=== PATIENT | male | born 1945 | race African-American/Black ===

== ENCOUNTER 2016-11-07 16:21 | Inpatient (IN) | payer MEDICARE ==
[~2016-11-07] VITALS: Ht 193 cm; Wt 112.0 kg
--- NOTE | ~2016-11-07 | OP ---
PATIENT NAME: CARLOS ALEMAN MEDICAL RECORD: [id number] :43 LOCATION:D.M2 D.2132 ADMISSION DATE:11/07/16 SURGEON: GHAZAL FONSECA MD DATE OF OPERATION: 11/10/2016 PROCEDURE: Colonoscopy. REFERRING PHYSICIAN: Yimi Knowles MD. INDICATIONS: Mr. Aleman is a very pleasant 71-year-old gentleman with a history of end-stage renal disease and resolving pancreatitis. He was admitted secondary to abdominal pain, but he has had no abdominal pain since admission. He had a CT scan of the abdomen and pelvis without contrast, 11/07/2016 that showed some mild stranding around the pancreatic head, large amount of fecal material in the colon, atrophic appearing kidneys. His amylase and lipase have been normal during his hospitalization. He has had some problems with constipation and he may have had a colonoscopy in the remote past. He presents for inpatient colonoscopy to rule out any GI source of abdominal pain. PREMEDICATIONS: Total IV anesthesia (end-stage renal disease), ASA 4, propofol 400 mg. INSTRUMENT: Olympus video colonoscope. PROCEDURE AND FINDINGS: After receiving informed consent, Mr. Aleman was placed in left lateral decubitus position and sedated as per anesthesia. After achieving an adequate level of sedation, digital rectal exam was performed that showed no external hemorrhoidal tags, fissures or fistulas, normal sphincter tone, no palpable rectal masses. The colonoscope was introduced per rectally and advanced to the cecum with a little difficulty. He had a long and redundant colon. The cecum, IC valve, and appendiceal orifice were identified and appeared normal. As the colonoscope was withdrawn, careful inspection was made of the brooks of the colon. Overall mucosa had a normal vascular and fold pattern. No masses, ulcers or diverticula were noted. Retroflexion in rectum showed no significant internal hemorrhoids. A fair prep was present. Mr. Aleman tolerated the procedure well, no immediate complications. ASSESSMENT: 1. Long and redundant colon, otherwise normal colonoscopy. 2. Chronic constipation. RECOMMENDATIONS: 1. MiraLax daily to twice a day as needed. 2. High fiber diet. 3. Stable for discharge from GI standpoint. TRANSINT:[id number] Voice Confirmation ID: [id number] DOCUMENT ID: [id number] OPERATIVE REPORT [id number] CARLOS ALEMAN GHAZAL FONSECA MD CC: YIMI KNOWLES MD [id number] DICTATION DATE: 11/10/16 1410 COATING MIXER TENDER: 11/10/16 4446 DIS IN 11/10/16 [facility] [address] [id number]
[~2016-11-07 16:21] MED LIST: AMITRIPTYLINE H50 MG PO; ARICEPT10 MG PO; BAYER CHEWABLE81 MG PO; BUMEX2 MG PO; CATAPRES0.1 MG PO; COLACE100 MG PO; FLOMAX0.4 MG PO; GLYCOLAX527 GM PO; HUMULIN N100 U/ML SC; LEVOTHYROXINE50 MCG PO; MECLIZINE HCL25 MG PO; METOLAZONE5 MG PO; NAMENDA5 MG PO; NITROQUICK0.4 MG SL; NORVASC10 MG PO; PLAVIX75 MG PO; RENVELA800 MG; RENVELA800 MG PO; SENSIPAR60 MG PO; TOPROL XL25 MG PO; TYLENOL W/CODEI1 TAB PO; ULTRAM50 MG PO; ZETIA10 MG PO
[2016-11-07 16:59] LABS: BASOPHILS 0.3 % (0-2); EOSINOPHILS 3.3 % (0-7); HEMATOCRIT 31.7 % (42.0-54.0); HEMOGLOBIN 10.6 g/dL (13.5-17.5); IMMATURE GRANULOCYTES 0.6 % (0-5); LYMPHOCYTES 7.9 % (15-50); MCH 29.6 pg (26.0-34.0); MCHC 33.4 g/dL (31.0-37.0); MCV 88.5 fL (80.0-100.0); MEAN PLATELET VOLUME 10.2 fL (7.4-10.4); NEUTROPHILS 73.9 % (40-80); RBC 3.58 10x6/uL (4.20-6.10); RDW 13.2 % (11.5-14.5); WBC 7.2 10x3/uL (4.8-10.8)
--- NOTE | 2016-11-07 17:00 | NUR ---
ARRIVE TO ROOM VIA WHEELCHAIR FROM [facility] ACCOMPANIED BY . ALERT AND ORIENTED X4. REPORTS VOICE CHANGE, ABDOMINAL PAIN, AND WEAKNESS. 4L TAKEN OFF DURING DIALYSIS TODAY. REPORTS 3L OVER DRY WEIGHT STILL. RESERVE LT ARM. LT AV FISTULA. BRUIT AND THRILL PRESENT. UNSUCCESSFUL IV SITE X2 ATTEMPTS. COMPLAINS OF SOB. IN ROOM ASSESSING PATIENT. CONTINUE ADMISSION PROCESS. SCDs IN ROOM. REFUSE SCDs ON AT THIS TIME. BED LOCKED AND LOW. CALL LIGHT IN REACH. TWO SIDERAILS UP.
[2016-11-07 17:22] LABS: PLATELET COUNT 224 10x3/uL (130-400)
[2016-11-07] MEDS ORDERED: REMERON15 MG PO (17:25)
[2016-11-07 17:34] LABS: ALBUMIN 3.1 g/dL (3.4-5.0); BILIRUBIN - TOTAL 0.31 mg/dL (0.2-1.3); CALCIUM 8.6 mg/dL (8.5-10.1); CARBON DIOXIDE 34.4 mmol/L (21.0-32.0); CREATININE - SERUM 4.4 mg/dL (0.6-1.3); POTASSIUM - SERUM 4.4 mmol/L (3.5-5.1); PROTEIN - SERUM 6.4 g/dL (6.4-8.2)
[2016-11-07 17:56] VITALS: BP 147/75; BMI 24.5
--- NOTE | 2016-11-07 19:25 | NUR ---
RECEIVED REPORT, PT DENIES ANY NEEDS, FAMILY AT BEDSIDE, CALL LIGHT IN REACH, BED IS LOW, SRX2, WILL CONTINUE CARE OF PLAN
[2016-11-07 20:00] VITALS: BP 132/68
--- NOTE | 2016-11-08 00:05 | NUR ---
EXPLAIN TO PT WE NEED A 24HR URINE, ASK HIM TO CALL AFTER HE VOIDS, SO WE CAN START
[2016-11-08 01:32] VITALS: BP 129/64
--- NOTE | 2016-11-08 01:46 | NUR ---
IV RESTARTED IN R AC WITH 20 1 IN ON 1ST ATTEMPT. CO LEGS ACHING. AT BEDSIDE.
[2016-11-08 04:16] VITALS: BP 116/61
--- NOTE | 2016-11-08 04:28 | NUR ---
ASSESSMENT COMPLETE, PT SLEEPING, STILL HASNT VOIDED, CALL LIGHT IN REACH, WILL CONTINUE PLAN OF CARE
[2016-11-08 06:27] LABS: BASOPHILS 0.8 % (0-2); HEMATOCRIT 31.1 % (42.0-54.0); HEMOGLOBIN 10.3 g/dL (13.5-17.5); IMMATURE GRANULOCYTES 0.3 % (0-5); MCH 29.2 pg (26.0-34.0); MCHC 33.1 g/dL (31.0-37.0); MCV 88.1 fL (80.0-100.0); MEAN PLATELET VOLUME 10.1 fL (7.4-10.4); MONOCYTES 11.9 % (2-11); PLATELET COUNT 219 10x3/uL (130-400); RBC 3.53 10x6/uL (4.20-6.10); RDW 13.4 % (11.5-14.5); WBC 6.5 10x3/uL (4.8-10.8)
[2016-11-08 06:55] LABS: ANION GAP 9.7 mmol/L (8-16); CALCIUM 8.9 mg/dL (8.5-10.1); CARBON DIOXIDE 32.8 mmol/L (21.0-32.0); CREATININE - SERUM 5.2 mg/dL (0.6-1.3); POTASSIUM - SERUM 4.5 mmol/L (3.5-5.1); THYROID STIMULATING HORMONE 0.75 uIU/mL (0.36-3.74)
--- NOTE | 2016-11-08 07:25 | NUR ---
PATIENT IS RESTING QUIETLY WITH EYES CLOSED I ENTER. AWOKE EASILY TO MY ENTRY. DENIES PAIN/NEEDS AT THIS TIME. SPOUSE IS ASLEEP WITH EYES CLOSED IN THE BEDSIDE CHAIR.
[2016-11-08 08:33] VITALS: BP 156/71
--- NOTE | 2016-11-08 10:30 | NUR ---
SELDOM URINATES PER STATEMENT. ASKED THAT HE NOTIFY STAFF WHEN HE DOES DUE TO NEED TO COLLECT ANY URINE.
[2016-11-08 12:31] VITALS: BP 141/65
--- NOTE | 2016-11-08 12:45 | NUR ---
INSULIN HELD THIS MEAL AGAIN DUE TO HIM ONLY DRINKING THE JUICE ON HIS CL DIET. WILL MONITOR CLOSELY. AT [facility] BEDSIDE IS ATTENTIVE TO HIS NEEDS. HE STATES THAT HE IS VERY HUNGRY AND WANTS TO EAT. HE VOICED UNDERSTANDING THAT HE IS TO REST THE BELLY TO ENCOURAGE HEALING.
[2016-11-08 13:58] VITALS: Ht 193 cm; Wt 112.0 kg
[2016-11-08 16:55] VITALS: BP 135/66
[2016-11-08 19:00] VITALS: BP 146/67
--- NOTE | 2016-11-08 19:25 | NUR ---
RECEIVED REPORT, PT ASKING ABOUT GI CONSULT, DR. IRAHETA WALK IN, HAS L. AVF-WNL, DIALYSIS- T, TH, SAT, BED IS LOW, SRX2, CALL LIGHT IN REACH, WILL CONTINUE PLAN OF CARE
--- NOTE | 2016-11-08 21:10 | NUR ---
BLOODSUGAR-271- 6 UNITS IF HUMALOG PER ORDER
--- NOTE | 2016-11-08 23:36 | NUR ---
CALLED SAID BS WAS DOWN- CHECK-42
--- NOTE | 2016-11-08 23:38 | NUR ---
YOJANA GAVE 25 AMP-D50
--- NOTE | 2016-11-08 23:43 | NUR ---
[facility].
--- NOTE | 2016-11-08 23:51 | NUR ---
BLOODSUGAR-154, PT ATE SOME JELLO
[2016-11-09 00:20] VITALS: BP 141/72
--- NOTE | 2016-11-09 00:37 | NUR ---
LUMBER BUYER AT BEDSIDE TO OBTAIN VITALS, CALL LIGHT IN REACH. WILL CONTINUE WITH PLAN OF CARE.
--- NOTE | 2016-11-09 00:57 | NUR ---
GLUCOSE PER LAB-91
--- NOTE | 2016-11-09 01:23 | NUR ---
PT WAS WALKING OUT IN [place], UN AWARE OF WHAT HE WAS DOING, RECHECK BLOODSUGAR-81, GAVE APPLE JUICE, PLACE PT BACK IN BED, PLACE NON SKID SOCK ON AND PLACED BED ALARM ON, WILL CONTINUE TO MONITOR
--- NOTE | 2016-11-09 04:15 | NUR ---
ASSESSMENT COMPLETE, SEE FLOWSHEET, SLEEPING, BED ALARM ON, AT BEDSIDE, CALL LIGHT IN REACH
[2016-11-09 04:37] VITALS: BP 157/78
[2016-11-09 06:54] LABS: BASOPHILS 0.3 % (0-2); EOSINOPHILS 4.1 % (0-7); IMMATURE GRANULOCYTES 0.2 % (0-5); MCH 29.2 pg (26.0-34.0); MCHC 33.3 g/dL (31.0-37.0); MCV 87.7 fL (80.0-100.0); MEAN PLATELET VOLUME 9.6 fL (7.4-10.4); MONOCYTES 9.8 % (2-11); NEUTROPHILS 74.6 % (40-80); PLATELET COUNT 222 10x3/uL (130-400); RBC 3.42 10x6/uL (4.20-6.10); WBC 6.1 10x3/uL (4.8-10.8)
[2016-11-09 07:14] LABS: ANION GAP 11.2 mmol/L (8-16); CALCIUM 8.2 mg/dL (8.5-10.1); CARBON DIOXIDE 31.4 mmol/L (21.0-32.0); POTASSIUM - SERUM 4.6 mmol/L (3.5-5.1)
[2016-11-09 08:20] VITALS: BP 145/67
--- NOTE | 2016-11-09 08:27 | NUR ---
PATIENT IS AWAKE ALERT AND ORIENTED X3, SPOUSE IS IN ROOM, SHE MOSTLY ANSWERS QUESTIONS BOUT HIS MEDS. SHE SAYS HE NEVER TAKES HUMALOG JUST HUMILIN N IN PM AND REGULAR INSULIN SLIDING SCALE.
--- NOTE | 2016-11-09 09:50 | NUR ---
DIALYASIS NURSE CALLED AND STATES SHE IS READY FOR PATIENT ASKED HER IF SPOUSE CAN COME WITH SHE NORMALLY DOES. NURSE STATES SHE CAN, BUT SHE WILL HAVE TO SIT AWAY D/T HIPPA. EXPLAINED THIS TO SPOUSE.
--- NOTE | 2016-11-09 10:05 | NUR ---
PATIENT GONE DOWN FOR DIALYSIS.
--- NOTE | 2016-11-09 12:00 | NUR ---
NO FSBS TAKEN PATIENT IS STILL IN DIALYSIS.
--- NOTE | 2016-11-09 14:36 | NUR ---
PATIENT IS BACK FROM DIALYSIS. HE IS UPSET THAT HE HAS NOT BEEN DISCHARGED. PATIENT JUST HAD A BOWEL MOVEMENT A SMALL ONE. HE IS SUPPOSED TO SEE THE Jeffery ALEXANDER
[2016-11-09 16:54] VITALS: BP 143/64
--- NOTE | 2016-11-09 19:30 | NUR ---
RESUMED CARE OF PT, PT DENIES ANY NEEDS, BED IS LOW, SRX2, AT BEDSIDE, CALL LIGHT IN REACH, WILL CONTINUE PLAN OF CARE
[2016-11-09 22:47] VITALS: BP 158/73
--- NOTE | 2016-11-10 00:34 | NUR ---
DIALYSIS COORDINATOR: PATHWAYS: [facility] TUES/THURS/SAT @ 6:30. RECORDS SENT TO HOME UNIT. BMM DC
--- NOTE | 2016-11-10 00:37 | NUR ---
TABLE FILLER AT BEDSIDE TO OBTAIN VITALS, CALL LIGHT IN REACH. WILL CONTINUE WITH PLAN OF CARE.
[2016-11-10 01:51] VITALS: BP 141/68
--- NOTE | 2016-11-10 03:53 | NUR ---
ASSESSMENT COMPLETE, SEE FLOWSHEET, BED IS LOW, SRX2, PT BEEN NPO SINCE MIDNIGHT, AT BEDSIDE, CALL LIGHT IN REACH, WILL CONTINUE PLAN OF CARE
[2016-11-10 05:08] LABS: BASOPHILS 0.6 % (0-2); HEMATOCRIT 28.5 % (42.0-54.0); HEMOGLOBIN 9.6 g/dL (13.5-17.5); IMMATURE GRANULOCYTES 0.4 % (0-5); LYMPHOCYTES 13.9 % (15-50); MCH 29.4 pg (26.0-34.0); MCHC 33.7 g/dL (31.0-37.0); MCV 87.4 fL (80.0-100.0); MEAN PLATELET VOLUME 9.8 fL (7.4-10.4); MONOCYTES 7.1 % (2-11); PLATELET COUNT 224 10x3/uL (130-400); RBC 3.26 10x6/uL (4.20-6.10); RDW 12.8 % (11.5-14.5); WBC 5.4 10x3/uL (4.8-10.8)
[2016-11-10 05:13] VITALS: BP 141/72
[2016-11-10 05:15] LABS: ANION GAP 11.5 mmol/L (8-16); CALCIUM 7.6 mg/dL (8.5-10.1); CARBON DIOXIDE 31.7 mmol/L (21.0-32.0); INR 1.07 (0.85-1.17); POTASSIUM - SERUM 4.2 mmol/L (3.5-5.1); PROTIME 13.7 SECONDS (11.6-15.0)
[2016-11-10 05:16] LABS: CREATININE - SERUM 4.4 mg/dL (0.6-1.3)
[2016-11-10 08:00] VITALS: BP 162/69
[2016-11-10 08:22] LABS: HEPATITIS C ANTIBODY <0.1 (0.0-0.9)
--- NOTE | 2016-11-10 08:47 | NUR ---
INTRODUCED MYSELF TO PT PRIMARY RN FOR TODAYS SHIFT. PT IS ALERT AND ORIENTED RESTING QUIETLY IN BED WITH AT BEDSIDE. PASSED MORNING MEDS WITH SIPS OF WATER. PT IS NPO FOR A COLONOSCOPY LATER TODAY. PT VERBALIZED UNDERSTANDING AND CONSENTS ARE SIGNED AND PRE-OP ORDERS COMPLETED. CL IN REACH, WILL CTM.
--- NOTE | 2016-11-10 10:45 | NUR ---
EKG COMPLETED PER PRE-OP ORDER. FILED IN CHART. PT RESTING AND DENIES ANY CURRENT PAIN OR NEEDS. WILL CTM.
[2016-11-10 12:00] VITALS: BP 156/75
--- NOTE | 2016-11-10 14:31 | NUR ---
PT RETURNED FROM COLONOSCOPY IN GI LAB. VSS AND WILL BE MONITERED PER POLICY. PT AWAKE BUT DROWSY. WILL CTM.
--- NOTE | 2016-11-10 16:30 | NUR ---
Patient Name: CARLOS JOY Admission Status: Urgent Accout number: [id number] Admission Date: 11-07-2016 : 1945 Admission Diagnosis: Attending: STEWART Current LOS: 3 Anticipated DC Date: 11-10-2016 Planned Disposition: Home Primary Insurance: MEDICARE A & B Discharge Planning Comments: * Is the patient Alert and Oriented? Yes 0 * How many steps to enter\exit or inside your home? 5 0 * PCP DR. NUNEZ IN [place] OR DR. SADI FOOTE - AUTO BODY REPAIR ESTIMATOR 0 * Pharmacy [facility] IN [place] OR [facility] 0 * Preadmission Environment Home with Family 0 * ADLs Independent 0 * Equipment Cane 0 * Other Equipment NO MEDICAL EQUIPMENT PROVIDER PREFERENCE 0 * List name and contact numbers for known caregivers / representatives who currently or will assist patient after discharge: WAYNE JOY, SPOUSE, 0 * Community resources currently utilized Other 0 * Please name any agencies selected above. OUTPATIENT DIALYSIS, [facility] IN [place], T/T/S, 0730AM, SP[employer]SE TRANSP[employer]TS 0 * Additional services required to return to the preadmission environment? No 0 * Can the patient safely return to the preadmission environment? Yes 0 * Has this patient been hospitalized within the prior 30 days at any hospital? No 0 CM MET WITH PT AND SPOUSE IN ROOM TO DISCUSS DISCHARGE PLANNING AND NEEDS. PT REPORTS LIVING AT HOME INDEPENDENTLY WITH SPOUSE. PT HAS A CANE WITH NO MEDICAL EQUIPMENT PROVIDER PREFERENCE. PT HAS NO OUTSIDE SERVICES ASSISTING IN THE HOME. CM DISCUSSED AVAILABILITY OF HOME HEALTH, REHAB SERVICES AND MEDICAL EQUIPMENT. PT DENIES DISCHARGE NEEDS, REPORTS A FRIEND IS ON THE WAY TO PICK HE AND HIS SPOUSE UP FOR TRANSPORT HOME. IMPORTANT MESSAGE FROM MEDICARE PROVIDED AND EXPLAINED. [employer] Delivery Driver: Monster Ramirez
--- NOTE | 2016-11-10 16:44 | NUR ---
DISCHARGE TEACHING PROVIDED AND PAPERS SIGNED. PT AND BOTH VERBALIZED UNDERSTANDING AND DENY ANY QUESTIONS OR CONCERNS. D/C PTS R.AC PIV WITH CATHETER TIP FULLY INTACT. PT COLLECTING HIS BELONGINGS AND AWAITING HIS RIDE. NO FURTHER NEEDS.
[2016-11-10 16:45] VITALS: BP 146/72
--- NOTE | 2016-11-10 17:20 | NUR ---
PT READY TO LEAVE FLOOR. ASSISTED INTO WHEELCHAIR AND TRANSPORTED DOWN TO LOBBY WITH .
== END 2016-11-10 17:23 | disposition home or self-care (01) | DRG 438 ==
LOC: D.M2 16:21
PROVIDERS: Internal Medicine; Internal Medicine Gastroenterology; Internal Medicine Nephrology; ADMIT Internal Medicine Nephrology
PROC: 0DJD8ZZ Inspection of Lower Intestinal Tract, Via Natural or Artificial Opening Endoscopic (ICD-10-PCS; principal; 2016-11-10 12:00)
DX: K85.90 Acute pancreatitis without necrosis or infection, unspecified (principal); N18.6 End stage renal disease; I12.0 Hypertensive chronic kidney disease with stage 5 chronic kidney disease or end stage renal disease; K59.09 Other constipation; E11.22 Type 2 diabetes mellitus with diabetic chronic kidney disease; Z99.2 Dependence on renal dialysis; F03.90 Unspecified dementia, unspecified severity, without behavioral disturbance, psychotic disturbance, mood disturbance, and anxiety; E03.9 Hypothyroidism, unspecified; Z86.73 Personal history of transient ischemic attack (TIA), and cerebral infarction without residual deficits

== ENCOUNTER 2016-11-23 12:24 | Inpatient (IN) | payer MEDICARE ==
[2016-11-23] VITALS (16 sets, daily range): BP systolic 82–148; BP diastolic 31–119; BMI 20.3
[~2016-11-23] VITALS: Ht 193 cm; Wt 87.0 kg
[~2016-11-23 12:24] MED LIST changes: +REMERON15 MG PO
[2016-11-23 14:32] LABS: BASOPHILS 0.4 % (0-2); EOSINOPHILS 0.2 % (0-7); IMMATURE GRANULOCYTES 0.6 % (0-5); LYMPHOCYTES 7.9 % (15-50); MCH 26.8 pg (26.0-34.0); MCHC 32.8 g/dL (31.0-37.0); MCV 81.7 fL (80.0-100.0); MEAN PLATELET VOLUME 10.1 fL (7.4-10.4); MONOCYTES 3.2 % (2-11); NEUTROPHILS 87.7 % (40-80); PLATELET COUNT 194 10x3/uL (130-400); RBC 2.24 10x6/uL (4.20-6.10); RDW 18.1 % (11.5-14.5); WBC 11.1 10x3/uL (4.8-10.8)
[2016-11-23 14:43] LABS: ALBUMIN 2.5 g/dL (3.4-5.0); ANION GAP 15.2 mmol/L (8-16); BILIRUBIN - TOTAL 0.19 mg/dL (0.2-1.3); CARBON DIOXIDE 26.2 mmol/L (21.0-32.0); CREATININE - SERUM 8.4 mg/dL (0.6-1.3); PROTEIN - SERUM 5.2 g/dL (6.4-8.2)
[2016-11-23 14:48] LABS: POTASSIUM - SERUM 7.4 mmol/L (3.5-5.1)
[2016-11-23 14:59] LABS: HEMATOCRIT 18.3 % (42.0-54.0)
[2016-11-23 17:24] LABS: BASOPHILS 0.3 % (0-2); EOSINOPHILS 0.3 % (0-7); IMMATURE GRANULOCYTES 0.3 % (0-5); LYMPHOCYTES 8.7 % (15-50); MCH 26.7 pg (26.0-34.0); MCHC 33.1 g/dL (31.0-37.0); MCV 80.5 fL (80.0-100.0); MONOCYTES 6.1 % (2-11); NEUTROPHILS 84.3 % (40-80); PLATELET COUNT 214 10x3/uL (130-400); RBC 2.21 10x6/uL (4.20-6.10); RDW 18.8 % (11.5-14.5); WBC 11.7 10x3/uL (4.8-10.8)
[2016-11-23 17:38] LABS: HEMATOCRIT 17.8 % (42.0-54.0); HEMOGLOBIN 5.9 g/dL (13.5-17.5)
[2016-11-23 20:22] LABS: BASOPHILS 0.2 % (0-2); EOSINOPHILS 0.5 % (0-7); IMMATURE GRANULOCYTES 0.5 % (0-5); LYMPHOCYTES 8.4 % (15-50); MCH 28.9 pg (26.0-34.0); MCHC 34.2 g/dL (31.0-37.0); MEAN PLATELET VOLUME 10.1 fL (7.4-10.4); MONOCYTES 4.1 % (2-11); NEUTROPHILS 86.3 % (40-80); PLATELET COUNT 227 10x3/uL (130-400); RDW 18.5 % (11.5-14.5)
[2016-11-23 20:32] LABS: HEMATOCRIT 29.2 % (42.0-54.0); MCV 84.4 fL (80.0-100.0); POTASSIUM - SERUM 2.9 mmol/L (3.5-5.1); RBC 3.46 10x6/uL (4.20-6.10); WBC 17.2 10x3/uL (4.8-10.8)
[2016-11-23 21:43] LABS: ANION GAP 13.6 mmol/L (8-16); CALCIUM 9.8 mg/dL (8.5-10.1); CARBON DIOXIDE 28.4 mmol/L (21.0-32.0); CREATININE - SERUM 3.2 mg/dL (0.6-1.3)
[2016-11-24] VITALS (23 sets, daily range): BP systolic 115–187; BP diastolic 47–125; Ht 193 cm; Wt 87.0 kg
[2016-11-24 04:13] LABS: BASOPHILS 0.3 % (0-2); EOSINOPHILS 1.4 % (0-7); IMMATURE GRANULOCYTES 0.7 % (0-5); LYMPHOCYTES 10.2 % (15-50); MCH 28.5 pg (26.0-34.0); MCHC 34.3 g/dL (31.0-37.0); MONOCYTES 8.4 % (2-11); RBC 2.77 10x6/uL (4.20-6.10); RDW 17.2 % (11.5-14.5)
[2016-11-24 04:14] LABS: HEMOGLOBIN 7.9 g/dL (13.5-17.5); PLATELET COUNT 180 10x3/uL (130-400); WBC 10.8 10x3/uL (4.8-10.8)
[2016-11-24 04:29] LABS: INR 1.11 (0.85-1.17); PROTIME 14.1 SECONDS (11.6-15.0)
[2016-11-24 04:34] LABS: ALBUMIN 2.5 g/dL (3.4-5.0); ANION GAP 10.2 mmol/L (8-16); BILIRUBIN - TOTAL 0.53 mg/dL (0.2-1.3); CALCIUM 8.5 mg/dL (8.5-10.1); CARBON DIOXIDE 30.1 mmol/L (21.0-32.0); POTASSIUM - SERUM 4.3 mmol/L (3.5-5.1)
[2016-11-24 04:38] LABS: CREATININE - SERUM 5.8 mg/dL (0.6-1.3)
[2016-11-24 10:29] LABS: BASOPHILS 0.6 % (0-2); EOSINOPHILS 1.9 % (0-7); HEMATOCRIT 22.5 % (42.0-54.0); HEMOGLOBIN 7.7 g/dL (13.5-17.5); LYMPHOCYTES 9.8 % (15-50); MCH 28.7 pg (26.0-34.0); MCHC 34.2 g/dL (31.0-37.0); MEAN PLATELET VOLUME 9.5 fL (7.4-10.4); MONOCYTES 9.3 % (2-11); NEUTROPHILS 77.4 % (40-80); PLATELET COUNT 171 10x3/uL (130-400); RBC 2.68 10x6/uL (4.20-6.10); RDW 17.5 % (11.5-14.5)
--- NOTE | 2016-11-24 14:34 | OP ---
PATIENT NAME: CARLOS JOY MEDICAL RECORD: [id number] :43 LOCATION:.[facility] D.2303 ADMISSION DATE:11/23/16 SURGEON: ROHIT ISAACS MD DATE OF OPERATION: 11/23/2016 PREOPERATIVE DIAGNOSES: 1. End-stage renal disease. 2. Anemia of chronic disease. 3. Hypotension. 4. Clotted arteriovenous fistula. POSTOPERATIVE DIAGNOSES: 1. End-stage renal disease. 2. Anemia of chronic disease. 3. Hypotension. 4. Clotted arteriovenous fistula. PROCEDURE: Right IJ Trialysis placement. SURGEON: Rohit Isaacs MD REPORT OF PROCEDURE: The patient's right neck was prepped and draped in sterile fashion, 5 mL of 1% lidocaine was infused into the subcutaneous tissues. Under ultrasound guidance, a needle was then used to cannulate the right internal jugular vein. The guidewire was advanced with ease. Over this wire, the dilators were placed followed by the Trialysis catheter. The catheter aspirated nonpulsatile dark blood and flushed easily in all 3 ports. This was sutured into place with 4-0 nylons and dressed appropriately. COMPLICATIONS: None. CONDITION: Stable. ANESTHESIA: Local. BLOOD LOSS: Minimal. Procedure done at the bedside. TRANSINT:[id number] Voice Confirmation ID: [id number] DOCUMENT ID: [id number] ROHIT ISAACS MD at 1434 CC: [id number] DICTATION DATE: 11/23/16 1642 VETERINARY SURGERY TECHNICIAN: 11/24/16 0624 ADM IN [id number] [place] [address]
[2016-11-24 17:19] LABS: BASOPHILS 0.5 % (0-2); EOSINOPHILS 2.5 % (0-7); IMMATURE GRANULOCYTES 0.7 % (0-5); LYMPHOCYTES 8.3 % (15-50); MCH 29.4 pg (26.0-34.0); MCHC 34.4 g/dL (31.0-37.0); MCV 85.6 fL (80.0-100.0); MEAN PLATELET VOLUME 9.9 fL (7.4-10.4); MONOCYTES 8.5 % (2-11); NEUTROPHILS 79.5 % (40-80); PLATELET COUNT 166 10x3/uL (130-400); RDW 16.2 % (11.5-14.5); WBC 9.7 10x3/uL (4.8-10.8)
[2016-11-24 17:32] LABS: HEMATOCRIT 30.8 % (42.0-54.0); HEMOGLOBIN 10.6 g/dL (13.5-17.5)
[2016-11-24 23:04] LABS: BASOPHILS 0.3 % (0-2); EOSINOPHILS 0.9 % (0-7); HEMATOCRIT 31.1 % (42.0-54.0); HEMOGLOBIN 10.7 g/dL (13.5-17.5); IMMATURE GRANULOCYTES 0.4 % (0-5); LYMPHOCYTES 8.4 % (15-50); MCH 29.3 pg (26.0-34.0); MCHC 34.4 g/dL (31.0-37.0); MCV 85.2 fL (80.0-100.0); MEAN PLATELET VOLUME 10.3 fL (7.4-10.4); MONOCYTES 4.3 % (2-11); NEUTROPHILS 85.7 % (40-80); PLATELET COUNT 176 10x3/uL (130-400); RBC 3.65 10x6/uL (4.20-6.10); RDW 16.2 % (11.5-14.5); WBC 11.7 10x3/uL (4.8-10.8)
[2016-11-25] VITALS (35 sets, daily range): BP systolic 95–195; BP diastolic 52–113
[2016-11-25 01:46] LABS: BASOPHILS 0.3 % (0-2); HEMATOCRIT 31.7 % (42.0-54.0); IMMATURE GRANULOCYTES 0.6 % (0-5); LYMPHOCYTES 7.5 % (15-50); MCH 29.6 pg (26.0-34.0); MCHC 34.7 g/dL (31.0-37.0); MCV 85.4 fL (80.0-100.0); MEAN PLATELET VOLUME 9.7 fL (7.4-10.4); NEUTROPHILS 86.6 % (40-80); PLATELET COUNT 177 10x3/uL (130-400); RBC 3.71 10x6/uL (4.20-6.10); RDW 16.4 % (11.5-14.5); WBC 11.6 10x3/uL (4.8-10.8)
[2016-11-25 01:53] LABS: ANION GAP 16.5 mmol/L (8-16); CALCIUM 8.5 mg/dL (8.5-10.1); CARBON DIOXIDE 25.7 mmol/L (21.0-32.0); CREATININE - SERUM 6.4 mg/dL (0.6-1.3); POTASSIUM - SERUM 4.2 mmol/L (3.5-5.1)
[2016-11-25 06:30] LABS: BASOPHILS 0.3 % (0-2); EOSINOPHILS 1.4 % (0-7); HEMATOCRIT 32.6 % (42.0-54.0); HEMOGLOBIN 11.2 g/dL (13.5-17.5); IMMATURE GRANULOCYTES 0.4 % (0-5); LYMPHOCYTES 6.6 % (15-50); MCH 29.2 pg (26.0-34.0); MCHC 34.4 g/dL (31.0-37.0); MCV 84.9 fL (80.0-100.0); MONOCYTES 9.1 % (2-11); NEUTROPHILS 82.2 % (40-80); PLATELET COUNT 201 10x3/uL (130-400); RBC 3.84 10x6/uL (4.20-6.10); RDW 16.3 % (11.5-14.5); WBC 11.5 10x3/uL (4.8-10.8)
[2016-11-25 06:38] LABS: ANION GAP 14.5 mmol/L (8-16); CALCIUM 8.7 mg/dL (8.5-10.1); CARBON DIOXIDE 25.5 mmol/L (21.0-32.0); CREATININE - SERUM 6.5 mg/dL (0.6-1.3)
[2016-11-25 10:31] LABS: BASOPHILS 0.3 % (0-2); EOSINOPHILS 2.4 % (0-7); HEMOGLOBIN 11.4 g/dL (13.5-17.5); IMMATURE GRANULOCYTES 0.4 % (0-5); LYMPHOCYTES 6.1 % (15-50); MCH 29.6 pg (26.0-34.0); MCHC 34.5 g/dL (31.0-37.0); MCV 85.7 fL (80.0-100.0); MEAN PLATELET VOLUME 10.1 fL (7.4-10.4); MONOCYTES 12.4 % (2-11); NEUTROPHILS 78.4 % (40-80); PLATELET COUNT 204 10x3/uL (130-400); RBC 3.85 10x6/uL (4.20-6.10); RDW 16.5 % (11.5-14.5); WBC 11.5 10x3/uL (4.8-10.8)
[2016-11-25 16:19] LABS: BASOPHILS 0.2 % (0-2); EOSINOPHILS 3.1 % (0-7); HEMATOCRIT 34.1 % (42.0-54.0); HEMOGLOBIN 11.9 g/dL (13.5-17.5); IMMATURE GRANULOCYTES 0.2 % (0-5); LYMPHOCYTES 8.3 % (15-50); MCH 29.7 pg (26.0-34.0); MCHC 34.9 g/dL (31.0-37.0); NEUTROPHILS 82.2 % (40-80); PLATELET COUNT 209 10x3/uL (130-400); RBC 4.01 10x6/uL (4.20-6.10); RDW 16.3 % (11.5-14.5)
[2016-11-25 22:11] LABS: BASOPHILS 0.3 % (0-2); EOSINOPHILS 4.8 % (0-7); HEMATOCRIT 31.5 % (42.0-54.0); HEMOGLOBIN 10.8 g/dL (13.5-17.5); IMMATURE GRANULOCYTES 0.2 % (0-5); LYMPHOCYTES 5.9 % (15-50); MCH 29.5 pg (26.0-34.0); MCHC 34.3 g/dL (31.0-37.0); MCV 86.1 fL (80.0-100.0); MEAN PLATELET VOLUME 9.8 fL (7.4-10.4); MONOCYTES 11.5 % (2-11); NEUTROPHILS 77.3 % (40-80); PLATELET COUNT 182 10x3/uL (130-400); RBC 3.66 10x6/uL (4.20-6.10); RDW 16.3 % (11.5-14.5); WBC 8.8 10x3/uL (4.8-10.8)
[2016-11-26] VITALS (23 sets, daily range): BP systolic 93–150; BP diastolic 56–99
[2016-11-26 03:25] LABS: ANION GAP 11.6 mmol/L (8-16); CALCIUM 8.4 mg/dL (8.5-10.1); CARBON DIOXIDE 29.1 mmol/L (21.0-32.0); POTASSIUM - SERUM 3.7 mmol/L (3.5-5.1)
[2016-11-26 07:41] LABS: BASOPHILS 0.3 % (0-2); EOSINOPHILS 4.9 % (0-7); IMMATURE GRANULOCYTES 0.2 % (0-5); LYMPHOCYTES 7.5 % (15-50); MCH 29.6 pg (26.0-34.0); MCHC 34.4 g/dL (31.0-37.0); MCV 86.3 fL (80.0-100.0); MEAN PLATELET VOLUME 10.3 fL (7.4-10.4); MONOCYTES 10.5 % (2-11); NEUTROPHILS 76.6 % (40-80); RBC 3.71 10x6/uL (4.20-6.10); RDW 16.8 % (11.5-14.5); WBC 9.1 10x3/uL (4.8-10.8)
[2016-11-26 07:42] LABS: PLATELET COUNT 221 10x3/uL (130-400)
[2016-11-27] VITALS (17 sets, daily range): BP systolic 101–142; BP diastolic 45–108
[2016-11-27 04:34] LABS: BASOPHILS 0.5 % (0-2); EOSINOPHILS 8.5 % (0-7); HEMATOCRIT 32.8 % (42.0-54.0); HEMOGLOBIN 11.1 g/dL (13.5-17.5); IMMATURE GRANULOCYTES 0.2 % (0-5); LYMPHOCYTES 6.9 % (15-50); MCH 29.8 pg (26.0-34.0); MCHC 33.8 g/dL (31.0-37.0); MCV 88.2 fL (80.0-100.0); MEAN PLATELET VOLUME 10.1 fL (7.4-10.4); MONOCYTES 9.8 % (2-11); NEUTROPHILS 74.1 % (40-80); PLATELET COUNT 224 10x3/uL (130-400); RBC 3.72 10x6/uL (4.20-6.10); RDW 16.4 % (11.5-14.5); WBC 8.8 10x3/uL (4.8-10.8)
[2016-11-27 05:00] LABS: ANION GAP 13.3 mmol/L (8-16); CALCIUM 8.2 mg/dL (8.5-10.1); CARBON DIOXIDE 28.7 mmol/L (21.0-32.0); CREATININE - SERUM 7.2 mg/dL (0.6-1.3); PHOSPHOROUS 4.2 mg/dL (2.5-4.9)
[2016-11-27] MEDS ORDERED: CHRONULAC30 ML PO (17:14)
[2016-11-28 03:48] VITALS: BP 118/53
[2016-11-28 05:26] LABS: BASOPHILS 0.3 % (0-2); EOSINOPHILS 11.8 % (0-7); HEMATOCRIT 29.3 % (42.0-54.0); HEMOGLOBIN 9.8 g/dL (13.5-17.5); IMMATURE GRANULOCYTES 0.3 % (0-5); LYMPHOCYTES 10.1 % (15-50); MCH 29.5 pg (26.0-34.0); MCHC 33.4 g/dL (31.0-37.0); MCV 88.3 fL (80.0-100.0); MEAN PLATELET VOLUME 9.4 fL (7.4-10.4); MONOCYTES 10.1 % (2-11); NEUTROPHILS 67.4 % (40-80); PLATELET COUNT 219 10x3/uL (130-400); RBC 3.32 10x6/uL (4.20-6.10); RDW 16.2 % (11.5-14.5)
[2016-11-28 05:27] LABS: WBC 6.5 10x3/uL (4.8-10.8)
[2016-11-28 05:48] LABS: ANION GAP 13.6 mmol/L (8-16); CALCIUM 7.8 mg/dL (8.5-10.1); CARBON DIOXIDE 27.1 mmol/L (21.0-32.0); CREATININE - SERUM 8.3 mg/dL (0.6-1.3); POTASSIUM - SERUM 3.7 mmol/L (3.5-5.1)
[2016-11-28 07:42] VITALS: BP 119/57
[2016-11-28] MEDS ORDERED: CARAFATE1 G/10 ML PO (11:25)
[2016-11-28] MEDS ORDERED: PROTONIX40 MG PO (11:25)
--- NOTE | 2016-11-28 17:19 | OP ---
PATIENT NAME: CARLOS ALEMAN MEDICAL RECORD: [id number] :43 LOCATION:D.M2 D.2135 ADMISSION DATE:11/23/16 SURGEON: GHAZAL FONSECA MD DATE OF OPERATION: 11/24/2016 PROCEDURE: EGD with biopsy and epinephrine injection. REFERRING PHYSICIAN: Dr. Michel. INDICATIONS: Mr. Aleman is a delightful 71-year-old gentleman with a history of end-stage renal disease, coronary artery disease and CVA, who presented with melenic stools, coffee-ground emesis and anemia due to acute blood loss. He had had a recent hospitalization for pancreatitis, had had a colonoscopy earlier this month, which was unremarkable. He has received 2 of 4 units of packed red blood cells. He presents for bedside EGD. PREMEDICATIONS: Total IV anesthesia (ASA 4, end-stage renal disease, coronary artery disease, history of CVA) propofol 100 mg. INSTRUMENT: Olympus video gastroscope and a gold probe with injectable needle. PROCEDURE AND FINDINGS: After receiving informed consent, Mr. Aleman's posterior pharynx was anesthetized with Cetacaine spray, placed in left lateral decubitus position and sedated as per anesthesia. After achieving an adequate level of sedation, gastroscope was introduced per orally and advanced to the duodenum without difficulty. The esophageal mucosa was without erythema, ulcers, strictures, masses, appeared normal down the GE junction. A small sliding type hiatal hernia is present. Gastric mucosa was notable for small ulcer in the fundus, superficial, nonhemorrhagic. There was also a small, but very punctate ulcer in the antrum with surrounding erythema and edema, but no active bleeding, no visible vessel. Antral biopsies were obtained to rule out Helicobacter pylori. There were no lesions seen in the body of the stomach. The pylorus was patent and competent. Within the duodenal bulb towards the apex was a very large, deeply cratered ulcer. No visible vessel. There were several smaller ulcers just proximal to the very large cratered ulcer. The edge of the larger ulcer had minimal oozing of blood and the edge was injected with 1 cc of 1:10,000 epinephrine with good results. Second portion of duodenum appeared normal. The large cratered ulcer was nonobstructive. The gastroscope was then withdrawn. Mr. Aleman tolerated the procedure well, no immediate complications. ASSESSMENT: 1. Small hiatal hernia. 2. Small ulcer in the fundus and in the antrum, status post antral biopsy. No active bleeding. 3. Very large cratered ulcer with several smaller ulcers in the duodenal bulb. No visible vessel, but the edge of the larger ulcer was oozing a little bit, status post epinephrine injection with good hemostasis. 4. Anemia, acute, secondary to gastrointestinal blood loss (gastric and duodenal ulcers). RECOMMENDATIONS: 1. For rebleeding, recommend consulting IR for arteriogram, possible gastroduodenal artery embolization as the duodenal ulcer is very large and deeply cratered ____. 2. Continue Protonix drip. OPERATIVE REPORT [id number] CARLOS ALEMAN 3. Sucralfate liquid 1 gram q.4 hours for 24 hours and 4 times a day. 4. Hemoglobin and hematocrit q.6 hours. 5. Ice chips. 6. Continue ICU monitoring. TRANSINT:[id number] Voice Confirmation ID: [id number] DOCUMENT ID: [id number] GHAZAL FONSECA MD at 1719 CC: NEDA MICHEL MD [id number] DICTATION DATE: 11/24/16 1018 SR ACCOUNT EXECUTIVE: 11/24/161999 DIS IN 11/28/16 [facility] [address] [place] [address]
== END 2016-11-28 16:12 | disposition home or self-care (01) | DRG 377 ==
LOC: D.ICU 12:24 → D.M2 11-27 16:47
PROVIDERS: Internal Medicine Gastroenterology; Internal Medicine Nephrology; ADMIT Internal Medicine
PROC: 02HV33Z Insertion of Infusion Device into Superior Vena Cava, Percutaneous Approach (ICD-10-PCS; principal; 2016-11-23)
PROC: B548ZZA Ultrasonography of Superior Vena Cava, Guidance (ICD-10-PCS; 2016-11-23)
PROC: 5A1D60Z (ICD-10-PCS; 2016-11-23)
PROC: 0DB98ZX Excision of Duodenum, Via Natural or Artificial Opening Endoscopic, Diagnostic (ICD-10-PCS; 2016-11-24)
PROC: 0DB68ZX Excision of Stomach, Via Natural or Artificial Opening Endoscopic, Diagnostic (ICD-10-PCS; 2016-11-24)
PROC: 3E0G8GC Introduction of Other Therapeutic Substance into Upper GI, Via Natural or Artificial Opening Endoscopic (ICD-10-PCS; 2016-11-24)
DX: K26.4 Chronic or unspecified duodenal ulcer with hemorrhage (principal); N18.6 End stage renal disease; I12.0 Hypertensive chronic kidney disease with stage 5 chronic kidney disease or end stage renal disease; T82.858A Stenosis of other vascular prosthetic devices, implants and grafts, initial encounter; D62 Acute posthemorrhagic anemia; E87.5 Hyperkalemia; E11.22 Type 2 diabetes mellitus with diabetic chronic kidney disease; Z99.2 Dependence on renal dialysis; Y83.8 Other surgical procedures as the cause of abnormal reaction of the patient, or of later complication, without mention of misadventure at the time of the procedure; I95.9 Hypotension, unspecified; F03.90 Unspecified dementia, unspecified severity, without behavioral disturbance, psychotic disturbance, mood disturbance, and anxiety; K25.9 Gastric ulcer, unspecified as acute or chronic, without hemorrhage or perforation; K44.9 Diaphragmatic hernia without obstruction or gangrene; Z86.73 Personal history of transient ischemic attack (TIA), and cerebral infarction without residual deficits

== ENCOUNTER 2017-02-05 09:10 | Day surgery (SDC) | payer MEDICARE ==
[~2017-02-05] VITALS: Ht 193 cm; Wt 90.0 kg
[~2017-02-05 09:10] MED LIST changes: +CARAFATE1 G/10 ML PO; +CHRONULAC30 ML PO; +PROTONIX40 MG PO; -REMERON15 MG PO; +REMERON30 MG PO; -RENVELA800 MG
[2017-02-05 10:11] LABS: BASOPHILS 0.7 % (0-2); EOSINOPHILS 4.5 % (0-7); HEMATOCRIT 34.4 % (42.0-54.0); HEMOGLOBIN 11.4 g/dL (13.5-17.5); IMMATURE GRANULOCYTES 0.3 % (0-5); LYMPHOCYTES 19.6 % (15-50); MCHC 33.1 g/dL (31.0-37.0); MCV 87.5 fL (80.0-100.0); MEAN PLATELET VOLUME 10.2 fL (7.4-10.4); MONOCYTES 4.2 % (2-11); NEUTROPHILS 70.7 % (40-80); PLATELET COUNT 194 10x3/uL (130-400); RBC 3.93 10x6/uL (4.20-6.10); RDW 13.4 % (11.5-14.5); WBC 7.1 10x3/uL (4.8-10.8)
[2017-02-05 10:27] LABS: ANION GAP 12.7 mmol/L (8-16); CALCIUM 8.6 mg/dL (8.5-10.1); CARBON DIOXIDE 30.3 mmol/L (21.0-32.0); CREATININE - SERUM 8.1 mg/dL (0.6-1.3)
[2017-02-05] MEDS ORDERED: HUMULIN R100 U/ML SC (10:33)
[2017-02-05] MEDS ORDERED: NAMENDA10 MG PO (10:33)
[2017-02-05] MEDS ORDERED: PROMETHAZINE V180 ML PO (10:34)
[2017-02-05 10:39] VITALS: Ht 193 cm; Wt 90.0 kg
[2017-02-05 11:13] LABS: APTT 27.6 SECONDS (22.8-39.4); INR 0.94 (0.85-1.17); PROTIME 12.4 SECONDS (11.6-15.0)
--- NOTE | 2017-02-06 14:43 | OP ---
PATIENT NAME: CARLOS JOY SR MEDICAL RECORD: [id number] :43 LOCATION:[facility] ADMISSION DATE: SURGEON: LEO CONWAY DO DATE OF OPERATION: 02/05/2017 PROCEDURE: EGD with biopsies. INDICATIONS FOR PROCEDURE: Previous gastric ulcer and duodenal ulcers visualized on the examination on 11/24/2016. This is a reevaluation of those ulcers. SCOPE: Olympus video gastroscope. MEDICATIONS: Propofol 140 mg IV per anesthesia. ESTIMATED BLOOD LOSS: Minimal. COMPLICATIONS: None. FINDINGS: Informed consent was given. The patient was made comfortable with the above medication. After reaching an adequate level of sedation by slow IV push, the patient was placed on his left side. The endoscope was then advanced under direct visualization through the mouth to the second portion of the duodenum. The upper, middle, and lower thirds of the esophagus appeared normal. At the GE junction, there was evidence of mild LA class A reflux-induced esophagitis. The scope was advanced beyond the GE junction into the stomach and retroflexed to view the cardia, where a small sliding hiatal hernia was present. The fundus of the stomach appeared normal. Throughout the body, antrum, and prepyloric region, there were patchy areas of erythema and granularity consistent with gastritis. Random biopsies were taken to submit for histology and to rule out H. pylori. The previously identified ulcers in the stomach and were no longer present. The endoscope was advanced beyond the pylorus into the duodenal bulb where there was some erythema and granularity consistent with inflammation and duodenitis. The scope was advanced beyond the bulb into the first portion and around the loop to the second portion of the duodenum. The previously visualized ulcer has healed and it is no longer present. The second portion of the duodenum appears normal. The scope was withdrawn from the patient. The patient tolerated the procedure well and there were no complications. IMPRESSION: 1. LA class A reflux-induced esophagitis. 2. Small sliding hiatal hernia. 3. Gastritis. 4. Duodenitis. PLAN AND RECOMMENDATIONS: 1. Discharge home when recovery parameters are met. 2. Follow up biopsy specimen results. 3. Continue current medications including Protonix and Carafate, but decrease Protonix to 40 mg daily. 4. Follow up in GI clinic as needed. 5. Notify GI clinic if symptoms worsen. TRANSINT:[id number] Voice Confirmation ID: [id number] DOCUMENT ID: [id number] OPERATIVE REPORT [id number] CARLOS JOY SR, NATHAN A DO at 1443 CC: [id number] DICTATION DATE: 02/05/17 1118 ANIMAL HUSBANDRY PROFESSOR: 02/05/17 1324 [facility] 02/05/17 [id number] [place] [id number]
== END 2017-02-05 12:25 | disposition home or self-care (01) ==
LOC: D.OPS 09:10
PROVIDERS: Anesthesiology
DX: K21.0 Gastro-esophageal reflux disease with esophagitis (principal); K44.9 Diaphragmatic hernia without obstruction or gangrene; K29.50 Unspecified chronic gastritis without bleeding; K29.80 Duodenitis without bleeding; Z01.812 Encounter for preprocedural laboratory examination

== ENCOUNTER 2019-02-13 20:24 | Inpatient (IN) | payer MEDICARE ==
[~2019-02-13] VITALS: Ht 193 cm; Wt 77.7 kg
--- NOTE | ~2019-02-13 | HEMODYNAMI ---
PATIENT:CARLOS JOY SR MEDICAL RECORD: [id number] : 41 LOCATION:[address] [facility]# [id number] ADMISSION DATE: 02/13/19 Generatedon:02/18/20198:38 Patient name: CARLOS JOY Patient #: [id number] SSN: DO B: 1945 Date of study: 02/18/2019 Page: Of Hemodynamic Procedure Report Patient Data Patient Demographics Procedure consent was obtained First Name: CARLOS Gender: Male Last Name: RUFINO Suffix: Patient #: [id number] : 1945 Age: 73 year(s) Accession #: Race: Black [id number] Additional ID: [id number] Contact details [address]: [address] [place] [address] State: [place] City: [place] Zip code: [address] Admission Admission Data Admission Date: 02/13/2019 Admission Time: 20:48 Arrival Date: 02/13/2019 Arrival Time: 20:48 Admit Source: Other Insurance Payor: Medicare, Room #: D.2128 Medicaid Lab Results Lab Result Date: 02/18/2019 Lab Result Time: 0:00 Biochemistry Name Units Result Min Max BUN mg/dl 113 --(----)-* 7 18 Creatinine mg/dl 9.9 --(----)-* 0.6 1.3 CBC Name Units Result Min Max Hemoglobin g/dl 9.5 *-(----)-- 13.5 17.5 Procedure Procedure Types Cath Procedure Diagnostic Procedure LHC LHC w/Coronaries Procedure Description Procedure Date Procedure Date: 02/18/2019 Procedure Start Time: 8:15 Procedure End Time: 8:37 Procedure Staff Name Function Dm Simons RT Monitor Suresh Galicia MD Performing Physician Erin Herron RN Nurse Jhon Rajput RT Scrub Katt Washington RT Scrub Procedure Data Cath Procedure Fluoroscopy Diagnostic fluoroscopy Total fluoroscopy Time: 4.4 time: 4.4 min min Diagnostic fluoroscopy Total fluoroscopy dose: 727 dose: 727 mGy mGy Contrast Material Contrast Material Type Amount (ml) Isovue 300 92 Entry Location Entry Primary Successful Side Size Upsize Upsize Entry Closure Succes sful Closure Location (Fr) 1 (Fr) 2 (Fr) Remarks Device Remarks Femoral Right 5 Fr Exoseal artery Estimated blood loss: 10 ml Diagnostic catheters Device Type Used For End Catheter Placement MULTIPACK JL 4.0 5Fr Procedure catheter MULTIPACK 3DRC 5Fr Procedure catheter MULTIPACK Pigtail 5 Fr Procedure catheter DIAGNOSTIC IM 5Fr Procedure catheter ([id number]) Procedure Medications Medication Administration Route Dosage 0.9% NaCl I.V. Oxygen etCO2 Nasal cannula 2 l/min Lidocaine 2% added to field 20 Heparin Flush Bag added to field 2 bags (1000units/500ml NS) Versed I.V. 2 mg Fentanyl I.V. 50 mcg Hemodynamics Rest Heart Rate: 75 (bpm) Pressure Samples Time Site Value (mmHg) Purpose Heart Use Rate(bpm) 8:24 LV 131/16,25 Snapshot 81 Gradients Valve Time Site Site Mean SEP/DFP Peak To Heart Use 1 2 (mmHg) (sec/min) Peak Rate (mmHg) (bpm) Aortic 8:25 LV AO 77 Snapshots Pre Cath Intra NCS Post Cath Vital Signs Time Heart Resp SPO2 etCO2 NIBP (mmHg) Rhythm Pain Sedation Rate (ipm) (%) (mmHg) Status Level (bpm) 8:05:04 76 18 99 30 148/81(107) NSR 0 (11) 10(A) , No pain 8:09:22 75 23 98 27 141/70(105) NSR 0 (11) 10(A) , No pain 8:13:36 78 32 97 31.5 132/72(104) NSR 0 (11) 10(A) , No pain 8:17:52 78 26 98 38.3 143/78(110) NSR 0 (11) 9(A) , No pain 8:22:10 79 27 97 40.5 139/78(120) NSR 0 (11) 9(A) , No pain 8:26:28 81 20 97 42.7 149/75(106) NSR 0 (11) 9(A) , No pain 8:30:42 80 24 98 39.8 140/78(108) NSR 0 (11) 10(A) , No pain 8:34:58 79 32 98 24.7 128/67(104) NSR 0 (11) 10(A) , No pain Medications Time Medication Route Dose Verified Delivered Reason Notes Effe ctiveness by by 8:04:10 0.9% NaCl I.V. kvo Suresh Erin used for ml/hr Grayson Herron power transformer inspector 8:04:17 Oxygen etCO2 2 Suresh Erin used for Nasal l/min Grayson Herron procedure cannula RN 8:04:21 Lidocaine 2% added 20ml Suresh Suresh for local to vial Grayson Galicia MD anesthetic field 8:04:26 Heparin Flush added 2 Suresh Suresh used for Bag to bags Grayson Galicia MD procedure (1000units/500ml field NS) 8:13:20 Versed I.V. 2 mg Suresh Erin for Grayson Herron sedation RN 8:13:32 Fentanyl I.V. 50 Suresh Erin for mcg Grayson Herron sedation market maker Log Time Note 7:39:45 Diagnostic Cath Status : Elective 7:43:12 Procedure Status Elective Heart Cath (OP). 7:43:15 Dm Simons RT(R) (CV) sent for patient. Start room use. 7:43:18 Time tracking: Regular hours (M-F 7:00 - 5:00) 7:43:23 Plan of Care:Hemodynamics will remain stable., Cardiac rhythm will remain stable., Comfort level will be maintained., Respiratory function will remain adequate., Patient/ family verbilizes understanding of procedure., Procedure tolerated without complication., Recovers from procedure without complications.. 7:44:11 Lab Result : BUN 113 mg/dl 7:44:11 Lab Result : Creatinine 9.9 mg/dl 7:44:11 Lab Result : Hemoglobin 9.5 g/dl 7:45:49 5) <15 or on dialysis Very severe, or end stage kidney failure. 7:46:24 Maximum allowable contrast dose (3.7 X eGFR X 0.75)19 ml. 7:55:08 Admit Source: Other 7:55:12 Arrival Date: 02/13/2019 8:48:00 PM 7:55:27 Insurance Payor : Medicare, Medicaid 7:56:49 Patient received from Med II to [facility] 1 Alert and oriented. Tansferred to table in Supine position. 7:56:51 Signed procedure consent form obtained from patient. 7:56:52 Warm blankets applied, and slime hugger turned on for patient comfort. 7:56:53 Correct patient and procedure confirmed by team. 7:56:53 ECG and BP/O2 sat monitors applied to patient. 8:02:14 Full Disclosure recording started 8:02:17 Pre-procedure instructions explained to patient. 8:02:17 Pre-op teaching completed and patient verbalized understanding. 8:02:19 Family in patients room. 8:02:21 Patient NPO since Midnight. 8:02:29 Is patient on blood thinner?Yes 8:02:39 PLAVIX HELD SINCE SUNDAY 8:03:53 Vital chart was started 8:04:10 0.9% NaCl kvo ml/hr I.V. was administered by Erin Herron RN; used for procedure; 8:04:17 Oxygen 2 l/min etCO2 Nasal cannula was administered by Erin Herron RN; used for procedure; 8:04:21 Lidocaine 2% 20ml vial added to field was administered by Suresh Galicia MD; for local anesthetic; 8:04:26 Heparin Flush Bag (1000units/500ml NS) 2 bags added to field was administered by Suresh Galicia MD; used for procedure; 8:08:44 H&P Date Dictated: 02/13/2019 Within 30 days and on chart.. 8:08:47 Baseline sample Acquired. 8:08:54 Rhythm: sinus rhythm 8:09:06 ST DEPRESSION 8:09:53 Patient diabetic? Yes. 8:09:55 If diabetic: On Metformin? No 8:09:58 ----Pre-sedation anethsthesia assessment.---- 8:10:02 Previous problem with sedation/anesthesia? No ? 8:10:04 Snore? Yes 8:10:05 Sleep apnea? No 8:10:07 Deviated septum? No 8:10:09 Opens mouth fully? Yes 8:10:10 Sticks out tongue? Yes 8:10:13 Airway obstruction? No ? 8:10:17 Dentures? No ? 8:10:22 Pt arrived to A&Ox4, no s/s of distress. Monitor shows NSR w/ ST depression, all other VSS 8:10:28 Pre procedure: right dorsailis pedis pulse 1+ Palpable, but thready & weak; easily obliterated 8:10:37 IV patent on arrival in right forearm with 0.9% NaCl at O. 8:10:42 Lab results completed and on chart. 8:11:03 Right groin area was prepped with chlora-prep and draped in sterile fashion 8:11:04 Alarms reviewed by RKaren N. 8:11:05 Sharps counted by scrub and verified by R.N. 8:11:06 Physician arrived 8:11:07 --------ALL STOP TIME OUT------ 8:11:07 Final Timeout: patient, procedure, and site verified with staff and physician. All members of the team are in agreement. 8:11:10 Right groin site verified by team. 8:11:17 Fire Safety Assessment: A--An alcohol-based skin anteseptic being used preoperatively., C--Open oxygen or nitrous oxide is being used., D--An ESU, laser, or fiber-optic light is being used. 8:11:31 Physical assessment completed. ASA score P 3 - A patient with severe systemic disease as per Suresh Galicia MD. 8:11:43 Sedation plan: TIVA Medication:Versed, Fentanyl 8:12:32 Use device set Femoral Dx 8:12:34 ACIST Syringe (13102) opened to sterile field. 8:12:35 Bag Decanter (2002) opened to sterile field. 8:12:36 Medline Cath Pack ([id number]) opened to sterile field. 8:12:37 ACIST Hand Control (93018) opened to sterile field. 8:12:37 ACIST Manifold (30958) opened to sterile field. 8:12:38 DIAGNOSTIC Multipack 5Fr catheter set (FX7250) opened to sterile field. 8:12:40 Tegaderm 4 x 4 (1626W) opened to sterile field. 8:12:41 SHEATH 5FR [place] (NFX379) opened to sterile field. 8:12:42 EMERALD Guide Wire (315-218) opened to sterile field. 8:13:20 Versed 2 mg I.V. was administered by Erin Herron RN; for sedation; 8:13:32 Fentanyl 50 mcg I.V. was administered by Erin Herron RN; for sedation; 8:14:46 Procedure started. 8:15:06 Local anesthetic to right femoral artery with Lidocaine 2% by Suresh Galicia MD.INITIAL ACCESS ONLY 8:17:55 A 5 Fr sheath was inserted into the Right Femoral artery 8:18:39 A MULTIPACK JL 4.0 5Fr catheter was advanced over the wire and used for Procedure. 8:21:21 LCA angiography performed. 8:21:34 Catheter removed. 8:22:22 A MULTIPACK 3DRC 5Fr catheter was advanced over the wire and used for Procedure. 8:22:57 RCA angiography performed. 8:23:26 Catheter removed. 8:24:05 A MULTIPACK Pigtail 5 Fr catheter was advanced over the wire and used for Procedure. 8:24:19 Zero performed for pressure channel P1 8:25:00 LV hemodynamics recorded. 8:25:01 LV gram done using NAVARRO 8:25:11 EF : 45 % 8:26:12 Catheter removed. 8:26:55 A DIAGNOSTIC IM 5Fr catheter ([id number]) was advanced over the wire and used for Procedure. 8:28:26 LAWSON to LAD angiography performed. 8:31:09 Catheter removed. 8:31:11 EXOSEAL 5Fr (EX500) opened to sterile field. 8:32:10 Sheath removed intact; hemostasis achieved with Exoseal to the Right Femoral artery. 8:32:15 Procedure ended.(Physican Out) 8:32:35 Fluoroscopy time 04.40 minutes. 8:32:40 Flurop Dose total: 727 8:32:40 Fluoroscopy dose: 727 mGy 8:32:49 Dose Area Product 66495 mGy/cm. 8:33:51 Contrast amount:Isovue 300 92ml. 8:33:54 Maximum allowable dose exceeded? Yes. 8:34:06 PHYSICIAN NOTIFIED 8:34:35 Sharps counted by scrub and verified by R.N. 8:36:28 Insertion/operative site no bleeding no hematoma. 8:36:33 Post-op/insertion site Right Femoral artery dressed using a 4 x 4 and Tegaderm. 8:36:37 Post right femoral artery:stable 8:36:40 Post Procedure Pulses reassessed and unchanged 8:36:44 Post procedure rhythm: unchanged. 8:36:48 Estimated blood loss: 10 ml 8:37:23 Patient needs reinforcement of post procedure teaching. 8:37:24 Procedure and supply charges have been captured, reviewed, submitted and are correct. 8:37:28 Vital chart was stopped 8:37:29 See physician's report for complete and final results. 8:37:32 Report given to [facility]. 8:37:36 Patient transfered to [facility] with Bed. 8:37:39 Procedure ended. 8:37:39 Full Disclosure recording stopped 8:37:48 End room use (Document Last) Device Usage Item Name Manufacture Quantity Catalog Hospital Part Current Minimal L ot# / Number Charge Number Stock Stock Serial# Code ACIST Acist 1 02316 860692 851034 145298 20 Syringe Medical (84813) Systems Inc Bag Microtek 1 2001S 127547 17013 116326 5 Decanter Medical Inc. () Medline Medline 1 [id number] 641119 14759 604838 5 Cath Pack ([id number]) ACIST Hand Acist 1 35527 774169 446361 228945 5 Control Medical (49303) Systems Inc ACIST Acist 1 88641 485935 911286 282014 5 Manifold Medical (62402) Systems Inc DIAGNOSTIC Cardinal 1 WJ2377 625285 71981 789346 30 Multipack Health 5Fr catheter set (CK0556) Tegaderm 4 3M 1 1626W 799815 688110 034455 5 x 4 (1626W) SHEATH 5FR Terumo 1 FZX004 747612 436631 672567 5 [place] (OWK926) EMERALD Cardinal 1 502-455 888665 138494 998491 5 Guide Wire Health (502-455) MULTIPACK Cardinal 1 114699 5 JL 4.0 5Fr Health catheter MULTIPACK Cardinal 1 583528 5 3DRC 5Fr Health catheter MULTIPACK Cardinal 1 258568 5 Pigtail 5 Health Fr catheter DIAGNOSTIC Cardinal 1 [id number] 878093 701269 644345 5 IM 5Fr Health catheter (742282O) EXOSEAL 5Fr Cardinal 1 EX500 684308 469292 181937 10 (EX500) Health Signature Audit [place] Stage Time Signature Unsigned Intra-Procedure 02/18/2019 Dm Simons 8:38:17 AM RT(R) (CV) Signatures Monitor : Dm Simons RT Signature : Date : Time : Performing Physician : Signature : Suresh Galicia MD Date : Time : Nurse : Erin Gopal RN Signature : Date : Time : [address] [address] [place] [address]
[~2019-02-13 20:24] MED LIST changes: +HUMULIN R100 U/ML SC; +NAMENDA10 MG PO; +PROMETHAZINE V180 ML PO
[2019-02-13 20:31] VITALS: BP 185/82
[2019-02-13] MEDS ORDERED: FLUTICASONE PRO16 GM NASAL (20:35)
[2019-02-13] MEDS ORDERED: VALISONE 0.1% C15 GM TOPICAL (20:35)
[2019-02-13] MEDS ORDERED: COZAAR25 MG PO (20:36)
[2019-02-13] MEDS ORDERED: RENVELA0.8 GM (20:36)
[2019-02-13] MEDS ORDERED: LIPITOR40 MG PO (20:36)
[2019-02-13] MEDS ORDERED: TYLENOL W/CODEI1 TAB PO (20:37)
[2019-02-13] MEDS ORDERED: SYNTHROID25 MCG PO (20:37)
[2019-02-13] MEDS ORDERED: TRAZODONE HCL150 MG PO (20:37)
[2019-02-14] VITALS: BP 164/78
[2019-02-14 01:21] LABS: BASOPHILS 0.2 % (0-2); EOSINOPHILS 0 % (0-7); HEMATOCRIT 32.2 % (42.0-54.0); HEMOGLOBIN 11.1 g/dL (13.5-17.5); IMMATURE GRANULOCYTES 0.3 % (0-5); LYMPHOCYTES 4.9 % (15-50); MCH 27.2 pg (26.0-34.0); MCHC 34.5 g/dL (31.0-37.0); MCV 78.9 fL (80.0-100.0); MEAN PLATELET VOLUME 10.2 fL (7.4-10.4); MONOCYTES 4.9 % (2-11); NEUTROPHILS 89.7 % (40-80); PLATELET COUNT 160 10x3/uL (130-400); RBC 4.08 10x6/uL (4.20-6.10); WBC 11.9 10x3/uL (4.8-10.8)
[2019-02-14 01:53] LABS: ALBUMIN 3.8 g/dL (3.4-5.0); ANION GAP 16.4 mmol/L (8-16); BILIRUBIN - TOTAL 0.95 mg/dL (0.2-1.3); CALCIUM 9.7 mg/dL (8.5-10.1); CARBON DIOXIDE 26.6 mmol/L (21.0-32.0); CREATININE - SERUM 7.6 mg/dL (0.6-1.3); MAGNESIUM - SERUM 1.4 mg/dL (1.8-2.4); PHOSPHOROUS 5.3 mg/dL (2.5-4.9); PROTEIN - SERUM 7.1 g/dL (6.4-8.2); VANCOMYCIN - RANDOM 14.8 ug/mL (10.0-20.0)
[2019-02-14 01:54] LABS: TROPONIN-I 1.809 ng/mL (0.000-0.060)
[2019-02-14 04:30] VITALS: BP 129/64
[2019-02-14 09:04] VITALS: BP 125/54
[2019-02-14 12:45] LABS: CKMB 3.5 U/L (0.0-3.6); CREATINE KINASE 96 UL (21-232)
[2019-02-14 12:47] LABS: TROPONIN-I 3.872 ng/mL (0.000-0.060)
[2019-02-14 13:41] VITALS: BMI 21.2
[2019-02-14 17:46] LABS: APTT 28.2 SECONDS (22.8-39.4); INR 1.26 (0.85-1.17); PROTIME 15.3 SECONDS (11.6-15.0)
[2019-02-14] MEDS ORDERED: PLAVIX75 MG PO (17:50)
[2019-02-14 18:17] LABS: CKMB 3.3 U/L (0.0-3.6); CREATINE KINASE 99 UL (21-232)
[2019-02-14 20:00] VITALS: BP 99/40
[2019-02-14 23:01] LABS: CKMB 2.1 U/L (0.0-3.6); CREATINE KINASE 74 UL (21-232)
[2019-02-14 23:03] LABS: TROPONIN-I 3.126 ng/mL (0.000-0.060)
[2019-02-15 06:08] LABS: BASOPHILS 0.5 % (0-2); EOSINOPHILS 1.8 % (0-7); HEMATOCRIT 29.5 % (42.0-54.0); IMMATURE GRANULOCYTES 0.2 % (0-5); LYMPHOCYTES 11.6 % (15-50); MCH 26.8 pg (26.0-34.0); MCHC 33.9 g/dL (31.0-37.0); MCV 79.1 fL (80.0-100.0); MEAN PLATELET VOLUME 10.4 fL (7.4-10.4); MONOCYTES 11.4 % (2-11); NEUTROPHILS 74.5 % (40-80); PLATELET COUNT 149 10x3/uL (130-400); RBC 3.73 10x6/uL (4.20-6.10); RDW 17.1 % (11.5-14.5)
[2019-02-15 06:15] LABS: INR 1.27 (0.85-1.17); PROTIME 15.4 SECONDS (11.6-15.0)
[2019-02-15 06:18] LABS: WBC 5.6 10x3/uL (4.8-10.8)
[2019-02-15 06:36] LABS: ANION GAP 12.2 mmol/L (8-16); CALCIUM 9.2 mg/dL (8.5-10.1); CARBON DIOXIDE 30.1 mmol/L (21.0-32.0); CREATININE - SERUM 6.3 mg/dL (0.6-1.3); MAGNESIUM - SERUM 1.5 mg/dL (1.8-2.4); PHOSPHOROUS 4.4 mg/dL (2.5-4.9); POTASSIUM - SERUM 4.3 mmol/L (3.5-5.1); VANCOMYCIN - RANDOM 14.5 ug/mL (10.0-20.0)
[2019-02-15 07:55] VITALS: BP 142/66
[2019-02-15 12:25] VITALS: BP 118/74
[2019-02-15 15:00] LABS: APPEARANCE CLOUDY (CLEAR); BILIRUBIN NEGATIVE (NEGATIVE); COLOR DK YELLOW (YELLOW); GLUCOSE NEGATIVE (NEGATIVE); KETONE NEGATIVE (NEGATIVE); NITRITE NEGATIVE (NEGATIVE); PROTEIN 3+ mg/dL (NEGATIVE); RED CELLS - URINE 0-5 /hpf (0-5); SPECIFIC GRAVITY 1.025 (1.005-1.020); UROBILINOGEN NORMAL (NORMAL)
[2019-02-15 16:02] VITALS: BP 119/78
[2019-02-15 20:00] VITALS: BP 99/49
[2019-02-16] VITALS: BP 108/44
[2019-02-16 05:24] LABS: BASOPHILS 0.6 % (0-2); EOSINOPHILS 2.8 % (0-7); HEMOGLOBIN 9.9 g/dL (13.5-17.5); LYMPHOCYTES 12.6 % (15-50); MCH 26.8 pg (26.0-34.0); MCHC 34.1 g/dL (31.0-37.0); MCV 78.6 fL (80.0-100.0); MEAN PLATELET VOLUME 10.3 fL (7.4-10.4); PLATELET COUNT 132 10x3/uL (130-400); RBC 3.69 10x6/uL (4.20-6.10); RDW 17.1 % (11.5-14.5); WBC 4.9 10x3/uL (4.8-10.8)
[2019-02-16 05:43] VITALS: BP 118/45
[2019-02-16 05:47] LABS: ANION GAP 13.8 mmol/L (8-16); CALCIUM 9.2 mg/dL (8.5-10.1); CARBON DIOXIDE 27.7 mmol/L (21.0-32.0); CREATININE - SERUM 7.7 mg/dL (0.6-1.3); MAGNESIUM - SERUM 1.6 mg/dL (1.8-2.4); PHOSPHOROUS 4.8 mg/dL (2.5-4.9); POTASSIUM - SERUM 4.5 mmol/L (3.5-5.1); VANCOMYCIN - RANDOM 23.9 ug/mL (10.0-20.0)
[2019-02-16 07:58] VITALS: BP 120/50
[2019-02-16 11:57] VITALS: BP 126/52
[2019-02-16 14:55] VITALS: BP 131/56
[2019-02-16 16:41] LABS: CKMB 1.2 U/L (0.0-3.6); CREATINE KINASE 54 UL (21-232)
[2019-02-16 16:43] LABS: TROPONIN-I 1.516 ng/mL (0.000-0.060)
[2019-02-16 20:00] VITALS: BP 108/43
[2019-02-16 22:39] LABS: CKMB 2.1 U/L (0.0-3.6); CREATINE KINASE 74 UL (21-232); TROPONIN-I 1.228 ng/mL (0.000-0.060)
[2019-02-17] VITALS (10 sets, daily range): BP systolic 100–129; BP diastolic 37–64
[2019-02-17 04:03] LABS: BASOPHILS 0.6 % (0-2); EOSINOPHILS 2.8 % (0-7); HEMATOCRIT 28.1 % (42.0-54.0); HEMOGLOBIN 9.6 g/dL (13.5-17.5); IMMATURE GRANULOCYTES 0.2 % (0-5); LYMPHOCYTES 12.5 % (15-50); MCH 26.7 pg (26.0-34.0); MCHC 34.2 g/dL (31.0-37.0); MCV 78.3 fL (80.0-100.0); MEAN PLATELET VOLUME 10.3 fL (7.4-10.4); MONOCYTES 9.5 % (2-11); NEUTROPHILS 74.4 % (40-80); PLATELET COUNT 150 10x3/uL (130-400); RBC 3.59 10x6/uL (4.20-6.10); RDW 16.5 % (11.5-14.5); WBC 5.4 10x3/uL (4.8-10.8)
[2019-02-17 04:40] LABS: CALCIUM 9.2 mg/dL (8.5-10.1); CARBON DIOXIDE 27.4 mmol/L (21.0-32.0); CHLORIDE - SERUM 101 mmol/L (98-107); CKMB 4.7 U/L (0.0-3.6); CREATINE KINASE 66 UL (21-232); CREATININE - SERUM 8.7 mg/dL (0.6-1.3); MAGNESIUM - SERUM 1.6 mg/dL (1.8-2.4); SODIUM 138 mmol/L (136-145); UREA NITROGEN 94 mg/dL (7-18); eGFR NON AFRICAN AMERICAN 6 mL/min (90-120)
[2019-02-17 04:46] LABS: CALC OSMOLALITY 309 mosm/kg (275-300); GLUCOSE 189 mg/dL (74-106); POTASSIUM - SERUM 3.8 mmol/L (3.5-5.1)
[2019-02-17 04:47] LABS: TROPONIN-I 1.923 ng/mL (0.000-0.060)
[2019-02-17 08:13] LABS: APTT 32.9 SECONDS (22.8-39.4); INR 1.16 (0.85-1.17); PROTIME 14.2 SECONDS (11.6-15.0)
[2019-02-17 12:16] LABS: PROTEIN - BODY FLUID 2.9 G/DL
[2019-02-17 14:25] LABS: MACROPHAGES BF 15 %; NEUT - BF 45 %
[2019-02-18 04:00] VITALS: BP 113/60
[2019-02-18 05:13] LABS: BASOPHILS 0.4 % (0-2); HEMATOCRIT 27.2 % (42.0-54.0); HEMOGLOBIN 9.5 g/dL (13.5-17.5); IMMATURE GRANULOCYTES 0.2 % (0-5); MCH 27.1 pg (26.0-34.0); MCHC 34.9 g/dL (31.0-37.0); MCV 77.5 fL (80.0-100.0); MEAN PLATELET VOLUME 10.3 fL (7.4-10.4); MONOCYTES 8.2 % (2-11); NEUTROPHILS 71.2 % (40-80); PLATELET COUNT 164 10x3/uL (130-400); RBC 3.51 10x6/uL (4.20-6.10); RDW 16.5 % (11.5-14.5); WBC 5.4 10x3/uL (4.8-10.8)
[2019-02-18 06:12] LABS: ANION GAP 18.2 mmol/L (8-16); CALCIUM 9.4 mg/dL (8.5-10.1); CARBON DIOXIDE 25.2 mmol/L (21.0-32.0); CREATININE - SERUM 9.9 mg/dL (0.6-1.3); MAGNESIUM - SERUM 1.6 mg/dL (1.8-2.4); PHOSPHOROUS 5.5 mg/dL (2.5-4.9)
[2019-02-18 06:17] LABS: POTASSIUM - SERUM 4.4 mmol/L (3.5-5.1)
[2019-02-18 20:00] VITALS: BP 107/44
[2019-02-18 20:06] LABS: ACID FAST SMEAR Negative (()); AFB SPECIMEN PROCESSING Concentration (())
[2019-02-19] VITALS: BP 100/40
[2019-02-19 04:00] VITALS: BP 129/63
[2019-02-19 04:52] LABS: ANION GAP 13.4 mmol/L (8-16); BASOPHILS 0.8 % (0-2); CALCIUM 9.3 mg/dL (8.5-10.1); CARBON DIOXIDE 27.7 mmol/L (21.0-32.0); CREATININE - SERUM 7.9 mg/dL (0.6-1.3); EOSINOPHILS 4.6 % (0-7); HEMATOCRIT 27.1 % (42.0-54.0); HEMOGLOBIN 9.4 g/dL (13.5-17.5); IMMATURE GRANULOCYTES 0.2 % (0-5); LYMPHOCYTES 9.2 % (15-50); MAGNESIUM - SERUM 1.6 mg/dL (1.8-2.4); MCH 26.9 pg (26.0-34.0); MCHC 34.7 g/dL (31.0-37.0); MCV 77.7 fL (80.0-100.0); MEAN PLATELET VOLUME 10.6 fL (7.4-10.4); NEUTROPHILS 75.2 % (40-80); PHOSPHOROUS 4.7 mg/dL (2.5-4.9); PLATELET COUNT 162 10x3/uL (130-400); POTASSIUM - SERUM 4.1 mmol/L (3.5-5.1); RBC 3.49 10x6/uL (4.20-6.10); RDW 16.5 % (11.5-14.5)
[2019-02-19 09:31] VITALS: BP 137/65
[2019-02-19 11:24] VITALS: BP 133/58
[2019-02-19] MEDS ORDERED: RANEXA500 MG PO (13:44)
[2019-02-19 14:09] LABS: FUNGUS STAIN Final report (())
--- NOTE | 2019-02-20 09:51 | MORECARE ---
CASE MANAGEMENT DISCHARGE SUMMARY PATIENT: CARLOS JOY SR UNIT: [id number] ADM DATE: 02/13/19 AGE: 73 : 43 SEX: M ROOM/BED: D.2128 AUTHOR: BO FERGUSON PHYSICIAN: REFERRING PHYSICIAN: LAQUITA ÁLVAREZ MD DATE OF SERVICE: 02/20/19 Discharge Plan Patient Name: CARLOS JOY Facility: [facility]:[place] : 1945 Planned Disposition: Home Anticipated Discharge Date: 02/19/19 Discharge Date: 02/19/2019 Expected LOS: 6 Initial Reviewer: [email or web address] Initial Review Date: 02/20/2019 Generated: 02/20/19 10:51 am Patient Name: CARLOS JOY Page 04137 at 0951 All edits/amendments must be made on the electronic document DICTATION DATE: 02/20/19950 PHOTOGRAPHER MODEL: ISMAEL 02/20/19950 RPT#: [id number] DC DATE:02/19/19 STATUS: DIS IN [facility] [address] [place] [address] END OF REPORT
[2019-02-20 15:05] VITALS: Ht 193 cm; Wt 77.7 kg
[2019-03-17 07:08] LABS: FUNGUS MYCOLOGY CULTURE Final report (())
== END 2019-02-19 16:03 | disposition home or self-care (01) | DRG 280 ==
LOC: D.ER 20:24 → D.M2 20:48
PROVIDERS: Family Medicine; General Practice; Internal Medicine Cardiovascular Disease; Internal Medicine Nephrology; Radiology Diagnostic Radiology; ADMIT Internal Medicine Nephrology; ATTEND Internal Medicine Nephrology
PROC: 0W9B3ZZ Drainage of Left Pleural Cavity, Percutaneous Approach (ICD-10-PCS; 2019-02-17)
PROC: B2121ZZ Fluoroscopy of Single Coronary Artery Bypass Graft using Low Osmolar Contrast (ICD-10-PCS; 2019-02-18)
PROC: B2181ZZ Fluoroscopy of Left Internal Mammary Bypass Graft using Low Osmolar Contrast (ICD-10-PCS; 2019-02-18)
PROC: B2151ZZ Fluoroscopy of Left Heart using Low Osmolar Contrast (ICD-10-PCS; 2019-02-18)
PROC: 4A023N7 Measurement of Cardiac Sampling and Pressure, Left Heart, Percutaneous Approach (ICD-10-PCS; 2019-02-18)
PROC: B2111ZZ Fluoroscopy of Multiple Coronary Arteries using Low Osmolar Contrast (ICD-10-PCS; principal; 2019-02-18 07:43)
DX: I21.4 Non-ST elevation (NSTEMI) myocardial infarction (principal); J18.9 Pneumonia, unspecified organism; N18.6 End stage renal disease; N13.8 Other obstructive and reflux uropathy; I12.0 Hypertensive chronic kidney disease with stage 5 chronic kidney disease or end stage renal disease; R18.8 Other ascites; J90 Pleural effusion, not elsewhere classified; N13.9 Obstructive and reflux uropathy, unspecified; E11.9 Type 2 diabetes mellitus without complications; N40.1 Benign prostatic hyperplasia with lower urinary tract symptoms; F03.90 Unspecified dementia, unspecified severity, without behavioral disturbance, psychotic disturbance, mood disturbance, and anxiety; E11.22 Type 2 diabetes mellitus with diabetic chronic kidney disease; E03.9 Hypothyroidism, unspecified; K59.01 Slow transit constipation; I25.10 Atherosclerotic heart disease of native coronary artery without angina pectoris; E83.42 Hypomagnesemia; D64.9 Anemia, unspecified; Z86.73 Personal history of transient ischemic attack (TIA), and cerebral infarction without residual deficits; J43.9 Emphysema, unspecified

== ENCOUNTER 2019-03-17 15:22 | Inpatient (IN) | payer MEDICARE ==
[~2019-03-17] VITALS: Ht 193 cm; Wt 73.1 kg
[~2019-03-17 15:22] MED LIST changes: +COZAAR25 MG PO; +FLUTICASONE PRO16 GM NASAL; +LIPITOR40 MG PO; +RANEXA500 MG PO; +RENVELA0.8 GM; +SYNTHROID25 MCG PO; +TRAZODONE HCL150 MG PO; +VALISONE 0.1% C15 GM TOPICAL
--- NOTE | 2019-03-17 17:08 | NUR ---
PATIENT TRANSPORTED TO DIALYSIS VIA STRETCHER. REPORT TO VENESSA MAJANO. PT TOLERATED WELL.
[2019-03-17 17:38] LABS: BASOPHILS 0.4 % (0-2); EOSINOPHILS 4.1 % (0-7); HEMOGLOBIN 8.4 g/dL (13.5-17.5); IMMATURE GRANULOCYTES 0.2 % (0-5); LYMPHOCYTES 12.4 % (15-50); MCH 27.4 pg (26.0-34.0); MCV 78.2 fL (80.0-100.0); MEAN PLATELET VOLUME 10.5 fL (7.4-10.4); MONOCYTES 10.4 % (2-11); NEUTROPHILS 72.5 % (40-80); RBC 3.07 10x6/uL (4.20-6.10); RDW 16.4 % (11.5-14.5); WBC 5.2 10x3/uL (4.8-10.8)
[2019-03-17 17:42] LABS: PLATELET COUNT 99 10x3/uL (130-400)
[2019-03-17 17:53] LABS: ALBUMIN 3.5 g/dL (3.4-5.0); ANION GAP 19.4 mmol/L (8-16); BILIRUBIN - TOTAL 0.74 mg/dL (0.2-1.3); CALCIUM 8.9 mg/dL (8.5-10.1); CARBON DIOXIDE 24.2 mmol/L (21.0-32.0); CREATININE - SERUM 10.9 mg/dL (0.6-1.3); POTASSIUM - SERUM 5.6 mmol/L (3.5-5.1); PROTEIN - SERUM 6.2 g/dL (6.4-8.2)
[2019-03-17 18:01] LABS: PLATELET ESTIMATE DECREASED
--- NOTE | 2019-03-17 18:09 | NUR ---
PT REMAINS IN DIALYSIS. REPORT TO VENESSA LA. ROOM ASSIGNMENT = 2104. SPOKE TO GRETEL TO LET HER KNOW PT TO GO TO ROOM 2105 UPON COMPLETION OF DIALYSIS.
--- NOTE | 2019-03-17 18:20 | NUR ---
PACKET GIVEN TO GRETEL GARCIA RN IN DIALYSIS.
[2019-03-18 03:20] VITALS: BP 128/49; BMI 20.7
[2019-03-18 04:30] VITALS: BP 150/61
[2019-03-18 05:54] LABS: ALBUMIN 3.6 g/dL (3.4-5.0); ANION GAP 18.1 mmol/L (8-16); BILIRUBIN - TOTAL 0.92 mg/dL (0.2-1.3); CALCIUM 9.2 mg/dL (8.5-10.1); CARBON DIOXIDE 26.1 mmol/L (21.0-32.0); CREATININE - SERUM 10.3 mg/dL (0.6-1.3); POTASSIUM - SERUM 5.2 mmol/L (3.5-5.1); PROTEIN - SERUM 6.6 g/dL (6.4-8.2)
[2019-03-18 06:05] LABS: IMMATURE GRANULOCYTES 0.6 % (0-5)
[2019-03-18 06:22] LABS: HEMATOCRIT 25.3 % (42.0-54.0); HEMOGLOBIN 8.9 g/dL (13.5-17.5); MCH 27.4 pg (26.0-34.0); MCHC 35.2 g/dL (31.0-37.0); MCV 77.8 fL (80.0-100.0); RBC 3.25 10x6/uL (4.20-6.10); RDW 16.6 % (11.5-14.5)
[2019-03-18 06:29] LABS: PLATELET COUNT 132 10x3/uL (130-400); WBC 3.6 10x3/uL (4.8-10.8)
--- NOTE | 2019-03-18 07:36 | NUR ---
AWAKE AND ALERT TO SELF ONLY WITH NOTED CONFUSION. RESP EVEN AND UNLABORE WITH NO DISTRESS NOTED. CAN EXPRESS NEEDS AND WANTS. NO C/O NOTED OR VOICED. HAS ISAIAS ALARM IN USE AND WORKING PROPERLY. CAN TURN AND REPOSITION SELF AB CHELSI. ASSESSMENT COMPLETED. C/L IN REACH AT BEDSIDE.
--- NOTE | 2019-03-18 08:03 | NUR ---
REFUSED TO LET ZIPPER SEWING MACHINE OPERATOR TAKE VITALS SIGNS ON THIS AM. THIS NURSE ATTEMPTED TO TAKE VITALS WELL BUT STILL REFUSED.
[2019-03-18 08:53] LABS: ANISOCYTOSIS OCC; EOSINOPHILS 8 % (0-7); LYMPHOCYTES 12 % (15-50); MONOCYTES 8 % (2-11); NEUTROPHILS 72 % (40-80); PLATELET ESTIMATE NORMAL; SCHISTOCYTES OCC
--- NOTE | 2019-03-18 09:43 | NUR ---
CALLED WAS PLACED TO HOUSE SUPERVISER AT THIS TIME ABOUT PLACING PT IN ISAIAS BED D/T HIM CONTINUOUSLY CLIMBING OUT OF BED OVER RAILS AND REFUSING TO LET STAFF ASSIST HIM AND ALSO REFUSING TO WEAR NON-SKID SOCKS. RETIREMENT/ TOÑO PSYCH CONSULT NEEDED. PT IS VERY AGGRESSIVE TOWARD AND STAFF. HOUSE SUPERVISED STATED THAT SHE WILL CALL ME BACK ONCE SHE SPEAKS WITH NURSING MANAGEMENT. HAS A FALL RISK OF 4. AND C/L IN REACH AT BEDSIDE.
--- NOTE | 2019-03-18 11:00 | NUR ---
DAUGHTER ARRIVED TO FACILITY AT THIS TIME THIS NURSE TRY TO GIVEN MEDICATION BUT PT REFUSED AND THEN DAUGHTER TRIED WELL BUT WITH NO SUCCESS. FAMILY AND C/L REACH AT BEDSIDE.
--- NOTE | 2019-03-18 12:21 | NUR ---
SCD'S REFUSED PER HILL/PRASHANT
[2019-03-18 13:41] VITALS: Ht 193 cm; Wt 73.1 kg
--- NOTE | 2019-03-18 14:16 | NUR ---
I have reviewed this patient and I concur with the Shift Assessment completed by the Licensed Practical Nurse today this shift.
--- NOTE | 2019-03-18 14:54 | NUR ---
PT PLACED IN ISAIAS BED AT THIS TIME. AT BEDSIDE
--- NOTE | 2019-03-19 08:00 | NUR ---
PT RESTING IN ISAIAS BED, PT CALM AND ALLOWED NURSE TO PERFORM ASSESSMENT. PT REFUSED PO MEDICATIONS. PT WOULD NOT ALLOW GLUING MACHINE OPERATOR ELECTRONIC TO OBTIAN BP BUT ALLOWED GLUING MACHINE OPERATOR ELECTRONIC TO TAKE PULSE OX. PT STATES HE IS NOT HUNGRY AT THIS TIME. AT BEDSIDE. WILL CONT TO FOLLOW POC
--- NOTE | 2019-03-19 08:20 | NUR ---
PT UPSET THAT PT HAS "BEEN WEARING THE SAME SHIRT X3DAYS". PT ALLOWED NURSE TO REMOVE HIS SHIRT AND WASH HIS ARMS, TRUNK, AND LEGS AND PLACE A CLEAN SHIRT BACK ON HIM. PT WOULD NOT ALLOW NURSE TO CHANGE HIS UNDERWEAR. PT WAS NOT YELLING OR AGITATED BUT SIMPLY STATED "NO" WHEN ASKED IF HE COULD TAKE OFF THE OLD ONES. PT UPSET AT PT AND BEGAN TO FUSS AT PT THAT HIS UNDERWEAR WAS OLD AND HE NEEDED TO CHANGE THEM. PT ONCE AGAIN TOLD HIS "NO". ADVISED PT THAT WE WOULD TRY AGAIN LATER. PT NOT HAPPY AND WANTS NURSE TO GIVE PT SOMETHING TO MAKE HIM COMPLY. ADVISED THAT IF THE PT SAYS NO THEN IT MEANS NO AND NURSE CANNOT GIVE ANY MEDICATIONS TO FORCE THE PT TO CHANGE HIS UNDERWEAR. PT RESTING IN ISAIAS BED AND CALM. WILL CONT TO FOLLOW POC
--- NOTE | 2019-03-19 12:10 | NUR ---
PT RESTING IN ISAIAS BED. PT ALLOWED NURSE TO OBTAIN FSBS. PT ALLOWED NURSE TO HAND HIM HIS BURGER AND HE ATE IT IN BED. AT BEDSIDE. WILL CONT TO FOLLOW POC
[2019-03-19 12:45] VITALS: BP 109/44
--- NOTE | 2019-03-19 15:30 | CN ---
PATIENT NAME:CARLOS JOY SR MEDICAL RECORD: [id number] : 41 LOCATION:D.M2 D.2105 ADMIT DATE: 03/17/19 ACCOUNT: [id number] CONSULTING PHYSICIAN: BENEDICT ADKINS MD REFERRING PHYSICIAN: NEDA WATERMAN MD DATE OF CONSULTATION: 03/18/2019 PSYCHIATRIC CONSULTATION IDENTIFYING DATA: The patient is 73 years old and he is admitted to the hospital on a voluntary basis secondary to renal failure. CHIEF COMPLAINT: Confusion. HISTORY OF PRESENT ILLNESS: The patient is a very poor historian. I am not clear if he has been on dialysis sort, this is a relatively new process. Nevertheless, he is severely impaired cognitively. He denies that he would actively seek to harm himself or others. ASSESSMENT: Major neurocognitive disorder of the Alzheimer's type. PLAN: At this time, the patient's dementia is advanced. I do not think there is much in the way of a therapeutic assistance I can provide to him. I would recommend the use of p.r.n. Evelin and/or p.r.n. Ativan to assist with any behavior problems. Given his mental and physical condition, it would be appropriate to refer him to hospice or comfort care measures. TRANSINT:[id number] Voice Confirmation ID: [id number] DOCUMENT ID: [id number] BENEDICT ADKINS MD at 1530 CC: [id number] DICTATION DATE: 03/18/19 1245 MAGISTRATE JUDGE: 03/18/19 1318 ADM [address] [place] [address] [place] [address]
[2019-03-19 16:45] VITALS: BP 127/57
--- NOTE | 2019-03-19 17:14 | MORECARE ---
CASE MANAGEMENT DISCHARGE SUMMARY PATIENT: CARLOS JOY UNIT: [id number] ADM DATE: 03/17/19 AGE: 73 : 43 SEX: M ROOM/BED: D.2104 AUTHOR: MARTY,DOC PHYSICIAN: REFERRING PHYSICIAN: NEDA WATERMAN MD DATE OF SERVICE: 03/19/19 Discharge Plan Patient Name: CARLOS JOY Facility: [facility]:[place] : 1945 Planned Disposition: Prison Facility Anticipated Discharge Date: 03/21/19 Discharge Date: Expected LOS: 4 Initial Reviewer: [email or web address] Initial Review Date: 03/17/2019 Generated: 03/19/19 6:13 pm Comments DCP- Discharge Planning Updated by [email or web address]: Monster Ramirez on 03/19/19 4:[address] Patient Name: CARLOS JOY Admission Status: ER Accout number: [id number] Admission Date: 03-17-2019 : 1945 Admission Diagnosis:COUGH Attending: NEDA WATERMAN Current LOS: 2 Anticipated DC Date: 03-21-2019 Planned Disposition: Prison Facility Primary Insurance: MEDICARE A & B PLANNED EXTERNAL PROVIDER: [facility] OR [facility], MEDICARE SKILLED BED Discharge Planning Comments: CM SPOKE TO DR. GUSTAFSON WHO HAS TALKED TO PT'S SPOUSE, SHE WILL NOW PLACE PT INTO NURSING FACILITY. CM MET WITH PT'S SPOUSE TO DISCUSS DISCHARGE PLANNING AND NEEDS. PT'S SPOUSE REPORTS PT HAS BEEN LIVING AT HOME DEPENDENTLY WITH HER BUT SHE IS NOT ABLE TO CARE FOR PT ANY LONGER. PT GRABS HER ARM AND WILL NOT LET GO AND REFUSES TO GO TO DIALYSIS. PT HAS DEMENTIA. SPOUSE WANTS PT PLACED FOR NATIONAL ACCOUNT DIRECTOR CARE AT [facility] OR [facility] IN [place]. CHOICE SIGNED. IMPORTANT MESSAGE FROM MEDICARE PROVIDED AND EXPLAINED. CM COMPLETED DEXTER WITH PT'S SPOUSE'S ASSISTANCE. SIGNATURES OBTAINED FROM MARY LOU VILLASENOR. CM TO FAX [facility] TO [facility] SOON POSSIBLE FOR DEXTER / STATE CLEARANCE TO ENTER SENIOR LIVING FACILITY. CM TO FAX REFERRALS TO [facility] AND [facility] FOR SKILLED / NATIONAL ACCOUNT DIRECTOR CARE SOON POSSIBLE. Product Demonstrator: Monster Ramirez DCPIA - Discharge Planning Initial Assessment Updated by [email or web address]: Monster Ramirez on 03/19/19 5:03 pm * Is the patient Alert and Oriented? No * How many steps to enter\exit or inside your home? * PCP DR. SOLIS [place] * Pharmacy [facility] [facility] * Preadmission Environment Home with Family * ADLs Partial Dependent * Partial ADLs (Assistance needed) Medication Management * Equipment Rolling Walker Wheelchair * Other Equipment NO MEDICAL EQUIPMENT PROVIDER PREFERENCE * List name and contact numbers for known caregivers / representatives who currently or will assist patient after discharge: WAYNE JOY, SPOUSE, * Verbal permission to speak to the caregivers and representatives has been obtained from the patient. N/A * Community resources currently utilized Other * Please name any agencies selected above. OUTPATIENT DIALYSIS, [facility] IN [place], [facility], 1130AM * Additional services required to return to the preadmission environment? Yes * Can the patient safely return to the preadmission environment? No * Has this patient been hospitalized within the prior 30 days at any hospital? No Patient Name: CARLOS JOY Page [phone] at 1714 All edits/amendments must be made on the electronic document DICTATION DATE: 03/19/191712 INSURANCE ADMINISTRATIVE ASSISTANT: ISMAEL 03/19/191712 RPT#: [id number] DC DATE: STATUS: ADM IN [facility] [address] [place] [address] END OF REPORT
--- NOTE | 2019-03-19 18:16 | NUR ---
PT ALLOWED DIALYSIS NURSE TO DIALIZE PT IN ROOM, ONCE DIALYSIS WAS FINISHED PT WAS GIVEN HIS BEDSIDE TABLE WITH TRAY ON IT THROUGH ONE UNZIPPED SIDE AND PT SAT UP AND STARTED TO EAT HIS SUPPER. AT BEDSIDE. WILL CONT TO FOLLOW POC
--- NOTE | 2019-03-19 18:50 | NUR ---
PT CAME AND GOT NURSE AND BEGAN FUSSING THAT PT WAS DIRTY AND HASN'T BEEN CHANGED IN 3 DAYS. STATES," YOU NEED TO GIVE HIM SOMETHING BECAUSE HE HAS TO BE CHANGED." ADVISED THAT NURSE WOULD ATTEMPT TO GIVE PT A BATH BUT IF PT DOES NOT WANT A BATH THEN HE HAS THAT RIGHT. UPSET WITH NURSE AND STATES,"WELL I HAVE NOT COMPLAINED YET BUT YOU NEED TO CHANGE HIM." ASKED TO STEP OUT OF ROOM SINCE EARLIER HE BECAME INCREASINGLY AGGITATED WHEN SHE BEGAIN NAGGING HIM. WAS NOT HAPPY WITH REQUEST BUT SHE LEFT THE ROOM. PT ALLOWED NURSE AND INFORMATION TECHNOLOGY DIRECTOR TO PROVIDE A FULL BED BATH WITH LINEN CHANGE. PT ALLOWED NURSE TO CHANGE HIS UNDERWEAR WELL. PT CALM IN ISAIAS BED. WENT AND GOT PT AND LET HER KNOW THAT PT ALLOWED NURSE TO CLEAN HIM AND THAT HE HAD A BM WELL.
[2019-03-20 01:14] VITALS: BP 99/47
--- NOTE | 2019-03-20 06:59 | MORECARE ---
CASE MANAGEMENT DISCHARGE SUMMARY PATIENT: CARLOS JOY UNIT: [id number] ADM DATE: 03/17/19 AGE: 73 : 43 SEX: M ROOM/BED: D.2108 AUTHOR: MARTY,DOC PHYSICIAN: REFERRING PHYSICIAN: NEDA WATERMAN MD DATE OF SERVICE: 03/20/19 Discharge Plan Patient Name: CARLOS JOY Facility: [facility]:[place] : 1945 Planned Disposition: Jail Facility Anticipated Discharge Date: 03/21/19 Discharge Date: Expected LOS: 4 Initial Reviewer: [id number] Initial Review Date: 03/17/2019 Generated: 03/20/19 7:59 am Comments DCP- Discharge Planning Updated by [email or web address]: Monster Ramirez on 03/19/19 4:[address] Patient Name: CARLOS JOY Admission Status: ER Accout number: [id number] Admission Date: 03-17-2019 : 1945 Admission Diagnosis:COUGH Attending: NEDA WATERMAN Current LOS: 2 Anticipated DC Date: 03-21-2019 Planned Disposition: Jail Facility Primary Insurance: MEDICARE A & B PLANNED EXTERNAL PROVIDER: [facility] OR [facility], MEDICARE SKILLED BED Discharge Planning Comments: CM SPOKE TO DR. GUSTAFSON WHO HAS TALKED TO PT'S SPOUSE, SHE WILL NOW PLACE PT INTO NURSING FACILITY. CM MET WITH PT'S SPOUSE TO DISCUSS DISCHARGE PLANNING AND NEEDS. PT'S SPOUSE REPORTS PT HAS BEEN LIVING AT HOME DEPENDENTLY WITH HER BUT SHE IS NOT ABLE TO CARE FOR PT ANY LONGER. PT GRABS HER ARM AND WILL NOT LET GO AND REFUSES TO GO TO DIALYSIS. PT HAS DEMENTIA. SPOUSE WANTS PT PLACED FOR STATOR WINDER CARE AT [facility] OR [facility] IN [place]. CHOICE SIGNED. IMPORTANT MESSAGE FROM MEDICARE PROVIDED AND EXPLAINED. CM COMPLETED DEXTER WITH PT'S SPOUSE'S ASSISTANCE. SIGNATURES OBTAINED FROM MARY LOU VILLASENOR. CM TO FAX DEXTER TO [facility] SOON POSSIBLE FOR DEXTER / STATE CLEARANCE TO ENTER SHELTER FACILITY. CM TO FAX REFERRALS TO [facility] AND [facility] FOR SKILLED / STATOR WINDER CARE SOON POSSIBLE. Aemt: Monster Ramirez DCPIA - Discharge Planning Initial Assessment Updated by [email or web address]: Monster Ramirez on 03/19/19 5:03 pm * Is the patient Alert and Oriented? No * How many steps to enter\exit or inside your home? * PCP DR. SOLIS [place] * Pharmacy [facility] * Preadmission Environment Home with Family * ADLs Partial Dependent * Partial ADLs (Assistance needed) Medication Management * Equipment Rolling Walker Wheelchair * Other Equipment NO MEDICAL EQUIPMENT PROVIDER PREFERENCE * List name and contact numbers for known caregivers / representatives who currently or will assist patient after discharge: WAYNE JOY, SPOUSE, * Verbal permission to speak to the caregivers and representatives has been obtained from the patient. N/A * Community resources currently utilized Other * Please name any agencies selected above. OUTPATIENT DIALYSIS, [facility] [place], [facility], 1130AM * Additional services required to return to the preadmission environment? Yes * Can the patient safely return to the preadmission environment? No * Has this patient been hospitalized within the prior 30 days at any hospital? No External Providers External Provider: [facility] Next Contact Date: 03/20/2019 Service Request Date: Service Type: Resolution: Reviewer: Comments: External Provider: [facility] Next Contact Date: 03/20/2019 Service Request Date: Service Type: Resolution: Reviewer: Comments: [facility] Next Contact Date: 03/20/2019 Service Request Date: Service Type: Resolution: Reviewer: Comments: Coverage Notice Reviewer: [id number] Argenis Ramirez Notice Issued Date-Time: 03/19/2019 13:30 Notice Type: IM Discharge Notice Notice Delivered To: Family Member Relationship to Patient: Spouse Motor Coach Driver Name: WAYNE JOY Delivery Method: HAND - Hand Delivered Adriane Days: Prior Verbal Notification: Recipient Understood Notice: Yes Recipient Signature: Yes Med Rec Note Co-signed by Attending: Coverage Notice Comment: Reviewer: [id number] Ramirez Notice Issued Date-Time: 03/20/2019 13:30 Notice Type: Patient Choice Letter Notice Delivered To: Family Member Relationship to Patient: Spouse Motor Coach Driver Name: WAYNE JOY Delivery Method: HAND - Hand Delivered Adriane Days: Prior Verbal Notification: Recipient Understood Notice: Yes Recipient Signature: Yes Med Rec Note Co-signed by Attending: Coverage Notice Comment: [facility] Last DP export: 03/19/19 4:14 p Patient Name: CARLOS JOY Page 32226 at 0659 All edits/amendments must be made on the electronic document DICTATION DATE: 03/20/19658 CABIN CLEANER: ISMAEL 03/20/19658 RPT#: [id number] DC DATE: STATUS: ADM IN [facility] [address] [place] [address] END OF REPORT
--- NOTE | 2019-03-20 08:15 | NUR ---
PATIENT IS SITTING UP IN BED , EATTING WARM BREAKFAST. AT BEDISDE. I SET HIM UP FOR BREAKFAST AND HE FEEDS HIMSELF. DENIES ANY OTHER NEEDS AT THIS TIME.
--- NOTE | 2019-03-20 08:20 | MORECARE ---
CASE MANAGEMENT DISCHARGE SUMMARY PATIENT: CARLOS JOY UNIT: [id number] ADM DATE: 03/17/19 AGE: 73 : 43 SEX: M ROOM/BED: D.2105 AUTHOR: MARTYDOC PHYSICIAN: REFERRING PHYSICIAN: NEDA WATERMAN MD DATE OF SERVICE: 03/20/19 Discharge Plan Patient Name: CARLOS JOY Facility: [facility]:[place] : 1945 Planned Disposition: Nursing Facility [facility] Anticipated Discharge Date: 03/21/19 Discharge Date: Expected LOS: 4 Initial Reviewer: [id number] Initial Review Date: 03/17/2019 Generated: 03/20/19 9:20 am Comments DCP- Discharge Planning Updated by [id number]: Monster Ramirez on 03/20/19 7:[address] Patient Name: CARLOS JOY Encounter No: [id number] : 1945 Primary Insurance: MEDICARE A & B Anticipated DC Date: 03-21-2019 Planned Disposition: Usp Facility External Planned Provider: [facility], HEMATOLOGY ONCOLOGY CONSULTANT CARE MEDICAID BED DCP follow-up note: CM FAXED DEXTER ASSESSMENT WITH SUPPORTING MEDICAL DOCUMENTS TO [facility] [phone]. CM FA[facility]ED REFERRALS TO [facility], [facility], , FOR HEMATOLOGY ONCOLOGY CONSULTANT CARE. CM WAITING DEXTER SCREENING DETERMINATION WELL ADMISSION DETERMINATIONS FOR HEMATOLOGY ONCOLOGY CONSULTANT CARE FROM [facility]. Psychiatry Teacher: Monster Ramirez DCP- Discharge Planning Updated by [id number]: Monster Ramirez on 03/19/19 4:[address] Patient Name: CARLOS JOY Admission Status: ER Accout number: [id number] Admission Date: 03-17-2019 : 1945 Admission Diagnosis:COUGH Attending: NEDA WATERMAN Current LOS: 2 Anticipated DC Date: 03-21-2019 Planned Disposition: Usp Facility Primary Insurance: MEDICARE A & B PLANNED EXTERNAL PROVIDER: [facility], MEDICARE SKILLED BED Discharge Planning Comments: CM SPOKE TO DR. GUSTAFSON WHO HAS TALKED TO PT'S SPOUSE, SHE WILL NOW PLACE PT INTO NURSING FACILITY. CM MET WITH PT'S SPOUSE TO DISCUSS DISCHARGE PLANNING AND NEEDS. PT'S SPOUSE REPORTS PT HAS BEEN LIVING AT HOME DEPENDENTLY WITH HER BUT SHE IS NOT ABLE TO CARE FOR PT ANY LONGER. PT GRABS HER ARM AND WILL NOT LET GO AND REFUSES TO GO TO DIALYSIS. PT HAS DEMENTIA. SPOUSE WANTS PT PLACED FOR HEMATOLOGY ONCOLOGY CONSULTANT CARE AT [facility] OR [facility] IN [place]. CHOICE SIGNED. IMPORTANT MESSAGE FROM MEDICARE PROVIDED AND EXPLAINED. CM COMPLETED DEXTER WITH PT'S SPOUSE'S ASSISTANCE. SIGNATURES OBTAINED FROM MARY LOU VILLASENOR. CM TO FAX DEXTER TO [facility] SOON POSSIBLE FOR DEXTER / STATE CLEARANCE TO ENTER PENITENTIARY FACILITY. CM TO FAX REFERRALS TO [facility] AND [facility] FOR SKILLED / CORRECTION CARE SOON POSSIBLE. Psychiatry Teacher: Monster Ramirez DCPIA - Discharge Planning Initial Assessment Updated by [email or web address]: Monster Ramirez on 03/19/19 5:03 pm * Is the patient Alert and Oriented? No * How many steps to enter\exit or inside your home? * PCP DR. SOLIS [place] * Pharmacy [facility] * Preadmission Environment Home with Family * ADLs Partial Dependent * Partial ADLs (Assistance needed) Medication Management * Equipment Rolling Walker Wheelchair * Other Equipment NO MEDICAL EQUIPMENT PROVIDER PREFERENCE * List name and contact numbers for known caregivers / representatives who currently or will assist patient after discharge: WAYNE JOY, SPOUSE, * Verbal permission to speak to the caregivers and representatives has been obtained from the patient. N/A * Community resources currently utilized Other * Please name any agencies selected above. OUTPATIENT DIALYSIS, [facility] [place], [facility], 1130AM * Additional services required to return to the preadmission environment? Yes * Can the patient safely return to the preadmission environment? No * Has this patient been hospitalized within the prior 30 days at any hospital? No Coverage Notice Reviewer: [id number] - Monster Ramirez Notice Issued Date-Time: 03/19/2019 13:30 Notice Type: IM Discharge Notice Notice Delivered To: Family Member Relationship to Patient: Spouse Photographic Specialist Name: WAYNE JOY Delivery Method: HAND - Hand Delivered Adriane Days: Prior Verbal Notification: Recipient Understood Notice: Yes Recipient Signature: Yes Med Rec Note Co-signed by Attending: Coverage Notice Comment: Reviewer: [id number] - Monster Ramirez Notice Issued Date-Time: 03/20/2019 13:30 Notice Type: Patient Choice Letter Notice Delivered To: Family Member Relationship to Patient: Spouse Photographic Specialist Name: WAYNE JOY Delivery Method: HAND - Hand Delivered Adriane Days: Prior Verbal Notification: Recipient Understood Notice: Yes Recipient Signature: Yes Med Rec Note Co-signed by Attending: Coverage Notice Comment: [facility] Last DP export: 03/20/19 5:59 a Patient Name: CARLOS JOY Page 99858 at 0820 All edits/amendments must be made on the electronic document DICTATION DATE: 03/20/19819 SPINNER CONCRETE PIPE: ISMAEL 03/20/19819 RPT#: [id number] DC DATE: STATUS: ADM IN [facility] [address] [place] [address] END OF REPORT
[2019-03-20 08:47] VITALS: BP 114/49
--- NOTE | 2019-03-20 11:06 | NUR ---
Nutrition Follow-up: Pt/ sleeping on multiple attempts to visit. Chart reviewed. Noted pt was up eating breakfast this AM. Diet: Renal ADA, Double Portions, Nepro with meals PO intake: 25% avg yesterday per chart Wt: 170# (stated wt on 03/17 was 230#; will monitor) Last BM: 03/19 Labs reviewed Meds reviewed Continue current diet as tolerated. Monitor PO intake & wt. RD following.
[2019-03-20 12:30] VITALS: BP 122/56
--- NOTE | 2019-03-20 13:18 | MORECARE ---
CASE MANAGEMENT DISCHARGE SUMMARY PATIENT: CARLOS JOY UNIT: [id number] ADM DATE: 03/17/19 AGE: 73 : 43 SEX: M ROOM/BED: D.2100 AUTHOR: MARTY,DOC PHYSICIAN: REFERRING PHYSICIAN: NEDA WATERMAN MD DATE OF SERVICE: 03/20/19 Discharge Plan Patient Name: CARLOS JOY Facility: [facility]:[place] : 1945 Planned Disposition: Nursing Facility [facility] Cert Anticipated Discharge Date: 03/21/19 Discharge Date: Expected LOS: 4 Initial Reviewer: [id number] Initial Review Date: 03/17/2019 Generated: 03/20/19 2:18 pm Comments DCP- Discharge Planning Updated by [id number]: Mosnter Ramirez on 03/20/19 12:[address] Patient Name: CARLOS JOY Encounter No: [id number] : 1945 Primary Insurance: MEDICARE A & B Anticipated DC Date: 03-21-2019 Planned Disposition: Nursing Facility [facility] Cert External Planned Provider: [facility], GALLERY ASSISTANT CARE MEDICAID BED DCP follow-up note: CM RECEIVED DEXTER DETERMINATION, PT IS PASRR EXEMPT AND MAY ENTER PRISON HOME WHEN ACCEPTED. CM RECEIVED CALL FROM [facility], , THEY ARE CALLING PT'S SPOUSE TO DISCUSS RESIDENTIAL CARE AND ARE CONCERNED THAT PT MAY REFUSE DIALYSIS AND PT'S SPOUSE IS NOT WANTING HOSPICE. [facility] WILL CALL CM WHEN ADMISSION DETERMINATION IS MADE. CM SPOKE TO [facility], , THEY ARE CONSIDERING PT FOR GALLERY ASSISTANT CARE. DEXTER APPROVED. CM WAITING ADMISSION DETERMINATIONS FOR RESIDENTIAL CARE FROM [facility]. [place]: Monster Ramirez DCP- Discharge Planning Updated by [email or web address]: Monster Ramirez on 03/20/19 7:[address] Patient Name: CARLOS JOY Encounter No: [id number] : 1945 Primary Insurance: MEDICARE A & B Anticipated DC Date: 03-21-2019 Planned Disposition: Retirement Facility External Planned Provider: [facility] OR [facility], GALLERY ASSISTANT CARE MEDICAID BED DCP follow-up note: CM FA[place]ED [facility] ASSESS[place] WITH SUPPORTING MEDICAL DOCUMENTS [place] [facility] [phone]. CM FAXED REFERRALS TO [facility], AND [facility], , FOR GALLERY ASSISTANT CARE. CM WAITING DEXTER SCREENING DETERMINATION WELL ADMISSION DETERMINATIONS FOR GALLERY ASSISTANT CARE FROM [facility] AND [facility]. [place]: Monster Ramirez DCP- Discharge Planning Updated by [id number]: Monster Ramirez on 03/19/19 4:[address] Patient Name: CARLOS JOY Admission Status: ER Accout number: [id number] Admission Date: 03-17-2019 : 1945 Admission Diagnosis:COUGH Attending: NEDA WATERMAN Current LOS: 2 Anticipated DC Date: 03-21-2019 Planned Disposition: Retirement Facility Primary Insurance: MEDICARE A & B PLANNED EXTERNAL PROVIDER: [facility] OR [facility], MEDICARE SKILLED BED Discharge Planning Comments: CM SPOKE TO DR. GUSTAFSON WHO HAS TALKED TO PT'S SPOUSE, SHE WILL NOW PLACE PT INTO NURSING FACILITY. CM MET WITH PT'S SPOUSE TO DISCUSS DISCHARGE PLANNING AND NEEDS. PT'S SPOUSE REPORTS PT HAS BEEN LIVING AT HOME DEPENDENTLY WITH HER BUT SHE IS NOT ABLE TO CARE FOR PT ANY LONGER. PT GRABS HER ARM AND WILL NOT LET GO AND REFUSES TO GO TO DIALYSIS. PT HAS DEMENTIA. SPOUSE WANTS PT PLACED FOR RESIDENTIAL CARE AT [facility] OR [facility] IN [place]. CHOICE SIGNED. IMPORTANT MESSAGE FROM MEDICARE PROVIDED AND EXPLAINED. CM COMPLETED DEXTER WITH PT'S SPOUSE'S ASSISTANCE. SIGNATURES OBTAINED FROM MARY LOU VILLASENOR. CM TO [facility]X [facility] SOON POSSIBLE FOR DEXTER / STATE CLEARANCE TO ENTER PRISON FACILITY. CM TO FAX REFERRALS TO [facility] AND [facility] FOR SKILLED / RESIDENTIAL CARE SOON POSSIBLE. [place]: Monster Ramirez DCPIA - Discharge Planning Initial Assessment Updated by [email or web address]: Monster Ramirez on 03/19/19 5:03 pm * Is the patient Alert and Oriented? No * How many steps to enter\exit or inside your home? * PCP ALYSIA MOMIN * Pharmacy [facility] * Preadmission Environment Home with Family * ADLs Partial Dependent * Partial ADLs (Assistance needed) Medication Management * Equipment Rolling Walker Wheelchair * Other Equipment NO MEDICAL EQUIPMENT PROVIDER PREFERENCE * List name and contact numbers for known caregivers / representatives who currently or will assist patient after discharge: WAYNE JOY, SPOUSE, * Verbal permission to speak to the caregivers and representatives has been obtained from the patient. N/A * Community resources currently utilized Other * Please name any agencies selected above. OUTPATIENT DIALYSIS, [facility] [place], [facility], 1130AM * Additional services required to return to the preadmission environment? Yes * Can the patient safely return to the preadmission environment? No * Has this patient been hospitalized within the prior 30 days at any hospital? No Coverage Notice Reviewer: ERIKA Ramirez Notice Issued Date-Time: 03/19/2019 13:30 Notice Type: IM Discharge Notice Notice Delivered To: Family Member Relationship to Patient: Spouse Rn Intern Name: WAYNE JOY Delivery Method: HAND - Hand Delivered Adriane Days: Prior Verbal Notification: Recipient Understood Notice: Yes Recipient Signature: Yes Med Rec Note Co-signed by Attending: Coverage Notice Comment: Reviewer: [id number] Ramirez Notice Issued Date-Time: 03/20/2019 13:30 Notice Type: Patient Choice Letter Notice Delivered To: Family Member Relationship to Patient: Spouse Rn Intern Name: WAYNE JOY Delivery Method: HAND - Hand Delivered Adriane Days: Prior Verbal Notification: Recipient Understood Notice: Yes Recipient Signature: Yes Med Rec Note Co-signed by Attending: Coverage Notice Comment: [facility] Last DP export: 03/20/19 7:20 a Patient Name: CARLOS JOY Page 70022 at 1318 All edits/amendments must be made on the electronic document DICTATION DATE: 03/20/191317 COTTON GINNER HELPER: ISMAEL 03/20/191317 RPT#: [id number] DC DATE: STATUS: ADM IN [facility] [address] [place] [address] END OF REPORT
[2019-03-20 16:40] VITALS: BP 111/49
--- NOTE | 2019-03-20 16:49 | MORECARE ---
CASE MANAGEMENT DISCHARGE SUMMARY PATIENT: CARLOS JOY UNIT: [id number] ADM DATE: 03/17/19 AGE: 73 : 43 SEX: M ROOM/BED: D.2109 AUTHOR: MARTY,DOC PHYSICIAN: REFERRING PHYSICIAN: NEDA WATERMAN MD DATE OF SERVICE: 03/20/19 Discharge Plan Patient Name: CARLOS JOY Facility: [facility]:[place] : 1945 Planned Disposition: Nursing Facility [facility] Cert Anticipated Discharge Date: 03/21/19 Discharge Date: Expected LOS: 4 Initial Reviewer: [id number] Initial Review Date: 03/17/2019 Generated: 03/20/19 5:49 pm Comments DCP- Discharge Planning Updated by [id number]: Monster Ramirez on 03/20/19 3:[address] Patient Name: CARLOS JOY Encounter No: [id number] : 1945 Primary Insurance: MEDICARE A & B Anticipated DC Date: 03-21-2019 Planned Disposition: Nursing Facility [facility] Cert External Planned Provider: [facility] OR [facility], SHELTER CARE MEDICAID BED DCP follow-up note: CM RECEIVED CALL FROM [facility], , THEY ARE FAXING A FORM FOR THE DOCTOR TO COMPLETE AND SIGN REGARDING "CAPACITY VERIFICATION BY PHYSICIAN" REGARDING PATIENT. THIS WILL NEED TO BE COMPLETED AND RETURN. [facility] WAITING ON PT'S TO CALL THEM BACK TO DISCUSS ADMISSION. CM NOTIFIED PT'S TO CALL [facility]. DEXTER APPROVED. CM WAITING ADMISSION DETERMINATIONS FOR ARCHIVES TECHNICIAN CARE FROM [facility] AND [facility]. CM WAITING "CAPACITY VERIFICATION BY PHYSICIAN" FAX FOR PHYSICIAN TO COMPLETE FOR CM TO FAX BACK TO [facility]. Clinical Haematologist: Monster Ramirez DCP- Discharge Planning Updated by [id number]: Monster Ramirez on 03/20/19 12:[address] Patient Name: CARLOS JOY Encounter No: [id number] : 1945 Primary Insurance: MEDICARE A & B Anticipated DC Date: 03-21-2019 Planned Disposition: Nursing Facility [facility] Cert External Planned Provider: [facility] OR [facility], ARCHIVES TECHNICIAN CARE MEDICAID BED DCP follow-up note: CM RECEIVED DEXTER DETERMINATION, PT IS PASRR EXEMPT AND MAY ENTER INTERMEDIATE HOME WHEN ACCEPTED. CM RECEIVED CALL FROM JANES OF [facility], , THEY ARE CALLING PT'S SPOUSE TO DISCUSS ARCHIVES TECHNICIAN CARE AND ARE CONCERNED THAT PT MAY REFUSE DIALYSIS AND PT'S SPOUSE IS NOT WANTING HOSPICE. [facility] WILL CALL CM WHEN ADMISSION DETERMINATION IS MADE. CM SPOKE TO CLARE OF [facility], , THEY ARE CONSIDERING PT FOR SHELTER CARE. DEXTER APPROVED. CM WAITING ADMISSION DETERMINATIONS FOR ARCHIVES TECHNICIAN CARE FROM [facility] AND [facility]. Clinical Haematologist: Monster Ramirez DCP- Discharge Planning Updated by [id number]: Monster Ramirez on 03/20/19 7:[address] Patient Name: CARLOS JOY Encounter No: [id number] : 1945 Primary Insurance: MEDICARE A & B Anticipated DC Date: 03-21-2019 Planned Disposition: Residential Facility External Planned Provider: [facility] OR [facility], SHELTER CARE MEDICAID BED DCP follow-up note: CM FAXED DEXTER ASSESSMENT WITH SUPPORTING MEDICAL DOCUMENTS TO [facility] [phone]. CM FAXED REFERRALS TO [facility], AND [facility], , FOR SHELTER CARE. CM WAITING DEXTER SCREENING DETERMINATION WELL ADMISSION DETERMINATIONS FOR ARCHIVES TECHNICIAN CARE FROM [facility] AND [facility]. Clinical Haematologist: Monster Ramirez DCP- Discharge Planning Updated by [id number]: Monster Ramirez on 03/19/19 4:[address] Patient Name: CARLOS JOY Admission Status: ER Accout number: [id number] Admission Date: 03-17-2019 : 1945 Admission Diagnosis:COUGH Attending: NEDA WATERMAN Current LOS: 2 Anticipated DC Date: 03-21-2019 Planned Disposition: Residential Facility Primary Insurance: MEDICARE A & B PLANNED EXTERNAL PROVIDER: [facility] OR [facility], MEDICARE SKILLED BED Discharge Planning Comments: CM SPOKE TO DR. GUSTAFSON WHO HAS TALKED TO PT'S SPOUSE, SHE WILL NOW PLACE PT INTO NURSING FACILITY. CM MET WITH PT'S SPOUSE TO DISCUSS DISCHARGE PLANNING AND NEEDS. PT'S SPOUSE REPORTS PT HAS BEEN LIVING AT HOME DEPENDENTLY WITH HER BUT SHE IS NOT ABLE TO CARE FOR PT ANY LONGER. PT GRABS HER ARM AND WILL NOT LET GO AND REFUSES TO GO TO DIALYSIS. PT HAS DEMENTIA. SPOUSE WANTS PT PLACED FOR ARCHIVES TECHNICIAN CARE AT [facility] OR [facility] IN [place]. CHOICE SIGNED. IMPORTANT MESSAGE FROM MEDICARE PROVIDED AND EXPLAINED. CM COMPLETED DEXTER WITH PT'S SPOUSE'S ASSISTANCE. SIGNATURES OBTAINED FROM [facility] VILLASENOR. CM TO FAX DEXTER TO [facility] SOON POSSIBLE FOR DEXTER / STATE CLEARANCE TO ENTER INTERMEDIATE FACILITY. CM TO FAX REFERRALS TO [facility] AND [facility] FOR SKILLED / ARCHIVES TECHNICIAN CARE SOON POSSIBLE. Clinical Haematologist: Monster Ramirez DCPIA - Discharge Planning Initial Assessment Updated by [email or web address]: Monster Ramirez on 03/19/19 5:03 pm * Is the patient Alert and Oriented? No * How many steps to enter\\exit or inside your home? * PCP DR. SOLIS, [place] * Pharmacy [facility] [facility] OR [facility] * Preadmission Environment Home with Family * ADLs Partial Dependent * Partial ADLs (Assistance needed) Medication Management * Equipment Rolling Walker Wheelchair * Other Equipment NO MEDICAL EQUIPMENT PROVIDER PREFERENCE * List name and contact numbers for known caregivers / representatives who currently or will assist patient after discharge: WAYNE JOY, SPOUSE, * Verbal permission to speak to the caregivers and representatives has been obtained from the patient. N/A * Community resources currently utilized Other * Please name any agencies selected above. OUTPATIENT DIALYSIS, [facility] [place], [place], 1130AM * Additional services required to return to the preadmission environment? Yes * Can the patient safely return to the preadmission environment? No * Has this patient been hospitalized within the prior 30 days at any hospital? No Coverage Notice Reviewer: [id number] - Monster Ramirez Notice Issued Date-Time: 03/19/2019 13:30 Notice Type: IM Discharge Notice Notice Delivered To: Family Member Relationship to Patient: Spouse Debone Processing Supervisor Name: WAYNE JOY Delivery Method: HAND - Hand Delivered Adriane Days: Prior Verbal Notification: Recipient Understood Notice: Yes Recipient Signature: Yes Med Rec Note Co-signed by Attending: Coverage Notice Comment: Reviewer: [id number] - Monster Ramirez Notice Issued Date-Time: 03/20/2019 13:30 Notice Type: Patient Choice Letter Notice Delivered To: Family Member Relationship to Patient: Spouse Debone Processing Supervisor Name: WAYNE JOY Delivery Method: HAND - Hand Delivered Adriane Days: Prior Verbal Notification: Recipient Understood Notice: Yes Recipient Signature: Yes Med Rec Note Co-signed by Attending: Coverage Notice Comment: [facility] Last DP export: 03/20/19 12:18 p Patient Name: CARLOS JOY Page [phone] at 1649 All edits/amendments must be made on the electronic document DICTATION DATE: 03/20/191648 [employer]UM[employer] INSPECTOR: ISMALE 03/20/191648 RPT#: [id number] DC DATE: STATUS: ADM IN [facility] [address] [place] [address] END OF REPORT
--- NOTE | 2019-03-20 16:57 | NUR ---
PATIENT IS GETTING DIALYSIS AT THIS TIME. HE IS CALM RESTING IN THE IASIAS BED, DIALYSIS NURSE AT [facility]. HE HAS NOT REFUSED ANYTHING TODAY. HE HAS BEEN CALM AND RESPONDING APPROPRIATELY.
[2019-03-20 20:00] VITALS: BP 115/54
[2019-03-21 00:32] VITALS: BP 109/45
--- NOTE | 2019-03-21 07:17 | MORECARE ---
CASE MANAGEMENT DISCHARGE SUMMARY PATIENT: CARLOS JOY UNIT: [id number] ADM DATE: 03/17/19 AGE: 73 : 43 SEX: M ROOM/BED: D.2107 AUTHOR: MARTY,DOC PHYSICIAN: REFERRING PHYSICIAN: NEDA WATERMAN MD DATE OF SERVICE: 03/21/19 Discharge Plan Patient Name: CARLOS JOY Facility: [facility]:[place] : 1945 Planned Disposition: Nursing Facility [facility] Cert Anticipated Discharge Date: 03/21/19 Discharge Date: Expected LOS: 4 Initial Reviewer: [id number] Initial Review Date: 03/17/2019 Generated: 03/21/19 8:17 am Comments DCP- Discharge Planning Updated by [id number]: Monster Ramirez on 03/21/19 6:[address] Patient Name: CARLOS JOY Encounter No: [id number] : 1945 Primary Insurance: MEDICARE A & B Anticipated DC Date: 03-21-2019 Planned Disposition: Nursing Facility [facility] Cert External Planned Provider: [facility] OR [facility], FCI CARE MEDICAID BED DCP follow-up note: CM FAXED REFERRAL UPDATES TO INCLUDE DEXTER LETTER OF NON PASRR TO BOTH [facility] AND [facility]. DEXTER APPROVED. CM WAITING ADMISSION DETERMINATIONS FOR FCI CARE FROM [facility] AND [facility]. CM WAITING "CAPACITY VERIFICATION BY PHYSICIAN" FAX FOR PHYSICIAN TO COMPLETE FOR CM TO FAX BACK TO [facility]. Corrections Sergeant: Monster Ramirez DCP- Discharge Planning Updated by [id number]: Monster Ramirez on 03/20/19 3:[address] Patient Name: CARLOS JOY Encounter No: [id number] : 1945 Primary Insurance: MEDICARE A & B Anticipated DC Date: 03-21-2019 Planned Disposition: Nursing Facility [facility] Cert External Planned Provider: [facility] OR [facility], CROP GRAIN OR LIVESTOCK FARMER CARE MEDICAID BED DCP follow-up note: CM RECEIVED CALL FROM [facility], , THEY ARE FAXING A FORM FOR THE DOCTOR TO COMPLETE AND SIGN REGARDING "CAPACITY VERIFICATION BY PHYSICIAN" REGARDING PATIENT. THIS WILL NEED TO BE COMPLETED AND RETURN. [facility] WAITING ON PT'S TO CALL THEM BACK TO DISCUSS ADMISSION. CM NOTIFIED PT'S TO CALL [facility]. DEXTER APPROVED. CM WAITING ADMISSION DETERMINATIONS FOR CROP GRAIN OR LIVESTOCK FARMER CARE FROM [facility] AND [facility]. CM WAITING "CAPACITY VERIFICATION BY PHYSICIAN" FAX FOR PHYSICIAN TO COMPLETE FOR CM TO FAX BACK TO [facility]. Corrections Sergeant: Monster Ramirez DCP- Discharge Planning Updated by [id number]: Monster Ramirez on 03/20/19 12:[address] Patient Name: CARLOS JOY Encounter No: [id number] : 1945 Primary Insurance: MEDICARE A & B Anticipated DC Date: 03-21-2019 Planned Disposition: Nursing Facility [facility] External Planned Provider: [facility] OR [facility], FCI CARE MEDICAID BED DCP follow-up note: CM RECEIVED DEXTER DETERMINATION, PT IS PASRR EXEMPT AND MAY ENTER LONG-TERM HOME WHEN ACCEPTED. CM RECEIVED CALL FROM [facility] OF [facility], , THEY ARE CALLING PT'S SPOUSE TO DISCUSS CROP GRAIN OR LIVESTOCK FARMER CARE AND ARE CONCERNED THAT PT MAY REFUSE DIALYSIS AND PT'S SPOUSE IS NOT WANTING HOSPICE. [facility] WILL CALL CM WHEN ADMISSION DETERMINATION IS MADE. CM SPOKE TO CLARE OF [facility] AND [facility], , THEY ARE CONSIDERING PT FOR FCI CARE. DEXTER APPROVED. CM WAITING ADMISSION DETERMINATIONS FOR FCI CARE FROM [facility] AND [facility]. Corrections Sergeant: Monster Ramirez DCP- Discharge Planning Updated by [id number]: Monster Ramirez on 03/20/19 7:[address] Patient Name: CARLOS JOY Encounter No: [id number] : 1945 Primary Insurance: MEDICARE A & B Anticipated DC Date: 03-21-2019 Planned Disposition: Group Home Facility External Planned Provider: [facility] OR [facility], CROP GRAIN OR LIVESTOCK FARMER CARE MEDICAID BED DCP follow-up note: CM FAXED DEXTER ASSESSMENT WITH SUPPORTING MEDICAL DOCUMENTS TO [place] [phone]. CM FAXED REFERRALS TO [facility], AND [facility], , FOR CROP GRAIN OR LIVESTOCK FARMER CARE. CM WAITING DEXTER SCREENING DETERMINATION WELL ADMISSION DETERMINATIONS FOR FCI CARE FROM [facility]. Corrections Sergeant: Monster Ramirez DCP- Discharge Planning Updated by [id number]: Monster Ramirez on 03/19/19 4:[address] Patient Name: CARLOS JOY Admission Status: ER Accout number: [id number] Admission Date: 03-17-2019 : 1945 Admission Diagnosis:COUGH Attending: NEDA WATERMAN Current LOS: 2 Anticipated DC Date: 03-21-2019 Planned Disposition: Group Home Facility Primary Insurance: MEDICARE A & B PLANNED EXTERNAL PROVIDER: [facility] OR [facility], MEDICARE SKILLED BED Discharge Planning Comments: CM SPOKE TO DR. GUSTAFSON WHO HAS TALKED TO PT'S SPOUSE, SHE WILL NOW PLACE PT INTO NURSING FACILITY. CM MET WITH PT'S SPOUSE TO DISCUSS DISCHARGE PLANNING AND NEEDS. PT'S SPOUSE REPORTS PT HAS BEEN LIVING AT HOME DEPENDENTLY WITH HER BUT SHE IS NOT ABLE TO CARE FOR PT ANY LONGER. PT GRABS HER ARM AND WILL NOT LET GO AND REFUSES TO GO TO DIALYSIS. PT HAS DEMENTIA. SPOUSE WANTS PT PLACED FOR CROP GRAIN OR LIVESTOCK FARMER CARE AT [facility] OR [facility] IN [place]. CHOICE SIGNED. IMPORTANT MESSAGE FROM MEDICARE PROVIDED AND EXPLAINED. CM COMPLETED DEXTER WITH PT'S SPOUSE'S ASSISTANCE. SIGNATURES OBTAINED FROM MARY LOU VILLASENOR. CM TO FAX DEXTER TO [facility] SOON POSSIBLE FOR [place] / STATE CLEARANCE TO ENTER LONG-TERM FACILITY. CM TO FAX REFERRALS TO [facility] AND [facility] FOR SKILLED / CROP GRAIN OR LIVESTOCK FARMER CARE SOON POSSIBLE. Corrections Sergeant: Monster Ramirez DCPIA - Discharge Planning Initial Assessment Updated by [id number]: Monster Ramirez on 03/19/19 5:03 pm * Is the patient Alert and Oriented? No * How many steps to enter\\exit or inside your home? * PCP ALYSIA MOMIN * Pharmacy [facility] OR [facility] * Preadmission Environment Home with Family * ADLs Partial Dependent * Partial ADLs (Assistance needed) Medication Management * Equipment Rolling Walker Wheelchair * Other Equipment NO MEDICAL EQUIPMENT PROVIDER PREFERENCE * List name and contact numbers for known caregivers / representatives who currently or will assist patient after discharge: WAYNE JOY, SPOUSE, * Verbal permission to speak to the caregivers and representatives has been obtained from the patient. N/A * Community resources currently utilized Other * Please name any agencies selected above. OUTPATIENT DIALYSIS, [facility] [place], [facility], 1130AM * Additional services required to return to the preadmission environment? Yes * Can the patient safely return to the preadmission environment? No * Has this patient been hospitalized within the prior 30 days at any hospital? No Coverage Notice Reviewer: ERIKA Ramirez Notice Issued Date-Time: 03/19/2019 13:30 Notice Type: IM Discharge Notice Notice Delivered To: Family Member Relationship to Patient: Spouse Car Trimmer Name: WAYNE JOY Delivery Method: HAND - Hand Delivered Adriane Days: Prior Verbal Notification: Recipient Understood Notice: Yes Recipient Signature: Yes Med Rec Note Co-signed by Attending: Coverage Notice Comment: Reviewer: ERIKA Ramirez Notice Issued Date-Time: 03/20/2019 13:30 Notice Type: Patient Choice Letter Notice Delivered To: Family Member Relationship to Patient: Spouse Car Trimmer Name: WAYNE JOY Delivery Method: HAND - Hand Delivered Adriane Days: Prior Verbal Notification: Recipient Understood Notice: Yes Recipient Signature: Yes Med Rec Note Co-signed by Attending: Coverage Notice Comment: [facility] Last DP export: 03/20/19 3:50 p Patient Name: CARLOS JOY Page 76959 at 0717 All edits/amendments must be made on the electronic document DICTATION DATE: 03/21/19716 MUSIC PROFESSIONALS: ISMAEL 03/21/19716 RPT#: [id number] DC DATE: STATUS: ADM IN [facility] [address] [facility] [place] [address] END OF REPORT
--- NOTE | 2019-03-21 07:30 | NUR ---
RESTING WITH EYES CLOSED. RESP EVEN AND UNLABORED WITH 02 ON AT 2L N/C. GOMEZ PATENT AND DRAINING LIGHT YELLOW URINE. INCONT STOOL AND PT CLEANED. NO REQUESTS VOICED. WILL CONTINUE POC
[2019-03-21 08:50] VITALS: BP 119/59
--- NOTE | 2019-03-21 11:55 | NUR ---
REPORT CALLED TO ANGELIQUE CLIFFORD AT [facility]. [facility] CALLED TO TRANSPORT PT. ALL PERSONAL BELONGINGS PACKED AND SENT WITH PT. LEFT FLOOR VIA AMBULANCE GURNEY AND TRANSPORTED VIA [facility].
[2019-03-21 12:21] VITALS: BP 144/79
--- NOTE | 2019-03-21 13:50 | NUR ---
ASSISTED UP TO BEDSIDE CHAIR. WT BEARING GOOD AND WALKS WELL WITH WALKER WITH ONLY MINIMAL ASSIST. ISAIAS PAD PLACED IN CHAIR. AT BEDSIDE.
--- NOTE | 2019-03-21 14:04 | MORECARE ---
CASE MANAGEMENT DISCHARGE SUMMARY PATIENT: CARLOS JOY UNIT: [id number] ADM DATE: 03/17/19 AGE: 73 : 43 SEX: M ROOM/BED: D.2109 AUTHOR: MARTY,DOC PHYSICIAN: REFERRING PHYSICIAN: NEDA WATERMAN MD DATE OF SERVICE: 03/21/19 Discharge Plan Patient Name: CARLOS JOY Facility: [facility]:[place] : 1945 Planned Disposition: Nursing Facility [facility] Cert Anticipated Discharge Date: 03/21/19 Discharge Date: Expected LOS: 4 Initial Reviewer: [id number] Initial Review Date: 03/17/2019 Generated: 03/21/19 3:03 pm Comments DCP- Discharge Planning Updated by [email or web address]: Monster Ramirez on 03/21/19 1:[address] Patient Name: CARLOS JOY Encounter No: [id number] : 1945 Primary Insurance: MEDICARE A & B Anticipated DC Date: 03-21-2019 Planned Disposition: Nursing Facility [facility] Cert External Planned Provider: [facility] OR [facility], CARE HOME CARE MEDICAID BED DCP follow-up note: JANES AND HOLDEN OF [facility] ARRIVED, DELIVERED CAPACITY VERIFICATION FORM AND ASSESSED PT IN ROOM. CLARE OF [facility] ALSO EVALUATED PT AND MET WITH PT'S SPOUSE. CM SPOKE TO MARY LOU FORTUNE WHO COMPLETED CAPACITY FORM. CM FAXED CAPACITY FORM TO [facility]. BOTH FACILITIES INFORMED CM THAT PT MUST BE OUT OF RESTRAINT FOR AT LEAST 24 HOURS FOR PLACEMENT IN FACILITY. DEXTER APPROVED. CM WAITING ADMISSION DETERMINATIONS FOR LEAD NEURODIAGNOSTIC TECHNOLOGIST CARE FROM [facility] AND [facility]. PATIENT MUST BE OUT OF RESTRAINT FOR AT LEAST 24 HOURS FOR PLACEMENT IN RESIDENTIAL. Control Panel Tester: Monster Ramirez DCP- Discharge Planning Updated by [id number]: Monster Ramirez on 03/21/19 6:[address] Patient Name: CARLOS JOY Encounter No: [id number] : 1945 Primary Insurance: MEDICARE A & B Anticipated DC Date: 03-21-2019 Planned Disposition: Nursing Facility [facility] Cert External Planned Provider: [facility] OR [facility], CARE HOME CARE MEDICAID BED DCP follow-up note: CM FAXED REFERRAL UPDATES TO INCLUDE DEXTER LETTER OF NON PASRR TO BOTH [facility] AND [facility]. DEXTER APPROVED. CM WAITING ADMISSION DETERMINATIONS FOR LEAD NEURODIAGNOSTIC TECHNOLOGIST CARE FROM [facility] AND [facility]. CM WAITING "CAPACITY VERIFICATION BY PHYSICIAN" FAX FOR PHYSICIAN TO COMPLETE FOR CM TO FAX BACK TO [facility]. Control Panel Tester: Monster Ramirez DCP- Discharge Planning Updated by [email or web address]: Monster Ramirez on 03/20/19 3:[address] Patient Name: CARLOS JOY Encounter No: [id number] : 1945 Primary Insurance: MEDICARE A & B Anticipated DC Date: 03-21-2019 Planned Disposition: Nursing Facility [facility] Cert External Planned Provider: [facility] OR [facility], LEAD NEURODIAGNOSTIC TECHNOLOGIST CARE MEDICAID BED DCP follow-up note: CM RECEIVED CALL FROM summer [facility], , THEY ARE FAXING A FORM FOR THE DOCTOR TO COMPLETE AND SIGN REGARDING "CAPACITY VERIFICATION BY PHYSICIAN" REGARDING PATIENT. THIS WILL NEED TO BE COMPLETED AND RETURN. [facility] WAITING ON PT'S TO CALL THEM BACK TO DISCUSS ADMISSION. CM NOTIFIED PT'S TO CALL [facility]. DEXTER APPROVED. CM WAITING ADMISSION DETERMINATIONS FOR LEAD NEURODIAGNOSTIC TECHNOLOGIST CARE FROM [facility] AND [facility]. CM WAITING "CAPACITY VERIFICATION BY PHYSICIAN" FAX FOR PHYSICIAN TO COMPLETE FOR CM TO FAX BACK TO [facility]. Control Panel Tester: Monster Ramirez DCP- Discharge Planning Updated by [email or web address]: Monster Ramirez on 03/20/19 12:[address] Patient Name: CARLOS JOY Encounter No: [id number] : 1945 Primary Insurance: MEDICARE A & B Anticipated DC Date: 03-21-2019 Planned Disposition: Nursing Facility [facility] Cert External Planned Provider: [facility] OR [facility], LEAD NEURODIAGNOSTIC TECHNOLOGIST CARE MEDICAID BED DCP follow-up note: CM RECEIVED DEXTER DETERMINATION, PT IS PASRR EXEMPT AND MAY ENTER PENITENTIARY HOME WHEN ACCEPTED. CM RECEIVED CALL FROM summer [facility], , THEY ARE CALLING PT'S SPOUSE TO DISCUSS LEAD NEURODIAGNOSTIC TECHNOLOGIST CARE AND ARE CONCERNED THAT PT MAY REFUSE DIALYSIS AND PT'S SPOUSE IS NOT WANTING HOSPICE. SUMMER WILL CALL CM WHEN ADMISSION DETERMINATION IS MADE. CM SPOKE TO CLARE OF [facility], , THEY ARE CONSIDERING PT FOR LEAD NEURODIAGNOSTIC TECHNOLOGIST CARE. DEXTER APPROVED. CM WAITING ADMISSION DETERMINATIONS FOR CARE HOME CARE FROM [facility] AND [facility]. Control Panel Tester: Monster Ramirez DCP- Discharge Planning Updated by [id number]: Monster Ramirez on 03/20/19 7:[address] Patient Name: CARLOS JOY Encounter No: [id number] : 1945 Primary Insurance: MEDICARE A & B Anticipated DC Date: 03-21-2019 Planned Disposition: [facility] Facility External Planned Provider: [facility] OR [facility], LEAD NEURODIAGNOSTIC TECHNOLOGIST CARE MEDICAID BED DCP follow-up note: CM [place] [facility] [phone]. CM FAXED REFERRALS TO [facility], AND [facility], , FOR LEAD NEURODIAGNOSTIC TECHNOLOGIST CARE. CM WAITING DEXTER SCREENING DETERMINATION WELL ADMISSION DETERMINATIONS FOR CARE HOME CARE FROM [facility] AND [facility]. Control Panel Tester: Monster Ramirez DCP- Discharge Planning Updated by [id number]: Monster Ramirez on 03/19/19 4:[address] Patient Name: CARLOS JOY Admission Status: ER Accout number: [id number] Admission Date: 03-17-2019 : 1945 Admission Diagnosis:COUGH Attending: NEDA WATERMAN Current LOS: 2 Anticipated DC Date: 03-21-2019 Planned Disposition: [facility] Facility Primary Insurance: MEDICARE A & B PLANNED EXTERNAL PROVIDER: [facility] OR [facility], MEDICARE SKILLED BED Discharge Planning Comments: CM SPOKE TO DR. GUSTAFSON WHO HAS TALKED TO PT'S SPOUSE, SHE WILL NOW PLACE PT INTO NURSING FACILITY. CM MET WITH PT'S SPOUSE TO DISCUSS DISCHARGE PLANNING AND NEEDS. PT'S SPOUSE REPORTS PT HAS BEEN LIVING AT HOME DEPENDENTLY WITH HER BUT SHE IS NOT ABLE TO CARE FOR PT ANY LONGER. PT GRABS HER ARM AND WILL NOT LET GO AND REFUSES TO GO TO DIALYSIS. PT HAS DEMENTIA. SPOUSE WANTS PT PLACED FOR LEAD NEURODIAGNOSTIC TECHNOLOGIST CARE AT [facility] OR [facility] IN [place]. CHOICE SIGNED. IMPORTANT MESSAGE FROM MEDICARE PROVIDED AND EXPLAINED. CM COMPLETED DEXTER WITH PT'S SPOUSE'S ASSISTANCE. SIGNATURES OBTAINED FROM MARY LOU VILLASENOR. CM TO FAX DEXTER TO [facility] SOON POSSIBLE FOR DEXTER / STATE CLEARANCE TO ENTER PENITENTIARY FACILITY. CM TO FAX REFERRALS TO [facility] AND [facility] FOR SKILLED / LEAD NEURODIAGNOSTIC TECHNOLOGIST CARE SOON POSSIBLE. Control Panel Tester: Monster Ramirez DCPIA - Discharge Planning Initial Assessment Updated by [id number]: Monster Ramirez on 03/19/19 5:03 pm * Is the patient Alert and Oriented? No * How many steps to enter\\exit or inside your home? * PCP DR. SOLIS [place] * Pharmacy [facility] * Preadmission Environment Home with Family * ADLs Partial Dependent * Partial ADLs (Assistance needed) Medication Management * Equipment Rolling Walker Wheelchair * Other Equipment NO MEDICAL EQUIPMENT PROVIDER PREFERENCE * List name and contact numbers for known caregivers / representatives who currently or will assist patient after discharge: WAYNE JOY, SPOUSE, * Verbal permission to speak to the caregivers and representatives has been obtained from the patient. N/A * Community resources currently utilized Other * Please name any agencies selected above. OUTPATIENT DIALYSIS, [facility] [place], TTS, 1130AM * Additional services required to return to the preadmission environment? Yes * Can the patient safely return to the preadmission environment? No * Has this patient been hospitalized within the prior 30 days at any hospital? No Coverage Notice Reviewer: [id number] Argenis Ramirez Notice Issued Date-Time: 03/19/2019 13:30 Notice Type: IM Discharge Notice Notice Delivered To: Family Member Relationship to Patient: Spouse Asphalt Distributor Operator Name: WAYNE JOY Delivery Method: HAND - Hand Delivered Adriane Days: Prior Verbal Notification: Recipient Understood Notice: Yes Recipient Signature: Yes Med Rec Note Co-signed by Attending: Coverage Notice Comment: Reviewer: [id number] Ramirez Notice Issued Date-Time: 03/20/2019 13:30 Notice Type: Patient Choice Letter Notice Delivered To: Family Member Relationship to Patient: Spouse Asphalt Distributor Operator Name: WAYNE JOY Delivery Method: HAND - Hand Delivered Adriane Days: Prior Verbal Notification: Recipient Understood Notice: Yes Recipient Signature: Yes Med Rec Note Co-signed by Attending: Coverage Notice Comment: [facility] Last DP export: 03/21/19 6:17 a Patient Name: CARLOS JOY Page [phone] at 1404 All edits/amendments must be made on the electronic document DICTATION DATE: 03/21/191402 MOTOR VEHICLE REPRESENTATIVE: ISMAEL 03/21/191402 RPT#: [id number] DC DATE: STATUS: ADM IN [facility] [address] [place] [address] END OF REPORT
--- NOTE | 2019-03-21 15:16 | NUR ---
I have reviewed this patient and I concur with the Shift Assessment completed by the Licensed Practical Nurse today this shift.
[2019-03-21 16:50] VITALS: BP 109/45
--- NOTE | 2019-03-21 19:36 | NUR ---
PT CARE ASSUMED. BEDSIDE SHIFT REPORT COMPLETE. PT UP IN CHAIR WITH NEXT TO HIM. RR EVEN AND UNLABORED. NO S/S OF DISTRESS NOTED. PT DENIES NEEDS AT THIS TIME. CALL LIGHT IN REACH. WILL CPOC.
[2019-03-21 20:00] VITALS: BP 111/48
[2019-03-22 00:08] VITALS: BP 116/50
[2019-03-22 04:00] VITALS: BP 117/58
[2019-03-22 04:57] LABS: BASOPHILS 0.3 % (0-2); EOSINOPHILS 5.9 % (0-7); HEMOGLOBIN 8.7 g/dL (13.5-17.5); IMMATURE GRANULOCYTES 0.2 % (0-5); LYMPHOCYTES 12.2 % (15-50); MCH 27.1 pg (26.0-34.0); MCHC 34.8 g/dL (31.0-37.0); MCV 77.9 fL (80.0-100.0); MEAN PLATELET VOLUME 10.1 fL (7.4-10.4); MONOCYTES 12.4 % (2-11); RBC 3.21 10x6/uL (4.20-6.10); RDW 16.8 % (11.5-14.5); WBC 6.1 10x3/uL (4.8-10.8)
[2019-03-22 05:12] LABS: PLATELET COUNT 191 10x3/uL (130-400)
[2019-03-22 05:28] LABS: ALBUMIN 3.2 g/dL (3.4-5.0); ANION GAP 13.9 mmol/L (8-16); BILIRUBIN - TOTAL 1.05 mg/dL (0.2-1.3); CALCIUM 9.2 mg/dL (8.5-10.1); CARBON DIOXIDE 29.1 mmol/L (21.0-32.0); CREATININE - SERUM 7.2 mg/dL (0.6-1.3); PROTEIN - SERUM 5.7 g/dL (6.4-8.2)
--- NOTE | 2019-03-22 07:00 | NUR ---
RECEIVED REPORT. ASSUMED CARE OF PATIENT. PATIENT IN ISAIAS BED WITH MESH ON THE RIGHT SIDE OPEN. PATIENTS AT BEDSIDE WHERE MESH IS OPEN. PATIENT RESTING IN BED WITH EYES OPEN. ALERT/ORIENTED THIS AM. DENIES NEEDS. NO DISTRESS. CALL LIGHT WITHIN REACH.
--- NOTE | 2019-03-22 07:58 | NUR ---
PATIENTS AT BEDSIDE AND REQUESTING PATIENT FSBS TO BE CHECKED PRIOR TO EATING AM MEAL. PATIENT FSBS WAS RECORDED AT 0634 BEING 166. REQUEST DENIED TO RECHECK SINCE FSBS WAS JUST CHECKED. MARY LOU PUENTE AT BEDSIDE FOR AM ROUNDS AT THIS TIME. NO DISTRESS.
--- NOTE | 2019-03-22 09:27 | NUR ---
PATIENT REMOVED FROM ISAIAS ENCLOSURE BED AT THIS TIME AND PLACED ON REGULAR BED WITH ISAIAS ALARM AT THIS TIME. PATIENT DOES NOT REQUIRE A BED HE IS ALERT/ORIENTED, AT BEDSIDE, AND RENAL WRAP CHECKER WOULD LIKE THE BED D/C'D THEY ARE TRYING TO ALSO GET HIM TO NURSING FACILITY BUT CAN NOT DO THAT UNTIL HE HAS BEEN OUT OF RESTRAINTS AT LEAST 24 HOURS. DUE TO PATIENT MENTAL STATUS OF BEING ALERT/ORIENTED AND WALKING WITH PHYSICAL THERAPY THIS AM, ENCLOSURE BED HAS BEEN DISCONTINUED.
[2019-03-22 09:36] VITALS: BP 129/62
--- NOTE | 2019-03-22 10:20 | NUR ---
PATIENT LEFT UNIT VIA WHEELCHAIR AT THIS TIME FOR DIALYSIS. NO DISTRESS UPON LEAVING UNIT.
--- NOTE | 2019-03-22 10:38 | NUR ---
RECEIVED ORDER FOR SHOULDER XRAYS. PATIENT COMPLAINED OF INCREASED SHOULDER PAIN AND PATIENT HAD A FALL A FEW DAYS AGO. ORDER PLACED TO COMPUTER. PATIENT WITH FULL RANGE OF MOTION TO LEFT ARM/SHOULDER. NO SWELLING, DISCOLORING. SLIGHT TENDERNESS WITH PALPATE AT ACROMINION PROCESS/ JOINT.
--- NOTE | 2019-03-22 11:37 | NUR ---
FSBS 214. PATIENT IN DIALYSIS AND UNABLE TO EAT, INSULIN HELD AT THIS TIME UNTIL PATIENT RETURNS TO THE UNIT AND CAN CONSUME NOON MEAL OR SNACK.
--- NOTE | 2019-03-22 16:37 | NUR ---
FSBS 204. PATIENT REFUSED INSULIN HE STATED HE WAS NOT GOING TO EAT DINNER TONIGHT BECAUSE HE HAD A LATE LUNCH AFTER DIALYSIS.
[2019-03-22 18:25] VITALS: BP 115/59
--- NOTE | 2019-03-22 18:30 | NUR ---
PATIENT SITTING AT BEDSIDE. NO DISTRESS. BUTT PASTE PROVIDED TO PATIENT EARLIER AND PATIENT REPORTS IT HAS MADE HIM FEEL BETTER. [facility] NO DISTRESS. CALL LIGHT WITHIN REACH. NO DISTRESS.
--- NOTE | 2019-03-22 19:16 | NUR ---
RECIEVED BEDSIDE REPORT. UP IN BED WITH EYES OPEN AND TV ON. SPOUSE AT BEDSIDE. ALERT AND ORIENTED. UP WITH ASSIST AND USES A WALKER. AVF TO LEFT ARM WITH DSG INTACT. DENIES ANY NEEDS AT THIS TIME.
[2019-03-22 20:00] VITALS: BP 112/45
[2019-03-23] VITALS: BP 117/58
--- NOTE | 2019-03-23 07:00 | NUR ---
RECEIVED REPORT. ASSUMED CARE OF PATIENT. CALL LIGHT WITHIN REACH. PATIENT DENIES NEEDS AT THIS TIME. PATIENT AT BEDSIDE. NO DISTRESS.
[2019-03-23 08:00] VITALS: BP 160/93
--- NOTE | 2019-03-23 09:30 | NUR ---
PATIENT OOB AMBULATING WITH WALKER AROUND THE ENTIR UNIT WITH PT. NO DISTRESS. TOELRATED THERAPY WELL.
--- NOTE | 2019-03-23 11:45 | NUR ---
FSBS 216. 4 UNITS HUMULIN ADMINISTERED PER SLIDING SCALE. NO DISTRESS.
[2019-03-23 13:47] VITALS: BP 117/45
--- NOTE | 2019-03-23 17:09 | NUR ---
FSBS 158. 2 UNITS HUMULIN ADMINISTERED PER SLIDING SCALE. PATIENT CONSUMING PM MEAL AT THIS TIME. NO DISTRESS.
[2019-03-23 17:13] VITALS: BP 106/44
--- NOTE | 2019-03-23 19:14 | NUR ---
RECIEVED BEDSIDE REPORT. RESTING IN BED WITH EYES OPEN AND TV ON. ALERT AND ORIENTED X4. SPOUSE AT BEDSIDE AND WALKER AT BEDSIDE. LEFT ARM RESERVED D/T AVF TO UPPER ARM DSG CDI. [place] AND [place]. DENIES ANY NEEDS AT THIS TIME.
[2019-03-23 20:00] VITALS: BP 109/39
[2019-03-24] VITALS: BP 105/50
[2019-03-24 04:00] VITALS: BP 112/55
--- NOTE | 2019-03-24 07:40 | NUR ---
REPORT RECIEVED. PT A&O. RR EVEN AND UNLABORED. NO DISTRESS NOTED. PT HAS A L AV FISTULA. AT BEDSIDE. BED LOCKED AND IN LOWEST POSITION, CALL LIGHT IN REACH. WILL CTM
--- NOTE | 2019-03-24 07:51 | MORECARE ---
CASE MANAGEMENT DISCHARGE SUMMARY PATIENT: CARLOS JOY UNIT: [id number] ADM DATE: 03/17/19 AGE: 73 : 43 SEX: M ROOM/BED: D.2101 AUTHOR: MARTY,DOC PHYSICIAN: REFERRING PHYSICIAN: NEDA WATERMAN MD DATE OF SERVICE: 03/24/19 Discharge Plan Patient Name: CARLOS JOY Facility: [facility]:[place] : 1945 Planned Disposition: Nursing Facility [facility] Cert Anticipated Discharge Date: 03/24/19 Discharge Date: Expected LOS: 7 Initial Reviewer: [id number] Initial Review Date: 03/17/2019 Generated: 03/24/19 8:50 am Comments DCP- Discharge Planning Updated by [email or web address]: Monster Ramirez on 03/21/19 1:[address] Patient Name: CARLOS JOY Encounter No: [id number] : 1945 Primary Insurance: MEDICARE A & B Anticipated DC Date: 03-21-2019 Planned Disposition: Nursing Facility [facility] Cert External Planned Provider: [facility], NURSING HOME CARE MEDICAID BED DCP follow-up note: JANES AND HOLDEN OF [facility] ARRIVED, DELIVERED CAPACITY VERIFICATION FORM AND ASSESSED PT IN ROOM. CLARE OF [facility] ALSO EVALUATED PT AND MET WITH PT'S SPOUSE. CM SPOKE TO MARY LOU FORTUNE WHO COMPLETED CAPACITY FORM. CM FAXED CAPACITY FORM TO [facility]. BOTH FACILITIES INFORMED CM THAT PT MUST BE OUT OF RESTRAINT FOR AT LEAST 24 HOURS FOR PLACEMENT IN FACILITY. DEXTER APPROVED. CM WAITING ADMISSION DETERMINATIONS FOR COMMUNICATION STUDIES PROFESSOR CARE FROM [facility] AND [facility]. PATIENT MUST BE OUT OF RESTRAINT FOR AT LEAST 24 HOURS FOR PLACEMENT IN RETIREMENT. Bale Opener: Monster Ramirez DCP- Discharge Planning Updated by [id number]: Monster Ramirez on 03/21/19 6:[address] Patient Name: CARLOS JOY Encounter No: [id number] : 1945 Primary Insurance: MEDICARE A & B Anticipated DC Date: 03-21-2019 Planned Disposition: Nursing Facility [facility] Cert External Planned Provider: [facility] OR [facility], NURSING HOME CARE MEDICAID BED DCP follow-up note: CM FAXED REFERRAL UPDATES TO INCLUDE DEXTER LETTER OF NON PASRR TO BOTH [facility] AND [facility]. DEXTER APPROVED. CM WAITING ADMISSION DETERMINATIONS FOR COMMUNICATION STUDIES PROFESSOR CARE FROM [facility] AND [facility]. CM WAITING "CAPACITY VERIFICATION BY PHYSICIAN" FAX FOR PHYSICIAN TO COMPLETE FOR CM TO FAX BACK TO [facility]. Bale Opener: Monster Ramirez DCP- Discharge Planning Updated by [id number]: Monster Ramirez on 03/20/19 3:[address] Patient Name: CARLOS JOY Encounter No: [id number] : 1945 Primary Insurance: MEDICARE A & B Anticipated DC Date: 03-21-2019 Planned Disposition: Nursing Facility [facility] Cert External Planned Provider: [facility] OR [facility], COMMUNICATION STUDIES PROFESSOR CARE MEDICAID BED DCP follow-up note: CM RECEIVED CALL FROM summer [facility], , THEY ARE FAXING A FORM FOR THE DOCTOR TO COMPLETE AND SIGN REGARDING "CAPACITY VERIFICATION BY PHYSICIAN" REGARDING PATIENT. THIS WILL NEED TO BE COMPLETED AND RETURN. [facility] WAITING ON PT'S TO CALL THEM BACK TO DISCUSS ADMISSION. CM NOTIFIED PT'S TO CALL [facility]. DEXTER APPROVED. CM WAITING ADMISSION DETERMINATIONS FOR COMMUNICATION STUDIES PROFESSOR CARE FROM [facility] AND [facility]. CM WAITING "CAPACITY VERIFICATION BY PHYSICIAN" FAX FOR PHYSICIAN TO COMPLETE FOR CM TO FAX BACK TO [facility]. Bale Opener: Monster Ramirez DCP- Discharge Planning Updated by [id number]: Monster Ramirez on 03/20/19 12:[address] Patient Name: CARLOS JOY Encounter No: [id number] : 1945 Primary Insurance: MEDICARE A & B Anticipated DC Date: 03-21-2019 Planned Disposition: Nursing Facility [facility] Cert External Planned Provider: [facility] OR [facility], COMMUNICATION STUDIES PROFESSOR CARE MEDICAID BED DCP follow-up note: CM RECEIVED DEXTER DETERMINATION, PT IS PASRR EXEMPT AND MAY ENTER DETENTION HOME WHEN ACCEPTED. CM RECEIVED CALL FROM summer [facility], , THEY ARE CALLING PT'S SPOUSE TO DISCUSS COMMUNICATION STUDIES PROFESSOR CARE AND ARE CONCERNED THAT PT MAY REFUSE DIALYSIS AND PT'S SPOUSE IS NOT WANTING HOSPICE. SUMMER WILL CALL CM WHEN ADMISSION DETERMINATION IS MADE. CM SPOKE TO CLARE OF [facility], , THEY ARE CONSIDERING PT FOR COMMUNICATION STUDIES PROFESSOR CARE. DEXTER APPROVED. CM WAITING ADMISSION DETERMINATIONS FOR NURSING HOME CARE FROM [facility] AND [facility]. Bale Opener: Monster Ramirez DCP- Discharge Planning Updated by [id number]: Monster Ramirez on 03/20/19 7:[address] Patient Name: CARLOS JOY Encounter No: [id number] : 1945 Primary Insurance: MEDICARE A & B Anticipated DC Date: 03-21-2019 Planned Disposition: [facility] Facility External Planned Provider: [facility] OR [facility], COMMUNICATION STUDIES PROFESSOR CARE MEDICAID BED DCP follow-up note: CM FAXED DEXTER ASSESSMENT WITH SUPPORTING MEDICAL DOCUMENTS [place] [facility] [phone]. CM FAXED REFERRALS TO [facility], AND [facility], , FOR COMMUNICATION STUDIES PROFESSOR CARE. CM WAITING DEXTER SCREENING DETERMINATION WELL ADMISSION DETERMINATIONS FOR NURSING HOME CARE FROM [facility] AND [facility]. Bale Opener: Monster Ramirez DCP- Discharge Planning Updated by [id number]: Monster Ramirez on 03/19/19 4:[address] Patient Name: CARLOS JOY Admission Status: ER Accout number: [id number] Admission Date: 03-17-2019 : 1945 Admission Diagnosis:COUGH Attending: NEDA WATERMAN Current LOS: 2 Anticipated DC Date: 03-21-2019 Planned Disposition: [facility] Facility Primary Insurance: MEDICARE A & B PLANNED EXTERNAL PROVIDER: [facility] OR [facility], MEDICARE SKILLED BED Discharge Planning Comments: CM SPOKE TO DR. GUSTAFSON WHO HAS TALKED TO PT'S SPOUSE, SHE WILL NOW PLACE PT INTO NURSING FACILITY. CM MET WITH PT'S SPOUSE TO DISCUSS DISCHARGE PLANNING AND NEEDS. PT'S SPOUSE REPORTS PT HAS BEEN LIVING AT HOME DEPENDENTLY WITH HER BUT SHE IS NOT ABLE TO CARE FOR PT ANY LONGER. PT GRABS HER ARM AND WILL NOT LET GO AND REFUSES TO GO TO DIALYSIS. PT HAS DEMENTIA. SPOUSE WANTS PT PLACED FOR COMMUNICATION STUDIES PROFESSOR CARE AT [facility] OR [facility] IN [place]. CHOICE SIGNED. IMPORTANT MESSAGE FROM MED[employer]ARE PROVIDED AND EXPLAINED. CM COMPLETED DEXTER WITH PT'S SPOUSE'S ASSISTANCE. SIGNATURES OBTAINED FROM MARY LOU VILLASENOR. CM TO FAX DEXTER TO [facility] SOON POSSIBLE FOR DEXTER / STATE CLEARANCE TO ENTER DETENTION FACILITY. CM TO FAX REFERRALS TO [facility] AND [facility] FOR SKILLED / COMMUNICATION STUDIES PROFESSOR CARE SOON POSSIBLE. Bale Opener: Monster Ramirez DCPIA - Discharge Planning Initial Assessment Updated by [id number]: Monster Ramirez on 03/19/19 5:03 pm * Is the patient Alert and Oriented? No * How many steps to enter\\exit or inside your home? * PCP DR. SOLIS [place] * Pharmacy [facility] * Preadmission Environment Home with Family * ADLs Partial Dependent * Partial ADLs (Assistance needed) Medication Management * Equipment Rolling Walker Wheelchair * Other Equipment NO MEDICAL EQUIPMENT PROVIDER PREFERENCE * List name and contact numbers for known caregivers / representatives who currently or will assist patient after discharge: WAYNE JOY, SPOUSE, * Verbal permission to speak to the caregivers and representatives has been obtained from the patient. N/A * Community resources currently utilized Other * Please name any agencies selected above. OUTPATIENT DIALYSIS, [facility] [place], TTS, 1130AM * Additional services required to return to the preadmission environment? Yes * Can the patient safely return to the preadmission environment? No * Has this patient been hospitalized within the prior 30 days at any hospital? No Coverage Notice Reviewer: [id number] Argenis Ramirez Notice Issued Date-Time: 03/19/2019 13:30 Notice Type: IM Discharge Notice Notice Delivered To: Family Member Relationship to Patient: Spouse Economics Faculty Member Name: WAYNE JOY Delivery Method: HAND - Hand Delivered Adriane Days: Prior Verbal Notification: Recipient Understood Notice: Yes Recipient Signature: Yes Med Rec Note Co-signed by Attending: Coverage Notice Comment: Reviewer: [id number] Ramirez Notice Issued Date-Time: 03/20/2019 13:30 Notice Type: Patient Choice Letter Notice Delivered To: Family Member Relationship to Patient: Spouse Economics Faculty Member Name: WAYNE JOY Delivery Method: HAND - Hand Delivered Adriane Days: Prior Verbal Notification: Recipient Understood Notice: Yes Recipient Signature: Yes Med Rec Note Co-signed by Attending: Coverage Notice Comment: [facility] Last DP export: 03/21/19 1:04 p Patient Name: CARLOS JOY Page 73723 at 0751 All edits/amendments must be made on the electronic document DICTATION DATE: 03/24/19749 WORK TICKET DISTRIBUTOR: ISMAEL 03/24/19749 RPT#: [id number] DC DATE: STATUS: ADM IN [facility] [address] [place] [address] END OF REPORT
--- NOTE | 2019-03-24 07:57 | MORECARE ---
CASE MANAGEMENT DISCHARGE SUMMARY PATIENT: CARLOS JOY UNIT: [id number] ADM DATE: 03/17/19 AGE: 73 : 43 SEX: M ROOM/BED: D.2102 AUTHOR: MARTY,DOC PHYSICIAN: REFERRING PHYSICIAN: NEDA WATERMAN MD DATE OF SERVICE: 03/24/19 Discharge Plan Patient Name: CARLOS JOY Facility: [facility]:[place] : 1945 Planned Disposition: Nursing Facility [facility] Cert Anticipated Discharge Date: 03/24/19 Discharge Date: Expected LOS: 7 Initial Reviewer: [id number] Initial Review Date: 03/17/2019 Generated: 03/24/19 8:57 am Comments DCP- Discharge Planning Updated by [id number]: Monster Ramirez on 03/21/19 1:[address] Patient Name: CARLOS JOY Encounter No: [id number] : 1945 Primary Insurance: MEDICARE A & B Anticipated DC Date: 03-21-2019 Planned Disposition: Nursing Facility [facility] Cert External Planned Provider: [facility] OR [facility], SNF CARE MEDICAID BED DCP follow-up note: [facility] ARRIVED, DELIVERED CAPACITY VERIFICATION FORM AND ASSESSED PT IN ROOM. [facility] ALSO EVALUATED PT AND MET WITH PT'S SPOUSE. CM SPOKE TO MARY LOU FORTUNE WHO COMPLETED CAPACITY FORM. CM FAXED CAPACITY FORM TO [facility]. BOTH FACILITIES INFORMED CM THAT PT MUST BE OUT OF RESTRAINT FOR AT LEAST 24 HOURS FOR PLACEMENT IN FACILITY. DEXTER APPROVED. CM WAITING ADMISSION DETERMINATIONS FOR REHABILITATION PHYSICIAN CARE FROM [facility] AND [facility]. PATIENT MUST BE OUT OF RESTRAINT FOR AT LEAST 24 HOURS FOR PLACEMENT IN [facility]. Industrial Training Specialist: Monster Ramirez DCP- Discharge Planning Updated by [id number]: Monster Ramirez on 03/21/19 6:[address] Patient Name: CARLOS JOY Encounter No: [id number] : 1945 Primary Insurance: MEDICARE A & B Anticipated DC Date: 03-21-2019 Planned Disposition: Nursing Facility [facility] Cert External Planned Provider: [facility] OR [facility], SNF CARE MEDICAID BED DCP follow-up note: CM FAXED REFERRAL UPDATES TO INCLUDE DEXTER LETTER OF NON PASRR TO BOTH [facility] AND [facility]. [facility]TER APPROVED. CM WAITING ADMISSION DETERMINATIONS FOR REHABILITATION PHYSICIAN CARE FROM [facility] AND [facility]. CM WAITING "CAPACITY VERIFICATION BY PHYSICIAN" FAX FOR PHYSICIAN TO COMPLETE FOR CM TO FAX BACK TO [facility]. Industrial Training Specialist: Monster Ramirez DCP- Discharge Planning Updated by [id number]: Monster Ramirez on 03/20/19 3:[address] Patient Name: CARLOS JOY Encounter No: [id number] : 1945 Primary Insurance: MEDICARE A & B Anticipated DC Date: 03-21-2019 Planned Disposition: Nursing Facility [facility] Cert External Planned Provider: [facility] OR [facility], REHABILITATION PHYSICIAN CARE MEDICAID BED DCP follow-up note: CM RECEIVED CALL FROM [facility], , THEY ARE FAXING A FORM FOR THE DOCTOR TO COMPLETE AND SIGN REGARDING "CAPACITY VERIFICATION BY PHYSICIAN" REGARDING PATIENT. THIS WILL NEED TO BE COMPLETED AND RETURN. [facility] WAITING ON PT'S TO CALL THEM BACK TO DISCUSS ADMISSION. CM NOTIFIED PT'S TO CALL [facility]. DEXTER APPROVED. CM WAITING ADMISSION DETERMINATIONS FOR REHABILITATION PHYSICIAN CARE FROM [facility] AND [facility]. CM WAITING "CAPACITY VERIFICATION BY PHYSICIAN" FAX FOR PHYSICIAN TO COMPLETE FOR CM TO FAX BACK TO [facility]. Industrial Training Specialist: Monster Ramirez DCP- Discharge Planning Updated by [id number]: Monster Ramirez on 03/20/19 12:[address] Patient Name: CARLOS JOY Encounter No: [id number] : 1945 Primary Insurance: MEDICARE A & B Anticipated DC Date: 03-21-2019 Planned Disposition: Nursing Facility [facility] Cert External Planned Provider: [facility] OR [facility], REHABILITATION PHYSICIAN CARE MEDICAID BED DCP follow-up note: CM RECEIVED DEXTER DETERMINATION, PT IS PASRR EXEMPT AND MAY ENTER ALF HOME WHEN ACCEPTED. CM RECEIVED CALL FROM [facility], , THEY ARE CALLING PT'S SPOUSE TO DISCUSS REHABILITATION PHYSICIAN CARE AND ARE CONCERNED THAT PT MAY REFUSE DIALYSIS AND PT'S SPOUSE IS NOT WANTING HOSPICE. [facility] WILL CALL CM WHEN ADMISSION DETERMINATION IS MADE. CM SPOKE TO [facility], , THEY ARE CONSIDERING PT FOR REHABILITATION PHYSICIAN CARE. DEXTER APPROVED. CM WAITING ADMISSION DETERMINATIONS FOR SNF CARE FROM [facility] AND [facility]. Industrial Training Specialist: Monster Ramirez DCP- Discharge Planning Updated by [id number]: Monster Ramirez on 03/20/19 7:[address] Patient Name: CARLOS JOY Encounter No: [id number] : 1945 Primary Insurance: MEDICARE A & B Anticipated DC Date: 03-21-2019 Planned Disposition: Residential Facility External Planned Provider: [facility] OR [facility], REHABILITATION PHYSICIAN CARE MEDICAID BED DCP follow-up note: CM FAXED DEXTER ASSESSMENT WITH SUPPORTING MEDICAL DOCUMENTS TO [facility] [phone]. CM FAXED REFERRALS TO [facility], AND [facility], , FOR REHABILITATION PHYSICIAN CARE. CM WAITING DEXTER SCREENING DETERMINATION WELL ADMISSION DETERMINATIONS FOR SNF CARE FROM [facility] AND [facility]. Industrial Training Specialist: Monster Ramirez DCP- Discharge Planning Updated by [id number]: Monster Ramirez on 03/19/19 4:[address] Patient Name: CARLOS JOY Admission Status: ER Accout number: [id number] Admission Date: 03-17-2019 : 1945 Admission Diagnosis:COUGH Attending: NEDA WATERMAN Current LOS: 2 Anticipated DC Date: 03-21-2019 Planned Disposition: Residential Facility Primary Insurance: MEDICARE A & B PLANNED EXTERNAL PROVIDER: [facility] OR [facility], MEDICARE SKILLED BED Discharge Planning Comments: CM SPOKE TO DR. GUSTAFSON WHO HAS TALKED TO PT'S SPOUSE, SHE WILL NOW PLACE PT INTO NURSING FACILITY. CM MET WITH PT'S SPOUSE TO DISCUSS DISCHARGE PLANNING AND NEEDS. PT'S SPOUSE REPORTS PT HAS BEEN LIVING AT HOME DEPENDENTLY WITH HER BUT SHE IS NOT ABLE TO CARE FOR PT ANY LONGER. PT GRABS HER ARM AND WILL NOT LET GO AND REFUSES TO GO TO DIALYSIS. PT HAS DEMENTIA. SPOUSE WANTS PT PLACED FOR REHABILITATION PHYSICIAN CARE AT [facility] OR [facility] IN [place]. CHOICE SIGNED. IMPORTANT MESSAGE FROM MEDICARE PROVIDED AND EXPLAINED. CM COMPLETED DEXTER WITH PT'S SPOUSE'S ASSISTANCE. SIGNATURES OBTAINED FROM MARY LOU VILLASENOR. CM TO FAX DEXTER TO [facility] SOON POSSIBLE FOR DEXTER / STATE CLEARANCE TO ENTER ALF FACILITY. CM TO FAX REFERRALS TO [facility] AND [facility] FOR SKILLED / REHABILITATION PHYSICIAN CARE SOON POSSIBLE. Industrial Training Specialist: Monster Ramirez DCPIA - Discharge Planning Initial Assessment Updated by [id number]: Monster Ramirez on 03/19/19 5:03 pm * Is the patient Alert and Oriented? No * How many steps to enter\\exit or inside your home? * PCP DR. SOLIS [place] * Pharmacy [facility] * Preadmission Environment Home with Family * ADLs Partial Dependent * Partial ADLs (Assistance needed) Medication Management * Equipment Rolling Walker Wheelchair * Other Equipment NO MEDICAL EQUIPMENT PROVIDER PREFERENCE * List name and contact numbers for known caregivers / representatives who currently or will assist patient after discharge: WAYNE JOY, SPOUSE, * Verbal permission to speak to the caregivers and representatives has been obtained from the patient. N/A * Community resources currently utilized Other * Please name any agencies selected above. OUTPATIENT DIALYSIS, [facility] [place], [place], 1130AM * Additional services required to return to the preadmission environment? Yes * Can the patient safely return to the preadmission environment? No * Has this patient been hospitalized within the prior 30 days at any hospital? No External Providers External Provider: [facility] Next Contact Date: 03/20/2019 Service Request Date: Service Type: Resolution: Reviewer: Comments: Coverage Notice Reviewer: [id number] Argenis Ramirez Notice Issued Date-Time: 03/19/2019 13:30 Notice Type: IM Discharge Notice Notice Delivered To: Family Member Relationship to Patient: Spouse Physician Aide Name: WAYNE JOY Delivery Method: HAND - Hand Delivered Adriane Days: Prior Verbal Notification: Recipient Understood Notice: Yes Recipient Signature: Yes Med Rec Note Co-signed by Attending: Coverage Notice Comment: Reviewer: [id number] Argenis Ramirez Notice Issued Date-Time: 03/20/2019 13:30 Notice Type: Patient Choice Letter Notice Delivered To: Family Member Relationship to Patient: Spouse Physician Aide Name: WAYNE JOY Delivery Method: HAND - Hand Delivered Adriane Days: Prior Verbal Notification: Recipient Understood Notice: Yes Recipient Signature: Yes Med Rec Note Co-signed by Attending: Coverage Notice Comment: [facility] Last DP export: 03/24/19 6:51 a Patient Name: CARLOS JOY Page 70852 at 0757 All edits/amendments must be made on the electronic document DICTATION DATE: 03/24/19756 AIRLINE CAPTAIN: ISMAEL 03/24/19756 RPT#: [id number] DC DATE: STATUS: ADM IN [facility] [address] [place] [address] END OF REPORT
--- NOTE | 2019-03-24 08:04 | MORECARE ---
CASE MANAGEMENT DISCHARGE SUMMARY PATIENT: CARLOS JOY UNIT: [id number] ADM DATE: 03/17/19 AGE: 73 : 43 SEX: M ROOM/BED: D.2105 AUTHOR: MARYT,DOC PHYSICIAN: REFERRING PHYSICIAN: NEDA WATERMAN MD DATE OF SERVICE: 03/24/19 Discharge Plan Patient Name: CARLOS JOY Facility: [facility]:[place] : 1945 Planned Disposition: Nursing Facility [facility] Cert Anticipated Discharge Date: 03/24/19 Discharge Date: Expected LOS: 7 Initial Reviewer: [id number] Initial Review Date: 03/17/2019 Generated: 03/24/19 9:03 am Comments DCP- Discharge Planning Updated by [id number]: Monster Ramirez on 03/24/19 7:[address] Patient Name: CARLOS JOY Admission Status: ER Accout number: [id number] Admission Date: 03-17-2019 : 1945 Admission Diagnosis:COUGH Attending: NEDA WATERMAN Current LOS: 7 Anticipated DC Date: 03-24-2019 Planned Disposition: Nursing Facility [facility] Cert Primary Insurance: MEDICARE A & B PLANNED EXTERNAL PROVIDER: [facility] LONG [facility]M [facility] MEDICAID BED DCP follow-up note: BOTH FACILITIES INFORMED CM CONFIRMED VIA CHART REVIEW THAT PT HAS BEEN OUT OF RESTRAINT FOR AT LEAST [address] IN FACILITY[address] GUSTAFSON NOTIFIED. [facility] NOTIFED CM THAT THEY WILL ACCEPT PT. CM WAITING FOR FACILITY TO CALL AND NOTIFY IF THEY WILL ACCEPT TODAY. WHEN NOTIFIED BY [facility] THAT THEY CAN PROVIDE TRANSPORTATION, NOTIFY DOCTOR FOR DISCHARGE ORDERS. CM TO FAX DISCHARGE INFORMATION TO [facility] AT [phone], NURSE REPORT TO BE CALLED TO [facility] AT [phone]. [facility] TO PROVIDE VAN TRANSPORTATION IF PT IS ABLE TO SIT SAFELY FOR TRANSPORT TO [place]. Broke Beater Operator: Monster Ramirez DCP- Discharge Planning Updated by [id number]: Monster Ramirez on 03/21/19 1:[address] Patient Name: CARLOS JOY Encounter No: [id number] : 1945 Primary Insurance: MEDICARE A & B Anticipated DC Date: 03-21-2019 Planned Disposition: Nursing Facility [facility] Cert External Planned Provider: [facility], SHELTER CARE MEDICAID BED DCP follow-up note: [facility] ARRIVED, DELIVERED CAPACITY VERIFICATION FORM AND ASSESSED PT IN ROOM. [facility] ALSO EVALUATED PT AND MET WITH PT'S SPOUSE. CM SPOKE TO MARY LOU FORTUNE WHO COMPLETED CAPACITY FORM. CM FAXED CAPACITY FORM TO [facility]. BOTH FACILITIES INFORMED CM THAT PT MUST BE OUT OF RESTRAINT FOR AT LEAST 24 HOURS FOR PLACEMENT IN FACILITY. DEXTER APPROVED. CM WAITING ADMISSION DETERMINATIONS FOR CARPET MEASURER CARE FROM [facility] AND [facility]. PATIENT MUST BE OUT OF RESTRAINT FOR AT LEAST 24 HOURS FOR PLACEMENT IN PENITENTIARY. Broke Beater Operator: Monster Ramirez DCP- Discharge Planning Updated by [id number]: Monster Ramirez on 03/21/19 6:[address] Patient Name: CARLOS JOY Encounter No: [id number] : 1945 Primary Insurance: MEDICARE A & B Anticipated DC Date: 03-21-2019 Planned Disposition: Nursing Facility [facility] Cert External Planned Provider: [facility] OR [facility], CARPET MEASURER CARE MEDICAID BED DCP follow-up note: CM FAXED REFERRAL UPDATES TO INCLUDE DEXTER LETTER OF NON PASRR TO BOTH [facility] AND [facility]. DEXTER APPROVED. CM WAITING ADMISSION DETERMINATIONS FOR CARPET MEASURER CARE FROM [facility] AND [facility]. CM WAITING "CAPACITY VERIFICATION BY PHYSICIAN" FAX FOR PHYSICIAN TO COMPLETE FOR CM TO FAX BACK TO [facility]. Broke Beater Operator: Monster Ramirez DCP- Discharge Planning Updated by [id number]: Monster Ramirez on 03/20/19 3:[address] Patient Name: CARLOS JOY Encounter No: [id number] : 1945 Primary Insurance: MEDICARE A & B Anticipated DC Date: 03-21-2019 Planned Disposition: Nursing Facility [facility] Cert External Planned Provider: [facility] OR [facility], SHELTER CARE MEDICAID BED DCP follow-up note: CM RECEIVED CALL FROM [facility], , THEY ARE FAXING A FORM FOR THE DOCTOR TO COMPLETE AND SIGN REGARDING "CAPACITY VERIFICATION BY PHYSICIAN" REGARDING PATIENT. THIS WILL NEED TO BE COMPLETED AND RETURN. [facility] WAITING ON PT'S TO CALL THEM BACK TO DISCUSS ADMISSION. CM NOTIFIED PT'S TO CALL [facility]. DEXTER APPROVED. CM WAITING ADMISSION DETERMINATIONS FOR SHELTER CARE FROM [facility] AND [facility]. CM WAITING "CAPACITY VERIFICATION BY PHYSICIAN" FAX FOR PHYSICIAN TO COMPLETE FOR CM TO FAX BACK TO [facility]. Broke Beater Operator: Monster Ramirez DCP- Discharge Planning Updated by [id number]: Monster Ramirez on 03/20/19 12:[address] Patient Name: CARLOS JOY Encounter No: [id number] : 1945 Primary Insurance: MEDICARE A & B Anticipated DC Date: 03-21-2019 Planned Disposition: Nursing Facility [facility] External Planned Provider: [facility], CARPET MEASURER CARE MEDICAID BED DCP follow-up note: CM RECEIVED D[facility]TER DETERMINATION, PT IS PASRR EXEMPT AND MAY ENTER [facility] WHEN ACCEPTED. CM RECEIVED CALL FROM [facility], , THEY ARE CALLING PT'S SPOUSE TO DISCUSS SHELTER CARE AND ARE CONCERNED THAT PT MAY REFUSE DIALYSIS AND PT'S SPOUSE IS NOT WANTING HOSPICE. [facility] WILL CALL CM WHEN ADMISSION DETERMINATION IS MADE. CM SPOKE TO [facility], , THEY ARE CONSIDERING PT FOR CARPET MEASURER CARE. [facility]TER APPROVED. CM WAITING ADMISSION DETERMINATIONS FOR CARPET MEASURER CARE FROM [facility] AND [facility]. Broke Beater Operator: Monster Ramirez DCP- Discharge Planning Updated by [id number]: Monster Ramirez on 03/20/19 7:[address] Patient Name: CARLOS JOY Encounter No: [id number] : 1945 Primary Insurance: MEDICARE A & B Anticipated DC Date: 03-21-2019 Planned Disposition: Long-Term Facility External Planned Provider: [facility] OR [facility], SHELTER CARE MEDICAID BED DCP follow-up note: CM FAXED DEXTER ASSESSMENT WITH SUPPORTING MEDICAL DOCUMENTS TO [facility] [phone]. CM FAXED REFERRALS TO [facility], AND [facility], , FOR CARPET MEASURER CARE. CM WAITING DEXTER SCREENING DETERMINATION WELL ADMISSION DETERMINATIONS FOR CARPET MEASURER CARE FROM [facility]. Broke Beater Operator: Monster Ramirez DCP- Discharge Planning Updated by [id number]: Monster Ramirez on 03/19/19 4:[address] Patient Name: CARLOS JOY Admission Status: ER Accout number: [id number] Admission Date: 03-17-2019 : 1945 Admission Diagnosis:COUGH Attending: NEDA WATERMAN Current LOS: 2 Anticipated DC Date: 03-21-2019 Planned Disposition: Long-Term Facility Primary Insurance: MEDICARE A & B PLANNED EXTERNAL PROVIDER: [facility] OR [facility], MEDICARE SKILLED BED Discharge Planning Comments: CM SPOKE TO DR. GUSTAFSON WHO HAS TALKED TO PT'S SPOUSE, SHE WILL NOW PLACE PT INTO NURSING FACILITY. CM MET WITH PT'S SPOUSE TO DISCUSS DISCHARGE PLANNING AND NEEDS. PT'S SPOUSE REPORTS PT HAS BEEN LIVING AT HOME DEPENDENTLY WITH HER BUT SHE IS NOT ABLE TO CARE FOR PT ANY LONGER. PT GRABS HER ARM AND WILL NOT LET GO AND REFUSES TO GO TO DIALYSIS. PT HAS DEMENTIA. SPOUSE WANTS PT PLACED FOR SHELTER CARE AT [facility] OR [facility] IN [place]. CHOICE SIGNED. IMPORTANT MESSAGE FROM MEDICARE PROVIDED AND EXPLAINED. CM COMPLETED DEXTER WITH PT'S SPOUSE'S ASSISTANCE. SIGNATURES OBTAINED FROM MARY LOU VILLASENOR. CM TO FAX DEXTER TO [facility] SOON POSSIBLE FOR DEXTER / STATE CLEARANCE TO ENTER [facility] FACILITY. CM TO FAX REFERRALS TO [facility] FOR SKILLED / CARPET MEASURER CARE SOON POSSIBLE. Broke Beater Operator: Monster Ramirez DCPIA - Discharge Planning Initial Assessment Updated by [id number]: Monster Ramirez on 03/19/19 5:03 pm * Is the patient Alert and Oriented? No * How many steps to enter\\exit or inside your home? * PCP ALYSIA MOMIN * Pharmacy [facility] * Preadmission Environment Home with Family * ADLs Partial Dependent * Partial ADLs (Assistance needed) Medication Management * Equipment Rolling Walker Wheelchair * Other Equipment NO MEDICAL EQUIPMENT PROVIDER PREFERENCE * List name and contact numbers for known caregivers / representatives who currently or will assist patient after discharge: WAYNE JOY, SPOUSE, * Verbal permission to speak to the caregivers and representatives has been obtained from the patient. N/A * Community resources currently utilized Other * Please name any agencies selected above. OUTPATIENT DIALYSIS, [facility] IN [place], [facility], 1130AM * Additional services required to return to the preadmission environment? Yes * Can the patient safely return to the preadmission environment? No * Has this patient been hospitalized within the prior 30 days at any hospital? No Coverage Notice Reviewer: ERIKA Ramirez Notice Issued Date-Time: 03/19/2019 13:30 Notice Type: IM Discharge Notice Notice Delivered To: Family Member Relationship to Patient: Spouse Automobile Repossessor Name: WAYNE JOY Delivery Method: HAND - Hand Delivered Adriane Days: Prior Verbal Notification: Recipient Understood Notice: Yes Recipient Signature: Yes Med Rec Note Co-signed by Attending: Coverage Notice Comment: Reviewer: ERIKA Ramirez Notice Issued Date-Time: 03/20/2019 13:30 Notice Type: Patient Choice Letter Notice Delivered To: Family Member Relationship to Patient: Spouse Automobile Repossessor Name: WAYNE JOY Delivery Method: HAND - Hand Delivered Adriane Days: Prior Verbal Notification: Recipient Understood Notice: Yes Recipient Signature: Yes Med Rec Note Co-signed by Attending: Coverage Notice Comment: [facility] Last DP export: 03/24/19 6:57 a Patient Name: CARLOS JOY Page 51953 at 0804 All edits/amendments must be made on the electronic document DICTATION DATE: 03/24/19802 ICE SKATING COACH: ISMAEL 03/24/19802 RPT#: [id number] DC DATE: STATUS: ADM IN [facility] [address] [place] [address] END OF REPORT
[2019-03-24 08:24] VITALS: BP 112/48
--- NOTE | 2019-03-24 09:54 | MORECARE ---
CASE MANAGEMENT DISCHARGE SUMMARY PATIENT: CARLOS JOY UNIT: [id number] ADM DATE: 03/17/19 AGE: 73 : 41 SEX: M ROOM/BED: D.2105 AUTHOR: MARTY,DOC PHYSICIAN: REFERRING PHYSICIAN: NEDA WATERMAN MD DATE OF SERVICE: 03/24/19 Discharge Plan Patient Name: CARLOS JOY Facility: [facility]:[place] : 1945 Planned Disposition: Nursing Facility [facility] Cert Anticipated Discharge Date: 03/24/19 Discharge Date: Expected LOS: 7 Initial Reviewer: [id number] Initial Review Date: 03/17/2019 Generated: 03/24/19 10:54 am Comments DCP- Discharge Planning Updated by [id number]: Monster Ramirez on 03/24/19 8:[address] Patient Name: CARLOS JOY Encounter No: [id number] : 1945 Primary Insurance: MEDICARE A & B Anticipated DC Date: 03-24-2019 Planned Disposition: Nursing Facility [facility] Cert External Planned Provider: [facility], LONG TERM CARE MEDICAID BED DCP follow-up note: CM CALLED AND SPOKE TO [facility], THEY WILL ACCEPT TODAY AND NEED PT THERE SOON POSSIBLE. THEY WILL ARRANGE TRANSPORTATION THIS [facility] FOR 1130AM. CM NOTIFIED MARY LOU JACKLYN FOR DISCHARGE ORDERS. CM NOTIFIED PT'S , IMPORTANT MESSAGE FROM MEDICARE PROVIDED AND EXPLAINED. CM TO FAX DISCHARGE INFORMATION TO [facility] AT [phone], NURSE REPORT TO BE CALLED TO [facility] AT [phone]. [facility] TO PROVIDE VAN TRANSPORTATION AT 1130. Painter And Decorator Apprentice: Monster Ramirez DCP- Discharge Planning Updated by [id number]: Monster Ramirez on 03/24/19 7:[address] Patient Name: CARLOS JOY Admission Status: ER Accout number: [id number] Admission Date: 03-17-2019 : 1945 Admission Diagnosis:COUGH Attending: NEDA WATERMAN Current LOS: 7 Anticipated DC Date: 03-24-2019 Planned Disposition: Nursing Facility [facility] Cert Primary Insurance: MEDICARE A & B PLANNED EXTERNAL PROVIDER: [facility], LONG TERM CARE MEDICAID BED DCP follow-up note: BOTH FACILITIES INFORMED CM CONFIRMED VIA CHART REVIEW THAT PT HAS BEEN OUT OF RESTRAINT FOR AT LEAST [address] F[address]ILITY[address] GUSTAFSON NOTIFIED. JANES OF [facility] NOTIFED CM THAT THEY WILL ACCEPT PT. CM WAITING FOR FACILITY TO CALL AND NOTIFY IF THEY WILL ACCEPT TODAY. WHEN NOTIFIED BY [facility] THAT THEY CAN PROVIDE TRANSPORTATION, NOTIFY DOCTOR FOR DISCHARGE ORDERS. CM TO FAX DISCHARGE INFORMATION TO [facility] AT [phone], NURSE REPORT TO BE CALLED TO [facility] AT [phone]. [facility] TO PROVIDE VAN TRANSPORTATION IF PT IS ABLE TO SIT SAFELY FOR TRANSPORT TO [place]. Painter And Decorator Apprentice: Monster Ramirez DCP- Discharge Planning Updated by [id number]: Monster Ramirez on 03/21/19 1:[address] Patient Name: CARLOS JOY Encounter No: [id number] : 1945 Primary Insurance: MEDICARE A & B Anticipated DC Date: 03-21-2019 Planned Disposition: Nursing Facility [facility] Cert External Planned Provider: [facility] OR [facility], SKILLED NURSING CARE MEDICAID BED DCP follow-up note: JANES AND HOLDEN OF [facility] ARRIVED, DELIVERED CAPACITY VERIFICATION FORM AND ASSESSED PT IN ROOM. [facility] ALSO EVALUATED PT AND MET WITH PT'S SPOUSE. CM SPOKE TO MARY LOU FORTUNE WHO COMPLETED CAPACITY FORM. CM FAXED CAPACITY FORM TO [facility]. BOTH FACILITIES INFORMED CM THAT PT MUST BE OUT OF RESTRAINT FOR AT LEAST 24 HOURS FOR PLACEMENT IN FACILITY. [facility] APPROVED. CM WAITING ADMISSION DETERMINATIONS FOR PLASTIC CUTTER CARE FROM [facility] AND [facility]. PATIENT MUST BE OUT OF RESTRAINT FOR AT LEAST 24 HOURS FOR PLACEMENT IN [facility]. Painter And Decorator Apprentice: Monster Ramirez DCP- Discharge Planning Updated by [id number]: Monster Ramirez on 03/21/19 6:[address] Patient Name: CARLOS JOY Encounter No: [id number] : 1945 Primary Insurance: MEDICARE A & B Anticipated DC Date: 03-21-2019 Planned Disposition: Nursing Facility [facility] Cert External Planned Provider: [facility] OR [facility], SKILLED NURSING CARE MEDICAID BED DCP follow-up note: CM FAXED REFERRAL UPDATES TO INCLUDE DEXTER LETTER OF NON PASRR TO BOTH [facility] AND [facility]. [facility]TER APPROVED. CM WAITING ADMISSION DETERMINATIONS FOR SKILLED NURSING CARE FROM [facility] AND [facility]. CM WAITING "CAPACITY VERIFICATION BY PHYSICIAN" FAX FOR PHYSICIAN TO COMPLETE FOR CM TO FAX BACK TO [facility]. Painter And Decorator Apprentice: Monster Ramirez DCP- Discharge Planning Updated by [id number]: Monster Ramirez on 03/20/19 3:[address] Patient Name: CARLOS JOY Encounter No: [id number] : 1945 Primary Insurance: MEDICARE A & B Anticipated DC Date: 03-21-2019 Planned Disposition: Nursing Facility [facility] Cert External Planned Provider: [facility] OR [facility], PLASTIC CUTTER CARE MEDICAID BED DCP follow-up note: CM RECEIVED CALL FROM [facility], , THEY ARE FAXING A FORM FOR THE DOCTOR TO COMPLETE AND SIGN REGARDING "CAPACITY VERIFICATION BY PHYSICIAN" REGARDING PATIENT. THIS WILL NEED TO BE COMPLETED AND RETURN. [facility] WAITING ON PT'S TO CALL THEM BACK TO DISCUSS ADMISSION. CM NOTIFIED PT'S TO CALL [facility]. DEXTER APPROVED. CM WAITING ADMISSION DETERMINATIONS FOR SKILLED NURSING CARE FROM [facility] AND [facility]. CM WAITING "CAPACITY VERIFICATION BY PHYSICIAN" FAX FOR PHYSICIAN TO COMPLETE FOR CM TO FAX BACK TO [facility]. Painter And Decorator Apprentice: Monster Ramirez DCP- Discharge Planning Updated by [email or web address]: Monster Ramirez on 03/20/19 12:[address] Patient Name: CARLOS JOY Encounter No: [id number] : 1945 Primary Insurance: MEDICARE A & B Anticipated DC Date: 03-21-2019 Planned Disposition: Nursing Facility [facility] Cert External Planned Provider: [facility] OR [facility], SKILLED NURSING CARE MEDICAID BED DCP follow-up note: CM RECEIVED DEXTER DETERMINATION, PT IS PASRR EXEMPT AND MAY ENTER PRISON HOME WHEN ACCEPTED. CM RECEIVED CALL FROM [facility], , THEY ARE CALLING PT'S SPOUSE TO DISCUSS PLASTIC CUTTER CARE AND ARE CONCERNED THAT PT MAY REFUSE DIALYSIS AND PT'S SPOUSE IS NOT WANTING HOSPICE. [facility] WILL CALL CM WHEN ADMISSION DETERMINATION IS MADE. CM SPOKE TO [facility], , THEY ARE CONSIDERING PT FOR PLASTIC CUTTER CARE. DEXTER APPROVED. CM WAITING ADMISSION DETERMINATIONS FOR SKILLED NURSING CARE FROM [facility] AND [facility]. Painter And Decorator Apprentice: Monster Ramirez DCP- Discharge Planning Updated by [email or web address]: Monster Ramirez on 03/20/19 7:[address] Patient Name: CARLOS JOY Encounter No: [id number] : 1945 Primary Insurance: MEDICARE A & B Anticipated DC Date: 03-21-2019 Planned Disposition: Care Home Facility External Planned Provider: [facility], PLASTIC CUTTER CARE MEDICAID BED DCP follow-up note: CM FAXED DEXTER ASSESSMENT WITH SUPPORTING MEDICAL DOCUMENTS TO [facility] [phone]. CM FAXED REFERRALS TO [facility], AND [facility], , FOR PLASTIC CUTTER CARE. CM WAITING D[facility]TER SCREENING DETERMINATION WELL ADMISSION DETERMINATIONS FOR PLASTIC CUTTER CARE FROM [facility] AND [facility]. Painter And Decorator Apprentice: Monster Ramirez DCP- Discharge Planning Updated by [id number]: Monster Ramirez on 03/19/19 4:[address] Patient Name: CARLOS JOY Admission Status: ER Accout number: [id number] Admission Date: 03-17-2019 : 1945 Admission Diagnosis:COUGH Attending: NEDA WATERMAN Current LOS: 2 Anticipated DC Date: 03-21-2019 Planned Disposition: Care Home Facility Primary Insurance: MEDICARE A & B PLANNED EXTERNAL PROVIDER: [facility] OR [facility], MEDICARE SKILLED BED Discharge Planning Comments: CM SPOKE TO DR. GUSTAFSON WHO HAS TALKED TO PT'S SPOUSE, SHE WILL NOW PLACE PT INTO NURSING FACILITY. CM MET WITH PT'S SPOUSE TO DISCUSS DISCHARGE PLANNING AND NEEDS. PT'S SPOUSE REPORTS PT HAS BEEN LIVING AT HOME DEPENDENTLY WITH HER BUT SHE IS NOT ABLE TO CARE FOR PT ANY LONGER. PT GRABS HER ARM AND WILL NOT LET GO AND REFUSES TO GO TO DIALYSIS. PT HAS DEMENTIA. SPOUSE WANTS PT PLACED FOR PLASTIC CUTTER CARE AT [facility] OR [facility] IN [place]. CHOICE SIGNED. IMPORTANT MESSAGE FROM MEDICARE PROVIDED AND EXPLAINED. CM COMPLETED DEXTER WITH PT'S SPOUSE'S ASSISTANCE. SIGNATURES OBTAINED FROM MARY LOU VILLASENOR. CM TO FAX DEXTER TO [facility] SOON POSSIBLE FOR DEXTER / STATE CLEARANCE TO ENTER PRISON FACILITY. CM TO FAX REFERRALS TO [facility] FOR SKILLED / PLASTIC CUTTER CARE SOON POSSIBLE. Painter And Decorator Apprentice: Monster Ramirez DCPIA - Discharge Planning Initial Assessment Updated by [id number]: Monster Ramirez on 03/19/19 5:03 pm * Is the patient Alert and Oriented? No * How many steps to enter\\exit or inside your home? * PCP ALYSIA MOMIN * Pharmacy [facility] OR [facility] * Preadmission Environment Home with Family * ADLs Partial Dependent * Partial ADLs (Assistance needed) Medication Management * Equipment Rolling Walker Wheelchair * Other Equipment NO MEDICAL EQUIPMENT PROVIDER PREFERENCE * List name and contact numbers for known caregivers / representatives who currently or will assist patient after discharge: WAYNE JOY, SPOUSE, * Verbal permission to speak to the caregivers and representatives has been obtained from the patient. N/A * Community resources currently utilized Other * Please name any agencies selected above. OUTPATIENT DIALYSIS, [facility] IN [place], [facility], 1130AM * Additional services required to return to the preadmission environment? Yes * Can the patient safely return to the preadmission environment? No * Has this patient been hospitalized within the prior 30 days at any hospital? No Coverage Notice Reviewer: [id number] Argenis Ramirez Notice Issued Date-Time: 03/19/2019 13:30 Notice Type: IM Discharge Notice Notice Delivered To: Family Member Relationship to Patient: Spouse Animal Science Instructor Name: WAYNE JOY Delivery Method: HAND - Hand Delivered Adriane Days: Prior Verbal Notification: Recipient Understood Notice: Yes Recipient Signature: Yes Med Rec Note Co-signed by Attending: Coverage Notice Comment: Reviewer: [id number] Argenis Ramirez Notice Issued Date-Time: 03/20/2019 13:30 Notice Type: Patient Choice Letter Notice Delivered To: Family Member Relationship to Patient: Spouse Animal Science Instructor Name: WAYNE JOY Delivery Method: HAND - Hand Delivered Adriane Days: Prior Verbal Notification: Recipient Understood Notice: Yes Recipient Signature: Yes Med Rec Note Co-signed by Attending: Coverage Notice Comment: [facility] Reviewer: [id number] Argenis Ramirez Notice Issued Date-Time: 03/24/2019 9:20 Notice Type: IM Discharge Notice Notice Delivered To: Family Member Relationship to Patient: Spouse Animal Science Instructor Name: WAYNE JOY Delivery Method: HAND - Hand Delivered Adriane Days: Prior Verbal Notification: Recipient Understood Notice: Yes Recipient Signature: Yes Med Rec Note Co-signed by Attending: Coverage Notice Comment: Last DP export: 03/24/19 7:04 a Patient Name: CARLOS JOY Page [id number] at 0954 All edits/amendments must be made on the electronic document DICTATION DATE: 03/24/19952 BOILER FITTER: SIMAEL 03/24/19952 RPT#: [id number] DC DATE: STATUS: ADM IN [facility] [address] [place] [address] END OF REPORT
--- NOTE | 2019-03-24 11:14 | MORECARE ---
CASE MANAGEMENT DISCHARGE SUMMARY PATIENT: CARLOS JOY UNIT: [id number] ADM DATE: 03/17/19 AGE: 73 : 41 SEX: M ROOM/BED: D.210 AUTHOR: MARTY,DOC PHYSICIAN: REFERRING PHYSICIAN: NEDA WATERMAN MD DATE OF SERVICE: 03/24/19 Discharge Plan Patient Name: CARLOS JOY Facility: [facility]:[place] : 1945 Planned Disposition: Nursing Facility [facility] Cert Anticipated Discharge Date: 03/24/19 Discharge Date: Expected LOS: 7 Initial Reviewer: [id number] Initial Review Date: 03/17/2019 Generated: 03/24/19 12:13 pm Comments DCP- Discharge Planning Updated by [id number]: Monster Ramirez on 03/24/19 10:[address] Patient Name: CARLOS JOY Encounter No: [id number] : 1945 Primary Insurance: MEDICARE A & B Anticipated DC Date: 03-24-2019 Planned Disposition: Nursing Facility [facility] Cert External Planned Provider: [facility], LONG TERM CARE MEDICAID BED DCP follow-up note: CM CALLED AND SPOKE TO [facility], THEY WILL ACCEPT TODAY AND NEED PT THERE SOON POSSIBLE. THEY WILL ARRANGE TRANSPORTATION THIS [facility] FOR 1130AM. CM NOTIFIED MARY LOU JACKLYN FOR DISCHARGE ORDERS. CM NOTIFIED PT'S , IMPORTANT MESSAGE FROM MEDICARE PROVIDED AND EXPLAINED. CM TO FAX DISCHARGE INFORMATION TO [facility] AT [phone], NURSE REPORT TO BE CALLED TO [facility] AT [phone]. [facility] TO PROVIDE VAN TRANSPORTATION AT 1130. Supervisor Counseling And Guidance: Monster Ramirez Appended by Monster Ramirez on 03/24/2019 11:10 CDT: NANCY FAXED DISCHARGE INFORMATION TO [facility] AT [phone], NURSE REPORT TO BE CALLED TO [facility] AT [phone]. [facility] TO PROVIDE VAN TRANSPORTATION AT 1130. Supervisor Counseling And Guidance: Monster Ramirez DCP- Discharge Planning Updated by [id number]: Monster Ramirez on 03/24/19 7:[address] Patient Name: CARLOS JOY Admission Status: ER Accout number: [id number] Admission Date: 03-17-2019 : 1945 Admission Diagnosis:COUGH Attending: NEDA WATERMAN Current LOS: 7 Anticipated DC Date: 03-24-2019 Planned Disposition: Nursing Facility [facility] Cert Primary Insurance: MEDICARE A & B PLANNED EXTERNAL PROVIDER: [facility], REGISTERED TRAVEL NURSE CARE MEDICAID BED DCP follow-up note: BOTH FACILITIES INFORMED CM CONFIRMED VIA CHART REVIEW THAT PT HAS BEEN OUT OF RESTRAINT FOR AT LEAST [address] F[address]ILITY[address] GUSTAFSON NOTIFIED. JANES OF [facility] NOTIFED CM THAT THEY WILL ACCEPT PT. CM WAITING FOR FACILITY TO CALL AND NOTIFY IF THEY WILL ACCEPT TODAY. WHEN NOTIFIED BY [facility] THAT THEY CAN PROVIDE TRANSPORTATION, NOTIFY DOCTOR FOR DISCHARGE ORDERS. CM TO FAX DISCHARGE INFORMATION TO [facility] AT [phone], NURSE REPORT TO BE CALLED TO [facility] AT [phone]. [facility] TO PROVIDE VAN TRANSPORTATION IF PT IS ABLE TO SIT SAFELY FOR TRANSPORT TO [place]. Supervisor Counseling And Guidance: Monster Ramirez DCP- Discharge Planning Updated by [id number]: Monster Ramirez on 03/21/19 1:[address] Patient Name: CARLOS JOY Encounter No: [id number] : 1945 Primary Insurance: MEDICARE A & B Anticipated DC Date: 03-21-2019 Planned Disposition: Nursing Facility [facility] Cert External Planned Provider: [facility] OR [facility], GROUP HOME CARE MEDICAID BED DCP follow-up note: JANES AND HOLDEN OF [facility] ARRIVED, DELIVERED CAPACITY VERIFICATION FORM AND ASSESSED PT IN ROOM. [facility] ALSO EVALUATED PT AND MET WITH PT'S SPOUSE. CM SPOKE TO MARY LOU FORTUNE WHO COMPLETED CAPACITY FORM. CM FAXED CAPACITY FORM TO [facility]. BOTH FACILITIES INFORMED CM THAT PT MUST BE OUT OF RESTRAINT FOR AT LEAST 24 HOURS FOR PLACEMENT IN FACILITY. [facility] APPROVED. CM WAITING ADMISSION DETERMINATIONS FOR REGISTERED TRAVEL NURSE CARE FROM [facility] AND [facility]. PATIENT MUST BE OUT OF RESTRAINT FOR AT LEAST 24 HOURS FOR PLACEMENT IN [facility]UST[facility]. Supervisor Counseling And Guidance: Monster Ramirez DCP- Discharge Planning Updated by [id number]: Monster Ramirez on 03/21/19 6:[address] Patient Name: CARLOS JOY Encounter No: [id number] : 1945 Primary Insurance: MEDICARE A & B Anticipated DC Date: 03-21-2019 Planned Disposition: Nursing Facility [facility] Cert External Planned Provider: [facility] OR [facility], GROUP HOME CARE MEDICAID BED DCP follow-up note: CM FAXED REFERRAL UPDATES TO INCLUDE DEXTER LETTER OF NON PASRR TO BOTH [facility] AND [facility]. [facility] APPROVED. CM WAITING ADMISSION DETERMINATIONS FOR GROUP HOME CARE FROM [facility] AND [facility]. CM WAITING "CAPACITY VERIFICATION BY PHYSICIAN" FAX FOR PHYSICIAN TO COMPLETE FOR CM TO FAX BACK TO [facility]. Supervisor Counseling And Guidance: Monster Ramirez DCP- Discharge Planning Updated by [id number]: Mosnter Ramirez on 03/20/19 3:[address] Patient Name: CARLOS JOY Encounter No: [id number] : 1945 Primary Insurance: MEDICARE A & B Anticipated DC Date: 03-21-2019 Planned Disposition: Nursing Facility [facility] Cert External Planned Provider: [facility] OR [facility], GROUP HOME CARE MEDICAID BED DCP follow-up note: CM RECEIVED CALL FROM [facility], , THEY ARE FAXING A FORM FOR THE DOCTOR TO COMPLETE AND SIGN REGARDING "CAPACITY VERIFICATION BY PHYSICIAN" REGARDING PATIENT. THIS WILL NEED TO BE COMPLETED AND RETURN. [facility] WAITING ON PT'S TO CALL THEM BACK TO DISCUSS ADMISSION. CM NOTIFIED PT'S TO CALL [facility]. [facility] APPROVED. CM WAITING ADMISSION DETERMINATIONS FOR GROUP HOME CARE FROM [facility] AND [facility]. CM WAITING "CAPACITY VERIFICATION BY PHYSICIAN" FAX FOR PHYSICIAN TO COMPLETE FOR CM TO FAX BACK TO [facility]. Supervisor Counseling And Guidance: Monster aRmirez DCP- Discharge Planning Updated by [id number]: Monster Ramirez on 03/20/19 12:[address] Patient Name: CARLOS JOY Encounter No: [id number] : 1945 Primary Insurance: MEDICARE A & B Anticipated DC Date: 03-21-2019 Planned Disposition: Nursing Facility [facility] Cert External Planned Provider: [facility] OR [facility], GROUP HOME CARE MEDICAID BED DCP follow-up note: CM RECEIVED [facility] DETERMINATION, PT IS PASRR EXEMPT AND MAY ENTER [facility] WHEN ACCEPTED. CM RECEIVED CALL FROM [facility] OF [facility], , THEY ARE CALLING PT'S SPOUSE TO DISCUSS GROUP HOME CARE AND ARE CONCERNED THAT PT MAY REFUSE DIALYSIS AND PT'S SPOUSE IS NOT WANTING HOSPICE. [facility] WILL CALL CM WHEN ADMISSION DETERMINATION IS MADE. CM SPOKE TO [facility] OF [facility], , THEY ARE CONSIDERING PT FOR GROUP HOME CARE. [facility] APPROVED. CM WAITING ADMISSION DETERMINATIONS FOR GROUP HOME CARE FROM [facility] AND [facility]. Supervisor Counseling And Guidance: Monster Ramirez DCP- Discharge Planning Updated by [id number]: Monster Ramirez on 03/20/19 7:[address] Patient Name: CARLOS JOY Encounter No: [id number] : 1945 Primary Insurance: MEDICARE A & B Anticipated DC Date: 03-21-2019 Planned Disposition: Custodial Facility External Planned Provider: [facility] OR [facility], GROUP HOME CARE MEDICAID BED DCP follow-up note: CM FAXED DEXTER ASSESSMENT WITH SUPPORTING MEDICAL DOCUMENTS TO [facility] [phone]. CM FAXED REFERRALS TO [facility], AND [facility], , FOR GROUP HOME CARE. CM WAITING [facility] SCREENING DETERMINATION WELL ADMISSION DETERMINATIONS FOR REGISTERED TRAVEL NURSE CARE FROM [facility] AND [facility]. Supervisor Counseling And Guidance: Monster Ramirez DCP- Discharge Planning Updated by [id number]: Monster Ramirez on 03/19/19 4:[address] Patient Name: CARLOS JOY Admission Status: ER Accout number: [id number] Admission Date: 03-17-2019 : 1945 Admission Diagnosis:COUGH Attending: NEDA WATERMAN Current LOS: 2 Anticipated DC Date: 03-21-2019 Planned Disposition: Custodial Facility Primary Insurance: MEDICARE A & B PLANNED EXTERNAL PROVIDER: [facility] OR [facility], MEDICARE SKILLED BED Discharge Planning Comments: CM SPOKE TO DR. GUSTAFSON WHO HAS TALKED TO PT'S SPOUSE, SHE WILL NOW PLACE PT INTO NURSING FACILITY. CM MET WITH PT'S SPOUSE TO DISCUSS DISCHARGE PLANNING AND NEEDS. PT'S SPOUSE REPORTS PT HAS BEEN LIVING AT HOME DEPENDENTLY WITH HER BUT SHE IS NOT ABLE TO CARE FOR PT ANY LONGER. PT GRABS HER ARM AND WILL NOT LET GO AND REFUSES TO GO TO DIALYSIS. PT HAS DEMENTIA. SPOUSE WANTS PT PLACED FOR GROUP HOME CARE AT [facility] OR [facility] IN [place]. CHOICE SIGNED. IMPORTANT MESSAGE FROM MEDICARE PROVIDED AND EXPLAINED. CM COMPLETED DEXTER WITH PT'S SPOUSE'S ASSISTANCE. SIGNATURES OBTAINED FROM MARY LOU VILLASENOR. CM TO FAX DEXTER TO [facility] SOON POSSIBLE FOR [facility]EXTER / STATE CLEARANCE TO ENTER [facility]. CM TO FAX REFERRALS TO [facility] AND [facility] FOR SKILLED / GROUP HOME CARE SOON POSSIBLE. Supervisor Counseling And Guidance: Monster Ramirez DCPIA - Discharge Planning Initial Assessment Updated by [email or web address]: Monster Ramirez on 03/19/19 5:03 pm * Is the patient Alert and Oriented? No * How many steps to enter\\exit or inside your home? * PCP DR. SOLIS, [place] * Pharmacy [facility] * Preadmission Environment Home with Family * ADLs Partial Dependent * Partial ADLs (Assistance needed) Medication Management * Equipment Rolling Walker Wheelchair * Other Equipment NO MEDICAL EQUIPMENT PROVIDER PREFERENCE * List name and contact numbers for known caregivers / representatives who currently or will assist patient after discharge: WAYNE JOY, SPOUSE, * Verbal permission to speak to the caregivers and representatives has been obtained from the patient. N/A * Community resources currently utilized Other * Please name any agencies selected above. OUTPATIENT DIALYSIS, [facility] IN [place], [facility], 1130AM * Additional services required to return to the preadmission environment? Yes * Can the patient safely return to the preadmission environment? No * Has this patient been hospitalized within the prior 30 days at any hospital? No Coverage Notice Reviewer: [id number] Ramirez Notice Issued Date-Time: 03/19/2019 13:30 Notice Type: IM Discharge Notice Notice Delivered To: Family Member Relationship to Patient: Spouse Bobcat Driver/Labor Name: WAYNE JOY Delivery Method: HAND - Hand Delivered Adriane Days: Prior Verbal Notification: Recipient Understood Notice: Yes Recipient Signature: Yes Med Rec Note Co-signed by Attending: Coverage Notice Comment: Reviewer: ERIKA Ramirez Notice Issued Date-Time: 03/20/2019 13:30 Notice Type: Patient Choice Letter Notice Delivered To: Family Member Relationship to Patient: Spouse Bobcat Driver/Labor Name: WAYNE JOY Delivery Method: HAND - Hand Delivered Adriane Days: Prior Verbal Notification: Recipient Understood Notice: Yes Recipient Signature: Yes Med Rec Note Co-signed by Attending: Coverage Notice Comment: [facility] Reviewer: [id number] Argenis Ramirez Notice Issued Date-Time: 03/24/2019 9:20 Notice Type: IM Discharge Notice Notice Delivered To: Family Member Relationship to Patient: Spouse Bobcat Driver/Labor Name: WAYNE JOY Delivery Method: HAND - Hand Delivered Adriane Days: Prior Verbal Notification: Recipient Understood Notice: Yes Recipient Signature: Yes Med Rec Note Co-signed by Attending: Coverage Notice Comment: Last DP export: 03/24/19 8:54 a Patient Name: CARLOS JOY Page [id number] at 1114 All edits/amendments must be made on the electronic document DICTATION DATE: 03/24/19 1113 INSULATOR APPRENTICE: ISMAEL 03/24/19 1113 RPT#: [id number] DC DATE: STATUS: ADM IN [facility] [address] [place] [address] END OF REPORT
--- NOTE | 2019-03-24 11:56 | NUR ---
DC PAPERWORK GONE OVER AND SIGNED WITH PT AND . ALL QUESTIONS ANSWERED. REPORT CALLED TO [facility]. TRANSPORT VAN FROM FACILITY CAME TO PICK PT UP. ALL VALUBLES REMOVED FROM ROOM.
--- NOTE | 2019-03-24 16:55 | MORECARE ---
CASE MANAGEMENT DISCHARGE SUMMARY PATIENT: CARLOS JOY UNIT: [id number] ADM DATE: 03/17/19 AGE: 73 : 43 SEX: M ROOM/BED: D.2106 AUTHOR: MARTY,DOC PHYSICIAN: REFERRING PHYSICIAN: NEDA WATERMAN MD DATE OF SERVICE: 03/24/19 Discharge Plan Patient Name: CARLOS JOY Facility: [facility]:[place] : 1945 Planned Disposition: Nursing Facility [facility] Cert Anticipated Discharge Date: 03/24/19 Discharge Date: 03/24/2019 Expected LOS: 7 Initial Reviewer: ERIKA Initial Review Date: 03/17/2019 Generated: 03/24/19 5:54 pm Comments DCP- Discharge Planning Updated by ERIKA: Monster Ramirez on 03/24/19 10:[address] Patient Name: CARLOS JOY Encounter No: [id number] : 1945 Primary Insurance: MEDICARE A & B Anticipated DC Date: 03-24-2019 Planned Disposition: Nursing Facility [facility] Cert External Planned Provider: [facility], LONG TERM CARE MEDICAID BED DCP follow-up note: CM CALLED AND SPOKE TO [facility], THEY WILL ACCEPT TODAY AND NEED PT THERE SOON POSSIBLE. THEY WILL ARRANGE TRANSPORTATION THIS MORINING FOR 1130AM. CM NOTIFIED MARY LOU JACKLYN FOR DISCHARGE ORDERS. CM NOTIFIED PT'S , IMPORTANT MESSAGE FROM MEDICARE PROVIDED AND EXPLAINED. CM TO FAX DISCHARGE INFORMATION TO [facility] AT [phone], NURSE REPORT TO BE CALLED TO [facility] AT [phone]. [facility] TO PROVIDE VAN TRANSPORTATION AT 1130. Sap Payroll Consultant: Monster Ramirez Appended by Monster Ramirez on 03/24/2019 11:10 CDT: CM FAXED DISCHARGE INFORMATION TO [facility] AT [phone], NURSE REPORT TO BE CALLED TO [facility] AT [phone]. [facility] TO PROVIDE VAN TRANSPORTATION AT 1130. Sap Payroll Consultant: Monster Ramirez DCP- Discharge Planning Updated by [id number]: Monster Ramirez on 03/24/19 7:[address] Patient Name: CARLOS JOY Admission Status: ER Accout number: [id number] Admission Date: 03-17-2019 : 1945 Admission Diagnosis:COUGH Attending: NEDA WATERMAN Current LOS: 7 Anticipated DC Date: 03-24-2019 Planned Disposition: Nursing Facility [facility] Cert Primary Insurance: MEDICARE A & B PLANNED EXTERNAL PROVIDER: [facility], REGISTRY RN CARE MEDICAID BED DCP follow-up note: BOTH FACILITIES INFORMED CM CONFIRMED VIA CHART REVIEW THAT PT HAS BEEN OUT OF RESTRAINT FOR AT LEAST [address] IN FACILITY[address] GUSTAFSON NOTIFIED. JANES OF [facility] NOTIFED CM THAT THEY WILL ACCEPT PT. CM WAITING FOR FACILITY TO CALL AND NOTIFY IF THEY WILL ACCEPT TODAY. WHEN NOTIFIED BY [facility] THAT THEY CAN PROVIDE TRANSPORTATION, NOTIFY DOCTOR FOR DISCHARGE ORDERS. CM TO FAX DISCHARGE INFORMATION TO [facility] AT [phone], NURSE REPORT TO BE CALLED TO [facility] AT [phone]. [facility] TO PROVIDE VAN TRANSPORTATION IF PT IS ABLE TO SIT SAFELY FOR TRANSPORT TO [place]. Sap Payroll Consultant: Monster Ramirez DCP- Discharge Planning Updated by [id number]: Monster Ramirez on 03/21/19 1:[address] Patient Name: CARLOS JOY Encounter No: [id number] : 1945 Primary Insurance: MEDICARE A & B Anticipated DC Date: 03-21-2019 Planned Disposition: Nursing Facility [facility] External Planned Provider: [facility] OR [facility], SENIOR LIVING CARE MEDICAID BED DCP follow-up note: JANES AND HOLDEN OF [facility] ARRIVED, DELIVERED CAPACITY VERIFICATION FORM AND ASSESSED PT IN ROOM. [facility] ALSO EVALUATED PT AND MET WITH PT'S SPOUSE. CM SPOKE TO MARY LOU FORTUNE WHO COMPLETED CAPACITY FORM. CM FAXED CAPACITY FORM TO [facility]. BOTH FACILITIES INFORMED CM THAT PT MUST BE OUT OF RESTRAINT FOR AT LEAST 24 HOURS FOR PLACEMENT IN FACILITY. [facility] APPROVED. CM WAITING ADMISSION DETERMINATIONS FOR REGISTRY RN CARE FROM [facility] AND [facility]. PATIENT MUST BE OUT OF RESTRAINT FOR AT LEAST 24 HOURS FOR PLACEMENT IN [facility]. Sap Payroll Consultant: Monster Ramirez DCP- Discharge Planning Updated by [id number]: Monster Ramirez on 03/21/19 6:[address] Patient Name: CARLOS JOY Encounter No: [id number] : 1945 Primary Insurance: MEDICARE A & B Anticipated DC Date: 03-21-2019 Planned Disposition: Nursing Facility [facility] Cert External Planned Provider: [facility] OR [facility], REGISTRY RN CARE MEDICAID BED DCP follow-up note: CM FAXED REFERRAL UPDATES TO INCLUDE DEXTER LETTER OF NON PASRR TO BOTH [facility] AND [facility]. [facility] APPROVED. CM WAITING ADMISSION DETERMINATIONS FOR SENIOR LIVING CARE FROM [facility] AND [facility]. CM WAITING "CAPACITY VERIFICATION BY PHYSICIAN" FAX FOR PHYSICIAN TO COMPLETE FOR CM TO FAX BACK TO [facility]. Sap Payroll Consultant: Monster Ramirez DCP- Discharge Planning Updated by [id number]: Monster Ramirez on 03/20/19 3:[address] Patient Name: CARLOS JOY Encounter No: [id number] : 1945 Primary Insurance: MEDICARE A & B Anticipated DC Date: 03-21-2019 Planned Disposition: Nursing Facility [facility] Cert External Planned Provider: [facility] OR [facility], REGISTRY RN CARE MEDICAID BED DCP follow-up note: CM RECEIVED CALL FROM [facility], , THEY ARE FAXING A FORM FOR THE DOCTOR TO COMPLETE AND SIGN REGARDING "CAPACITY VERIFICATION BY PHYSICIAN" REGARDING PATIENT. THIS WILL NEED TO BE COMPLETED AND RETURN. [facility] WAITING ON PT'S TO CALL THEM BACK TO DISCUSS ADMISSION. CM NOTIFIED PT'S TO CALL [facility]. [facility] APPROVED. CM WAITING ADMISSION DETERMINATIONS FOR REGISTRY RN CARE FROM [facility] AND [facility]. CM WAITING "CAPACITY VERIFICATION BY PHYSICIAN" FAX FOR PHYSICIAN TO COMPLETE FOR CM TO FAX BACK TO [facility]. Sap Payroll Consultant: Monster Ramirez DCP- Discharge Planning Updated by [id number]: Monster Ramirez on 03/20/19 12:[address] Patient Name: CARLOS JOY Encounter No: [id number] : 1945 Primary Insurance: MEDICARE A & B Anticipated DC Date: 03-21-2019 Planned Disposition: Nursing Facility [facility] Cert External Planned Provider: [facility] OR [facility], REGISTRY RN CARE MEDICAID BED DCP follow-up note: CM RECEIVED [facility] DETERMINATION, PT IS PASRR EXEMPT AND MAY ENTER LONGTERM HOME WHEN ACCEPTED. CM RECEIVED CALL FROM SUM[facility] OF [facility], , THEY ARE CALLING PT'S SPOUSE TO DISCUSS SENIOR LIVING CARE AND ARE CONCERNED THAT PT MAY REFUSE DIALYSIS AND PT'S SPOUSE IS NOT WANTING HOSPICE. [facility] WILL CALL CM WHEN ADMISSION DETERMINATION IS MADE. CM SPOKE TO CLARE OF [facility], , THEY ARE CONSIDERING PT FOR REGISTRY RN CARE. [facility] APPROVED. CM WAITING ADMISSION DETERMINATIONS FOR REGISTRY RN CARE FROM [facility] AND [facility]. Sap Payroll Consultant: Monster Ramirez DCP- Discharge Planning Updated by [id number]: Monster Ramirez on 03/20/19 7:[address] Patient Name: CARLOS JOY Encounter No: [id number] : 1945 Primary Insurance: MEDICARE A & B Anticipated DC Date: 03-21-2019 Planned Disposition: Senior Living Facility External Planned Provider: [facility] OR [facility], SENIOR LIVING CARE MEDICAID BED DCP follow-up note: CM FAXED DEXTER ASSESSMENT WITH SUPPORTING MEDICAL DOCUMENTS TO [facility] [phone]. CM FAXED REFERRALS TO [facility], AND [facility], , FOR REGISTRY RN CARE. CM WAITING [facility] SCREENING DETERMINATION WELL ADMISSION DETERMINATIONS FOR SENIOR LIVING CARE FROM [facility] AND [facility]. Sap Payroll Consultant: Monster Ramirez DCP- Discharge Planning Updated by [id number]: Monster Ramirez on 03/19/19 4:[address] Patient Name: CARLOS JOY Admission Status: ER Accout number: [id number] Admission Date: 03-17-2019 : 1945 Admission Diagnosis:COUGH Attending: NEDA WATERMAN Current LOS: 2 Anticipated DC Date: 03-21-2019 Planned Disposition: Senior Living Facility Primary Insurance: MEDICARE A & B PLANNED EXTERNAL PROVIDER: [facility] OR [facility], MEDICARE SKILLED BED Discharge Planning Comments: CM SPOKE TO DR. GUSTAFSON WHO HAS TALKED TO PT'S SPOUSE, SHE WILL NOW PLACE PT INTO NURSING FACILITY. CM MET WITH PT'S SPOUSE TO DISCUSS DISCHARGE PLANNING AND NEEDS. PT'S SPOUSE REPORTS PT HAS BEEN LIVING AT HOME DEPENDENTLY WITH HER BUT SHE IS NOT ABLE TO CARE FOR PT ANY LONGER. PT GRABS HER ARM AND WILL NOT LET GO AND REFUSES TO GO TO DIALYSIS. PT HAS DEMENTIA. SPOUSE WANTS PT PLACED FOR SENIOR LIVING CARE AT [facility] OR [facility] IN [place]. CHOICE SIGNED. IMPORTANT MESSAGE FROM MEDICARE PROVIDED AND EXPLAINED. CM COMPLETED DEXTER WITH PT'S SPOUSE'S ASSISTANCE. SIGNATURES OBTAINED FROM MARY LOU VILLASENOR. CM TO FAX D[facility]TER TO [facility] SOON POSSIBLE FOR DEXTER / STATE CLEARANCE TO ENTER LONGTERM FACILITY. CM TO FAX REFERRALS TO [facility] AND [facility] FOR SKILLED / REGISTRY RN CARE SOON POSSIBLE. Sap Payroll Consultant: Monster Ramirez DCPIA - Discharge Planning Initial Assessment Updated by [id number]: Monster Ramirez on 03/19/19 5:03 pm * Is the patient Alert and Oriented? No * How many steps to enter\\exit or inside your home? * PCP DR. SOLIS, [place] * Pharmacy [facility] OR [facility] * Preadmission Environment Home with Family * ADLs Partial Dependent * Partial ADLs (Assistance needed) Medication Management * Equipment Rolling Walker Wheelchair * Other Equipment NO MEDICAL EQUIPMENT PROVIDER PREFERENCE * List name and contact numbers for known caregivers / representatives who currently or will assist patient after discharge: WAYNE JOY, SPOUSE, * Verbal permission to speak to the caregivers and representatives has been obtained from the patient. N/A * Community resources currently utilized Other * Please name any agencies selected above. OUTPATIENT DIALYSIS, [facility] IN [place], TTS, 1130AM * Additional services required to return to the preadmission environment? Yes * Can the patient safely return to the preadmission environment? No * Has this patient been hospitalized within the prior 30 days at any hospital? No Coverage Notice Reviewer: [id number] Argenis Ramirez Notice Issued Date-Time: 03/19/2019 13:30 Notice Type: IM Discharge Notice Notice Delivered To: Family Member Relationship to Patient: Spouse Irrigationist Designer Name: WAYNE JOY Delivery Method: HAND - Hand Delivered Adriane Days: Prior Verbal Notification: Recipient Understood Notice: Yes Recipient Signature: Yes Med Rec Note Co-signed by Attending: Coverage Notice Comment: Reviewer: [id number] Argenis Ramirez Notice Issued Date-Time: 03/20/2019 13:30 Notice Type: Patient Choice Letter Notice Delivered To: Family Member Relationship to Patient: Spouse Irrigationist Designer Name: WAYNE JOY Delivery Method: HAND - Hand Delivered Adriane Days: Prior Verbal Notification: Recipient Understood Notice: Yes Recipient Signature: Yes Med Rec Note Co-signed by Attending: Coverage Notice Comment: [facility] Reviewer: [id number] Argenis Ramirez Notice Issued Date-Time: 03/24/2019 9:20 Notice Type: IM Discharge Notice Notice Delivered To: Family Member Relationship to Patient: Spouse Irrigationist Designer Name: WAYNE JOY Delivery Method: HAND - Hand Delivered Adriane Days: Prior Verbal Notification: Recipient Understood Notice: Yes Recipient Signature: Yes Med Rec Note Co-signed by Attending: Coverage Notice Comment: Last DP export: 03/24/19 10:14 a Patient Name: CARLOS JOY Page [id number] at 1655 All edits/amendments must be made on the electronic document DICTATION DATE: 03/24/191653 SAP FICO BUSINESS ANALYST: ISMAEL 03/24/191653 RPT#: [id number] DC DATE:03/24/19 STATUS: DIS IN [facility] [address] [place] [address] END OF REPORT
== END 2019-03-24 11:58 | DRG 640 ==
LOC: D.ER 15:22 → D.M2 17:48
PROVIDERS: Family Medicine; Internal Medicine Nephrology; ADMIT Internal Medicine; ATTEND Internal Medicine
PROC: 5A1D70Z Performance of Urinary Filtration, Intermittent, Less than 6 Hours Per Day (ICD-10-PCS; principal; 2019-03-18)
DX: E87.5 Hyperkalemia (principal); N18.6 End stage renal disease; G93.41 Metabolic encephalopathy; I13.2 Hypertensive heart and chronic kidney disease with heart failure and with stage 5 chronic kidney disease, or end stage renal disease; N17.9 Acute kidney failure, unspecified; F02.81 Dementia in other diseases classified elsewhere, unspecified severity, with behavioral disturbance; Z99.2 Dependence on renal dialysis; Z91.15 Patient's noncompliance with renal dialysis; I50.9 Heart failure, unspecified; E11.22 Type 2 diabetes mellitus with diabetic chronic kidney disease; D63.1 Anemia in chronic kidney disease; G30.9 Alzheimer's disease, unspecified; I25.10 Atherosclerotic heart disease of native coronary artery without angina pectoris; Z86.73 Personal history of transient ischemic attack (TIA), and cerebral infarction without residual deficits

== ENCOUNTER 2019-06-10 03:02 | Inpatient (IN) | payer MEDICARE ==
[~2019-06-10] VITALS: Ht 193 cm; Wt 68.0 kg
[~2019-06-10 03:02] MED LIST changes: +IMODIUM2 MG PO; +LEVOXYL50 MCG PO; +LIPITOR10 MG PO; +LOPRESSOR25 MG PO; +NASONEX NASAL S17 GM NS; +NEURONTIN 300300 MG PO; +NITROSTAT0.4 MG SL; +PROMACTA25 MG PO; +VERELAN180 MG PO
[2019-06-10] MEDS ORDERED: DIPROLENE 0.05%50 GM (03:08)
[2019-06-10] MEDS ORDERED: LIPITOR10 MG PO (03:10)
[2019-06-10] MEDS ORDERED: TOPROL XL25 MG PO (03:10)
[2019-06-10] MEDS ORDERED: SYNTHROID50 MCG PO (03:11)
[2019-06-10] MEDS ORDERED: ALBUTEROL SULF8.5 GM INH (03:13)
[2019-06-10 03:51] LABS: CALCIUM 10.4 mg/dL (8.5-10.1); POTASSIUM - SERUM 5.9 mmol/L (3.5-5.1)
[2019-06-10 03:53] LABS: MAGNESIUM - SERUM 4.4 mg/dL (1.8-2.4); TROPONIN-I 0.072 ng/mL (0.000-0.060)
[2019-06-10 04:21] LABS: APPEARANCE CLEAR (CLEAR); BILIRUBIN NEGATIVE (NEGATIVE); COLOR YELLOW (YELLOW); GLUCOSE NEGATIVE (NEGATIVE); KETONE NEGATIVE (NEGATIVE); NITRITE NEGATIVE (NEGATIVE); PROTEIN 3+ mg/dL (NEGATIVE); SPECIFIC GRAVITY 1.005 (1.005-1.020); UROBILINOGEN NORMAL (NORMAL)
[2019-06-10 04:23] LABS: BACTERIA FEW /hpf (NEGATIVE); EPITHELIAL CELLS 0-5 /hpf (0-5); RED CELLS - URINE 0-5 /hpf (0-5); WHITE CELLS - URINE 0-5 /hpf (NEGATIVE)
--- NOTE | 2019-06-10 06:09 | NUR ---
RECEIVED REPORT FROM EUGENE CLIFFORD IN ER. ARRIVED TO FLOOR ON STRETCHER. REQUIRED 4 PEOPLE TO TRANSFER TO BED. EYES OPEN AND NON RESPONSIVE. HX OF DEMENTIA. UNABLE TO ANSWER ANY QUESTIONS. WILL REPORT TO [facility]. IV TO RIGHT HAND AND LEFT ARM RESERVED D/T AVF. HAS TREMORS TO BODY.
[2019-06-10 06:26] VITALS: BP 120/72; BMI 18.3
--- NOTE | 2019-06-10 07:20 | NUR ---
RECIEVE REPORT. CONFUSED. RESTLESS IN BED. TRYING TO CLIMB OUT OF BED. ATTEMPT TO REORIENT UNSUCCESSFUL. BED ALARM ON. CONTINUE PLAN OF CARE AND SAFETY PRECAUTIONS.
[2019-06-10 10:57] VITALS: BP 96/76
[2019-06-10 12:00] VITALS: BP 94/59
[2019-06-10 13:59] VITALS: Ht 193 cm; Wt 68.0 kg
[2019-06-10] MEDS ORDERED: KEPPRA500 MG PO (17:30)
[2019-06-10 18:32] VITALS: BP 98/50
[2019-06-10 20:00] VITALS: BP 153/68
--- NOTE | 2019-06-10 20:03 | NUR ---
I HAVE VISUAL OBSERVED PT A FEW TIMES SINCE START OF SHIFT PT HAS BEEN CLEANED OF INC BOWEL AT THIS TIME AND BED IS LOW AND LOCKED SKIN WARM AND DRY ... IS AT BEDSIDE AND MAKING LOTS OF REQUESTS FOR HER SELF I HAD TO EXPLAIN THAT WE DID NOT HAVE PAJAMAS THAT SHE COULD USE WHILE SHE WAS HERE SHE TOLD ME THAT WHAT I SAID WAS UNHEARD OF SHE IS NOW INSISTING TO ATLEAST BE PROVIDED A HOSPITAL GOWN TO CHANGE INTO
[2019-06-11 00:27] VITALS: BP 139/74
--- NOTE | 2019-06-11 04:19 | NUR ---
I have reviewed this patient and I concur with the Shift Assessment completed by the Licensed Practical Nurse today this shift.
[2019-06-11 04:30] VITALS: BP 140/60
[2019-06-11 08:32] VITALS: BP 160/75
[2019-06-11 08:58] LABS: ANION GAP 8.4 mmol/L (8-16); CALCIUM 9.6 mg/dL (8.5-10.1); CARBON DIOXIDE 36.7 mmol/L (21.0-32.0); CREATININE - SERUM 6.7 mg/dL (0.6-1.3); POTASSIUM - SERUM 4.1 mmol/L (3.5-5.1)
[2019-06-11 09:50] LABS: BASOPHILS 0.6 % (0-2); EOSINOPHILS 4.6 % (0-7); HEMATOCRIT 28.1 % (42.0-54.0); HEMOGLOBIN 9.1 g/dL (13.5-17.5); IMMATURE GRANULOCYTES 0.2 % (0-5); LYMPHOCYTES 12.2 % (15-50); MCH 27.1 pg (26.0-34.0); MCHC 32.4 g/dL (31.0-37.0); MCV 83.6 fL (80.0-100.0); MEAN PLATELET VOLUME 9.1 fL (7.4-10.4); MONOCYTES 13.1 % (2-11); NEUTROPHILS 69.3 % (40-80); PLATELET COUNT 183 10x3/uL (130-400); RBC 3.36 10x6/uL (4.20-6.10); RDW 16.5 % (11.5-14.5); WBC 5.4 10x3/uL (4.8-10.8)
--- NOTE | 2019-06-11 09:56 | NUR ---
CALLED TO ROOM PER CALL LIGHT. PATIENT IS JUST STARING AT CEILING, MOVES EYES WHEN TOUCH. IS IN HOSPITAL GOWN AND REQUESTING TOWELS AND WASHCLOTHS FOR HERSLEF FOR SHOWER. GIVEN. SHE DENIES ANY NEEDS FOR HIM (PATIENT) AT THIS TIME.
[2019-06-11 11:51] VITALS: BP 143/67
--- NOTE | 2019-06-11 13:05 | MORECARE ---
CASE MANAGEMENT DISCHARGE SUMMARY PATIENT: CARLOS JOY UNIT: [id number] ADM DATE: 06/10/19 AGE: 73 : 43 SEX: M ROOM/BED: D.2113 AUTHOR: MARTY,BO PHYSICIAN: REFERRING PHYSICIAN: ALON GUSTAFSON MD DATE OF SERVICE: 06/11/19 Discharge Plan Patient Name: CARLOS JOY Facility: [facility]:[place] : 1945 Planned Disposition: Acute Care Hospital Anticipated Discharge Date: 06/11/19 Discharge Date: Expected LOS: 1 Initial Reviewer: [id number] Initial Review Date: 06/10/2019 Generated: 06/11/19 2:04 pm Comments DCP- Discharge Planning Updated by [id number]: Nicole Lacey on 06/11/19 10:[address] @1100, RECEIVED A TRANSFER ORDER ON PATIENT. DR GUSTAFSON WANTS THE PATIENT TRANSFERRED TO HIMSELF AT [facility]. @1105, I CALLED AND GOT ADMINISTRATION AUTHORIZATION FOR TRANSFER SECONDARY TO NO NEUROLOGY COVERAGE FROM ECTOR PURDY RN [employer] MAN VIA [employer] RNSIZE MIXER. I HAVE SPOKE WITH SERGIO IN THE CASEMANAGEMENT OFFICE AND EXPLAINED THAT WE ARE WAITING ON A TRANSFER BACK AGREEMENT TO BE FAXED TO US. [facility] WILL GIVE US A BED AND NUMBER TO CALL REPORT TO WHEN WE HAVE THIS FAXED BACK TO THEM. DCPIA - Discharge Planning Initial Assessment Updated by [id number]: Monster Ramirez on 06/11/19 1:02 pm * Is the patient Alert and Oriented? No * How many steps to enter\exit or inside your home? NONE * PCP [facility] * Pharmacy [facility] * Preadmission Environment Home with Family * ADLs Partial Dependent * Partial ADLs (Assistance needed) Medication Management * Equipment Rolling Walker Wheelchair * Other Equipment NO MEDICAL EQUIPMENT PROVIDER PREFERENCE * List name and contact numbers for known caregivers / representatives who currently or will assist patient after discharge: WAYNE JOY, SPOUSE, * Verbal permission to speak to the caregivers and representatives has been obtained from the patient. N/A * Community resources currently utilized Home Health * Please name any agencies selected above. [facility] * Additional services required to return to the preadmission environment? Yes * Can the patient safely return to the preadmission environment? Yes * Has this patient been hospitalized within the prior 30 days at any hospital? No External Providers External Provider: OTHER-OTHER Next Contact Date: 06/11/2019 Service Request Date: Service Type: Resolution: Reviewer: Comments: Patient Name: CARLOS JOY Page 22605 at 1305 All edits/amendments must be made on the electronic document DICTATION DATE: 06/11/19 1305 LIFT ELECTRICIAN: ISMAEL 06/11/19 1305 RPT#: [id number] DC DATE: STATUS: ADM IN [facility] [address] [place] [address] END OF REPORT
--- NOTE | 2019-06-11 13:13 | MORECARE ---
CASE MANAGEMENT DISCHARGE SUMMARY PATIENT: CARLOS JOY SR UNIT: [id number] ADM DATE: 06/10/19 AGE: 73 : 43 SEX: M ROOM/BED: D.5893 AUTHOR: BO FERGUSON PHYSICIAN: REFERRING PHYSICIAN: ALON GUSTAFSON MD DATE OF SERVICE: 06/11/19 Discharge Plan Patient Name: CARLOS JOY Facility: [facility]:[place] : 1945 Planned Disposition: Acute Care Hospital Anticipated Discharge Date: 06/11/19 Discharge Date: Expected LOS: 1 Initial Reviewer: [id number] Initial Review Date: 06/10/2019 Generated: 06/11/19 2:12 pm Comments DCP- Discharge Planning Updated by [id number]: Monster Ramirez on 06/11/19 12:[address] Patient Name: CARLOS JOY Admission Status: ER Accout number: [id number] Admission Date: 06-10-2019 : 1945 Admission Diagnosis: Attending: ALON GUSTAFSON Current LOS: 1 Anticipated DC Date: 06-11-2019 Planned Disposition: Acute Care Hospital Primary Insurance: MEDICARE A & B PLANNED EXTERNAL PROVIDER: [facility] Discharge Planning Comments: CM RECEIVED ORDER FOR TRANSFER. CM SPOKE TO DR. GUSTAFSON WHO PLACED CM ON THE PHONE WITH [employer] SUPERVISOR VENESSA JOYCE WHO INFORMED CM THAT DR. GUSTAFSON IS ACCEPTING PT AT [facility], SHE WILL PROVIDE ROOM NUMBER AND NUMBER FOR NURSE REPORT ONCE TRANSFER BACK AGREEMENT IS SIGNED AND RECEIVED. ISIAH'S CALL BACK NUMBER IS [phone]. CM RECEIVED TRANSFER BACK AGREEMENT VIA FAX. CM MET WITH PT AND SPOUSE IN ROOM. PT NON VERBAL. PT'S SPOUSE REPORTS SPEAKING TO ABOUT TRANSFER TO [facility] IN [place] AND SHE IS IN AGREEMENT WITH TRANSFER. SPOUSE ASKED CM IF SHE CAN RIDE IN THE AMBULANCE. CM EXPLAINED THAT THE INDIVIDUAL AMBUALANCE CREW WILL HAVE TO MAKE THE DECISION AND INFORMED PT'S SPOUSE SHE MAY HAVE TO TAKE A TAXI TO [facility] AT COSTS OF 8 - 10 DOLLARS IF SHE HAS NO ONE TO TRANSPORT HER. CM EXPLAINED TRANSFER BACK AGREEMENT. PT'S SPOUSE SIGNED TRANSFER BACK AGREEMENT. CM FAXED TRANSFER BACK AGREEMENT TO ISIAH AT [facility] AT [phone]. CM NOTIFIED ISIAH AT [phone]. ISIAH WILL CALL CM WHEN THE TRANSFER BACK AGREEMENT IS RECEIVED AND WILL PROVIDE ROOM NUMBER AND NUMBER FOR NURSE REPORT. Other Spatial Scientist: Monster Ramirez DCP- Discharge Planning Updated by [email or web address]: Nicole Lacey on 06/11/19 10:[address] @1100, RECEIVED A TRANSFER ORDER ON PATIENT. DR GUSTAFSON WANTS THE PATIENT TRANSFERRED TO HIMSELF AT [facility]. @1105, I CALLED AND GOT ADMINISTRATION AUTHORIZATION FOR TRANSFER SECONDARY TO NO NEUROLOGY COVERAGE FROM ECTOR PURDY RN CORPORATE DRIVER VIA [employer]ILKINS RNMAILING MACHINE OPERATOR. I HAVE SPOKE WITH SERGIO IN THE CASEMANAGEMENT OFFICE AND EXPLAINED THAT WE ARE WAITING ON A TRANSFER BACK AGREEMENT TO BE FAXED TO US. [facility] WILL GIVE US A BED AND NUMBER TO CALL REPORT TO WHEN WE HAVE THIS FAXED BACK TO THEM. DCPIA - Discharge Planning Initial Assessment Updated by [id number]: Monster Ramirez on 06/11/19 1:02 pm * Is the patient Alert and Oriented? No * How many steps to enter\exit or inside your home? NONE * PCP [facility] * Pharmacy [facility] * Preadmission Environment Home with Family * ADLs Partial Dependent * Partial ADLs (Assistance needed) Medication Management * Equipment Rolling Walker Wheelchair * Other Equipment NO MEDICAL EQUIPMENT PROVIDER PREFERENCE * List name and contact numbers for known caregivers / representatives who currently or will assist patient after discharge: WAYNE JOY, SPOUSE, * Verbal permission to speak to the caregivers and representatives has been obtained from the patient. N/A * Community resources currently utilized Home Health * Please name any agencies selected above. [facility] * Additional services required to return to the preadmission environment? Yes * Can the patient safely return to the preadmission environment? Yes * Has this patient been hospitalized within the prior 30 days at any hospital? No Last DP export: 06/11/19 12:05 Patient Name: CARLOS JOY Page 33493 at 1313 All edits/amendments must be made on the electronic document DICTATION DATE: 06/11/191311 UX RESEARCH ASSOCIATE: ISMAEL 06/11/191311 RPT#: [id number] RI DATE: STATUS: ADM IN [facility] [address] [place] [address] END OF REPORT
--- NOTE | 2019-06-11 13:29 | MORECARE ---
CASE MANAGEMENT DISCHARGE SUMMARY PATIENT: CARLOS JOY SR UNIT: [id number] ADM DATE: 06/10/19 AGE: 73 : 41 SEX: M ROOM/BED: D.6223 AUTHOR: BO FERGUSON PHYSICIAN: REFERRING PHYSICIAN: ALON GUSTAFSON MD DATE OF SERVICE: 06/11/19 Discharge Plan Patient Name: CARLOS JOY Facility: [facility]:[place] : 1945 Planned Disposition: Acute Care Hospital Anticipated Discharge Date: 06/11/19 Discharge Date: Expected LOS: 1 Initial Reviewer: [email or web address] Initial Review Date: 06/10/2019 Generated: 06/11/19 2:29 pm Comments DCP- Discharge Planning Updated by [email or web address]: Monster Lundberg on 06/11/19 12:[address] Patient Name: CARLOS JOY Admission Status: ER Accout number: [id number] Admission Date: 06-10-2019 : 1945 Admission Diagnosis: Attending: ALON GUSTAFSON Current LOS: 1 Anticipated DC Date: 06-11-2019 Planned Disposition: Acute Care Hospital Primary Insurance: MEDICARE A & B PLANNED EXTERNAL PROVIDER: [facility] Discharge Planning Comments: CM RECEIVED ORDER FOR TRANSFER. CM SPOKE TO DR. GUSTAFSON WHO PLACED CM ON THE PHONE WITH [facility] SUPERVISOR VENESSA JOYCE WHO INFORMED CM THAT DR. GUSTAFSON IS ACCEPTING PT AT [facility], SHE WILL PROVIDE ROOM NUMBER AND NUMBER FOR NURSE REPORT ONCE TRANSFER BACK AGREEMENT IS SIGNED AND RECEIVED. ISIAH'S CALL BACK NUMBER IS [phone]. CM RECEIVED TRANSFER BACK AGREEMENT VIA FAX. CM MET WITH PT AND SPOUSE IN ROOM. PT NON VERBAL. PT'S SPOUSE REPORTS SPEAKING TO ABOUT TRANSFER TO [facility] IN [place] AND SHE IS IN AGREEMENT WITH TRANSFER. SPOUSE ASKED CM IF SHE CAN RIDE IN THE AMBULANCE. CM EXPLAINED THAT THE INDIVIDUAL AMBUALANCE CREW WILL HAVE TO MAKE THE DECISION AND INFORMED PT'S SPOUSE SHE MAY HAVE TO TAKE A TAXI TO [facility] AT COSTS OF 8 - 10 DOLLARS IF SHE HAS NO ONE TO TRANSPORT HER. CM EXPLAINED TRANSFER BACK AGREEMENT. PT'S SPOUSE SIGNED TRANSFER BACK AGREEMENT. CM FAXED TRANSFER BACK AGREEMENT TO ISIAH AT [facility] AT [phone]. CM NOTIFIED ISIAH AT [phone]. ISIAH WILL CALL CM WHEN THE TRANSFER BACK AGREEMENT IS RECEIVED AND WILL PROVIDE ROOM NUMBER AND NUMBER FOR NURSE REPORT. School Bus Inspector: Monster Lundberg Appended by Monster Lundberg on 06/11/2019 13:20 SUPERVISOR CARTOGRAPHY: CM RECEIVED CALL FROM VENESSA JOYCE OF [facility]. PT WILL ADMIT TO ROOM 234, NUMBER FOR NURSE REPORT IS [phone]. CO FOUNDER AND PRESIDENT NURSE NOTIFIED. PT'S SPOUSE NOTIFIED. MONSTER LUNDBERG, CASE MANAGEMENT. DCP- Discharge Planning Updated by [email or web address]: Nicole Lacey on 06/11/19 10:[address] @1100, RECEIVED A TRANSFER ORDER ON PATIENT. DR GUSTAFSON WANTS THE PATIENT TRANSFERRED TO HIMSELF AT [facility]. @1105, I CALLED AND GOT ADMINISTRATION AUTHORIZATION FOR TRANSFER SECONDARY TO NO NEUROLOGY COVERAGE FROM ECTOR PURDY RN [employer] BIOLOG[employer] TEACHER VIA MENDEZ WILKINS RNMIXER RUNNER. I HAVE SPOKE WITH SERGIO IN THE CASEMANAGEMENT OFFICE AND EXPLAINED THAT WE ARE WAITING ON A TRANSFER BACK AGREEMENT TO BE FAXED TO US. [facility] WILL GIVE US A BED AND NUMBER TO CALL REPORT TO WHEN WE HAVE THIS FAXED BACK TO THEM. DCPIA - Discharge Planning Initial Assessment Updated by [email or web address]: Monster Lundberg on 06/11/19 1:02 pm * Is the patient Alert and Oriented? No * How many steps to enter\exit or inside your home? NONE * PCP [facility] * Pharmacy [facility] * Preadmission Environment Home with Family * ADLs Partial Dependent * Partial ADLs (Assistance needed) Medication Management * Equipment Rolling Walker Wheelchair * Other Equipment NO MEDICAL EQUIPMENT PROVIDER PREFERENCE * List name and contact numbers for known caregivers / representatives who currently or will assist patient after discharge: WAYNE JOY, SPOUSE, * Verbal permission to speak to the caregivers and representatives has been obtained from the patient. N/A * Community resources currently utilized Home Health * Please name any agencies selected above. [facility] * Additional services required to return to the preadmission environment? Yes * Can the patient safely return to the preadmission environment? Yes * Has this patient been hospitalized within the prior 30 days at any hospital? No Last DP export: 06/11/19 12:13 Patient Name: CARLOS JOY Page [id number] at 1329 All edits/amendments must be made on the electronic document DICTATION DATE: 06/11/191328 ELECTRICAL PROJECT MANAGER: ISMAEL 06/11/19 1329 RPT#: [id number] DC DATE: STATUS: ADM IN [facility] [address] [place] [address] END OF REPORT
--- NOTE | 2019-06-11 13:50 | NUR ---
CALLED REPORT TO SUZETTE CLIFFORD AT [facility].
--- NOTE | 2019-06-11 13:56 | NUR ---
CALLED [facility] FOR TRANSFER. THEY STATE IT WILL BE ABOUT 45 MINUTES. I VERBALIZED UNDERSTANDING.
--- NOTE | 2019-06-11 14:13 | NUR ---
PT GIVEN BED BATH AND GOWN AND LINENS CHANGED BY THIS NURSE AND PHYSIOLOGY TEACHER.
--- NOTE | 2019-06-11 14:15 | NUR ---
I CALLED SPIKE MAKER VENESSA SIMMS TO COME SIGN TRANSFER PAPER.
--- NOTE | 2019-06-11 14:38 | NUR ---
PT LEFT ON STRETCHER WITH [employer] AND ACCOMPANIED BY .
== END 2019-06-11 14:39 | DRG 640 ==
LOC: D.ER 03:02 → D.M2 05:01
PROVIDERS: Emergency Medicine; ADMIT Internal Medicine Nephrology; ATTEND Internal Medicine Nephrology
PROC: 5A1D70Z Performance of Urinary Filtration, Intermittent, Less than 6 Hours Per Day (ICD-10-PCS; principal; 2019-06-10)
DX: E87.5 Hyperkalemia (principal); N18.6 End stage renal disease; I12.0 Hypertensive chronic kidney disease with stage 5 chronic kidney disease or end stage renal disease; E11.22 Type 2 diabetes mellitus with diabetic chronic kidney disease; Z99.2 Dependence on renal dialysis; I25.10 Atherosclerotic heart disease of native coronary artery without angina pectoris; F03.90 Unspecified dementia, unspecified severity, without behavioral disturbance, psychotic disturbance, mood disturbance, and anxiety; E78.5 Hyperlipidemia, unspecified; G25.3 Myoclonus; G30.9 Alzheimer's disease, unspecified; F02.80 Dementia in other diseases classified elsewhere, unspecified severity, without behavioral disturbance, psychotic disturbance, mood disturbance, and anxiety; N40.0 Benign prostatic hyperplasia without lower urinary tract symptoms; E03.9 Hypothyroidism, unspecified; R56.9 Unspecified convulsions; R82.71 Bacteriuria; Z86.73 Personal history of transient ischemic attack (TIA), and cerebral infarction without residual deficits

== ENCOUNTER 2019-07-02 17:31 | Inpatient (IN) | payer MEDICARE ==
[~2019-07-02] VITALS: Ht 193 cm; Wt 73.6 kg
[~2019-07-02 17:31] MED LIST changes: +ALBUTEROL SULF8.5 GM INH; +DIPROLENE 0.05%50 GM; +KEPPRA500 MG PO; +SYNTHROID50 MCG PO
[2019-07-02 17:55] LABS: BASOPHILS 0.9 % (0-2); EOSINOPHILS 4.4 % (0-7); HEMATOCRIT 28.3 % (42.0-54.0); HEMOGLOBIN 9.3 g/dL (13.5-17.5); IMMATURE GRANULOCYTES 0.3 % (0-5); LYMPHOCYTES 9.9 % (15-50); MCH 26.7 pg (26.0-34.0); MCHC 32.9 g/dL (31.0-37.0); MCV 81.3 fL (80.0-100.0); MEAN PLATELET VOLUME 9.8 fL (7.4-10.4); MONOCYTES 12.3 % (2-11); NEUTROPHILS 72.2 % (40-80); RBC 3.48 10x6/uL (4.20-6.10); RDW 17.1 % (11.5-14.5); WBC 6.8 10x3/uL (4.8-10.8)
[2019-07-02 17:56] LABS: PLATELET COUNT 237 10x3/uL (130-400)
[2019-07-02 18:08] LABS: CARBON DIOXIDE 30.6 mmol/L (21.0-32.0); CREATININE - SERUM 10.8 mg/dL (0.6-1.3); POTASSIUM - SERUM 5.6 mmol/L (3.5-5.1)
[2019-07-02 18:14] LABS: BILIRUBIN - TOTAL 0.75 mg/dL (0.2-1.3)
[2019-07-03 00:19] VITALS: BP 142/58; Ht 193 cm; Wt 73.6 kg
--- NOTE | 2019-07-03 01:25 | NUR ---
WHEN THE SOLE CEMENTER WENT TO CHECK PTS VITALS HE BECAME AGITATED AND RESTLESS. HIS IS REQUESTING MORE MELATONIN. SHE STATES IT HELPED HIM REST FOR A COUPLE OF HOURS. PAGED . WENT BACK INTO ROOM TO CHECK ON PT AND HIS BREATHING WAS SHALLOW. CLIENT SUPPORT MANAGER REPORTS HIM HAVING A HEART RATE OF 28. RAPID RESPONSE CALLED FOLLOWED BY PATI EPPERSON.
--- NOTE | 2019-07-03 08:54 | MORECARE ---
CASE MANAGEMENT DISCHARGE SUMMARY PATIENT: CARLOS JOY SR UNIT: [id number] ADM DATE: 07/02/19 AGE: 73 : 43 SEX: M ROOM/BED: D.2105 AUTHOR: BO FERGUSON PHYSICIAN: REFERRING PHYSICIAN: MICKIE NUNEZ DO DATE OF SERVICE: 07/03/19 Discharge Plan Patient Name: CARLOS JOY Facility: [facility]:[place] : 1945 Planned Disposition: Anticipated Discharge Date: 07/03/19 Discharge Date: 07/03/2019 Expected LOS: 1 Initial Reviewer: [id number] Initial Review Date: 07/02/2019 Generated: 07/03/19 9:53 am Patient Name: CARLOS JOY Page 49489 at 0854 All edits/amendments must be made on the electronic document DICTATION DATE: 07/03/1953 CABINETMAKER HELPER: DM 07/03/19 0853 RPT#: [id number] DC DATE:07/03/19 STATUS: DIS IN [facility] [address] [place] [address] END OF REPORT
== END 2019-07-03 05:07 | DRG 640 ==
LOC: D.ER 17:31 → D.M2 18:34
PROVIDERS: Emergency Medicine; ADMIT Internal Medicine; ATTEND Internal Medicine
PROC: 0BH17EZ Insertion of Endotracheal Airway into Trachea, Via Natural or Artificial Opening (ICD-10-PCS; principal; 2019-07-02)
DX: E87.5 Hyperkalemia (principal); N18.6 End stage renal disease; G92 Toxic encephalopathy; I12.0 Hypertensive chronic kidney disease with stage 5 chronic kidney disease or end stage renal disease; E11.22 Type 2 diabetes mellitus with diabetic chronic kidney disease; Z99.2 Dependence on renal dialysis; G30.9 Alzheimer's disease, unspecified; F02.80 Dementia in other diseases classified elsewhere, unspecified severity, without behavioral disturbance, psychotic disturbance, mood disturbance, and anxiety; I25.10 Atherosclerotic heart disease of native coronary artery without angina pectoris; E78.5 Hyperlipidemia, unspecified; K21.9 Gastro-esophageal reflux disease without esophagitis; D63.1 Anemia in chronic kidney disease; I49.9 Cardiac arrhythmia, unspecified; R40.2353 Coma scale, best motor response, localizes pain, at hospital admission; R40.2143 Coma scale, eyes open, spontaneous, at hospital admission; R40.2243 Coma scale, best verbal response, confused conversation, at hospital admission; R56.9 Unspecified convulsions